=== PATIENT | female | born 1940 | race Two or more races ===

== ENCOUNTER 2021-08-02 11:08 | Observation (INO) ==
--- NOTE | 2021-08-02 12:34 | Emergency Department Note ---
History of Present Illness General Chief complaint: Hypertension Time Seen by Provider: 08/02/21 12:12 Source: patient and family Limitations: language barrier History of Present Illness Provider complaint: Difficulty walking Onset (ago): hour(s) Location: lower extremity, left and right Severity: mild Pain Consistency: + constant Quality: + other (Legs are heavy and very unsteady on her feet) Relieved By: + none Associated symptoms: + shortness of breath (Mild shortness of breath but now resolved); no chest pain, no cough, no fever/chills, no headaches, no nausea/vomiting or no weakness This is a 80-year-old female with a history of hypertension and remote CVA pre senting from home with difficulty walking. The patient and her son is providing history. I did offer a dial lathe operator but the patient son preferred to translate and she does have some grasp of the Beninese language. He got a phone call from her at 9 AM. She stated that she felt very unsteady on her feet and slightly short of breath so she went back to bed. She talk to her doctor over the telephone and her doctor sent her here for evaluation of possible CVA. The patient had a CVA about 15 years ago. She had some left-sided weakness at that time which mostly resolved. She states that she has been taking her high blood pressure medication. She does not have a history of diabetes. She currently denies any difficulty with her speech or swallowing or vision. She has no focal numbness or weakness. She states her legs feel somewhat heavy. She feels very unsure of her self when she is walking. She did fall a week ago and hit her face on the ground. She denies any headache and she was not evaluated at that time. Apparently she was walking behind the house and felt like her legs were weak and this caused her to fall. She had no LOC. She sat for a while and was able to walk back to the house after getting help from her son. She denies any vertigo, nausea or vomiting or dizziness. She has not had any fever or recent illness. She denies cough or cold symptoms, chest pain, abdominal pain, diarrhea or urinary symptoms. She is vaccinated for COVID-19. Home Medications Medication Instructions Recorded Confirmed Type aspirin 81 mg tablet 81 mg PO DAILY 08/02/21 08/02/21 History atenolol 50 mg-chlorthalidone 25 0.5 tab PO DAILY 08/02/21 08/02/21 History mg tablet atorvastatin 10 mg tablet 10 mg PO DAILY 08/02/21 08/02/21 History Allergies Allergy/AdvReac Type Severity Reaction Status Date / Time No Known Allergies Allergy Unverified 08/02/21 18:05 Past Med/Surg History Medical History (Updated 08/02/21 @ 20:18 by Ashutosh Waters MD) CVA (cerebral vascular accident) Hyperlipidemia Hypertension Social History Smoking Status: Never smoker Hx Alcohol Use: No Hx Substance Use: No Preferred Language: Marathi Communication Ability: Effective Communication Ability 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 and A total of 10 systems reviewed and were otherwise negative Physical Exam Vital Signs Vital Signs - 24 hr 08/02/21 11:16 08/02/21 11:30 08/02/21 12:00 Temperature Temperature Source Pulse Rate 83 90 71 Pulse Rate from SpO2 Sensor 83 88 71 Respiratory Rate 22 15 15 Blood Pressure 219/90 H 216/131 H 178/75 H Blood Pressure Mean 133 159 109 Pulse Oximetry 97 98 97 Oxygen Delivery Method Sepsis Recent Fever Within 48 Hours Sepsis New/Unexplained Change in Mental Status Sepsis Action Taken by Nursing 08/02/21 12:12 08/02/21 12:48 08/02/21 13:00 Temperature 37 C Temperature Source Oral Pulse Rate 80 87 90 Pulse Rate from SpO2 Sensor 91 H Respiratory Rate 18 15 Blood Pressure 185/84 H Blood Pressure Mean 117 Pulse Oximetry 98 99 Oxygen Delivery Method Room Air Sepsis Recent Fever Within 48 Hours No Sepsis New/Unexplained Change in Mental Status N/A Sepsis Action Taken by Nursing No Action Required 08/02/21 13:30 Temperature Temperature Source Pulse Rate 93 H Pulse Rate from SpO2 Sensor 90 Respiratory Rate 20 Blood Pressure 213/102 H Blood Pressure Mean 139 Pulse Oximetry 98 Oxygen Delivery Method Sepsis Recent Fever Within 48 Hours Sepsis New/Unexplained Change in Mental Status Sepsis Action Taken by Nursing Constitutional: Vital signs reviewed. Eyes: Pupils are equal round reactive to light. Conjunctiva are noninjected. ENT: Ecchymosis under the left orbit without significant tenderness. Pharynx is clear without erythema or exudate. Mucous membranes are moist. Neck supple without meningeal signs. Respiratory: Clear to auscultation bilaterally. Breath sounds are equal bilaterally. Cardiovascular: Regular rate and rhythm. No rubs or gallops. GI: Soft, nondistended and nontender. Bowel sounds are present. Musculoskeletal: No peripheral edema. No lower extremity tenderness. Integumentary: No cyanosis. or jaundice. Neurologic: The patient is awake and alert. Cranial nerves II-XII are intact. M otor is 5 out of 5 all extremities. Sensation is intact to light touch all extremities. Normal speech. No pronator drift. No limb ataxia. Wide-based gait not requiring any assistance. Psychiatric: Normal affect. Course Administered Medications Discontinued Medications Amlodipine Besylate (Amlodipine Besylate 5 Mg Tab) 5 mg PO NOW ONE Stop: 08/02/21 16:57 Last Admin: 08/02/21 18:29 Dose: 5 mg Documented by: [id number] Ioversol (Optiray 320 125ml) 119 ml IV ONCE ONE Stop: 08/02/21 12:36 Last Admin: 08/02/21 12:35 Dose: 119 ml Documented by: [id number] Medical Decision Making Differential Diagnosis TIA, CVA, intracranial hemorrhage, intracranial mass, metabolic derangement, infection, cardiac Medical Records Attestation: I reviewed the patient's medical records. I did perform a limited focused review of portions of the patient's old chart on the electronic medical record. The patient has had no prior visits to this hospital. Home Medications Current Medication List: was personally reviewed by me Laboratory Data Attestation: I reviewed the patient's lab results. Result diagrams: 08/02/21 12:17 08/02/21 12:26 Lab Results 08/02/21 08/02/21 08/02/21 Range/Units 12:17 12:26 12:26 WBC 7.64 (4.8-10.8) K/uL RBC 4.92 (4.2-5.4) M/uL Hgb 12.9 (12.0-16.0) g/dL Hct 40.2 (37-47) % MCV 81.7 (80-100) fL MCH 26.2 (25-34) pg MCHC 32.1 (32-36) g/dL RDW Std Deviation 44.1 (36.4-46.3) fL RDW Coeff of Jennifer 14.7 H (11.5-14.5) % Plt Count 244 (130-400) K/uL MPV 9.8 (7.4-10.4) fL Immature Gran % (Auto) 0.1 % Neut % (Auto) 70.9 % Lymph % (Auto) 17.5 % Cassia % (Auto) 7.1 % Eos % (Auto) 4.1 % Baso % (Auto) 0.3 % Neut # (Auto) 5.42 (1.4-6.5) K/uL Lymph # (Auto) 1.34 (1.2-3.4) K/uL Cassia # (Auto) 0.54 (0.11-0.59) K/uL Eos # (Auto) 0.31 (0-0.5) K/uL Baso # (Auto) 0.02 (0-0.2) K/uL Immature Gran # (Auto) 0.01 (0.00-0.02) K/uL PT 10.3 (9.0-12.0) Seconds INR 1.0 (0.9-1.1) APTT 25.9 (21.0-31.0) Seconds PTT Ratio 1.0 Sodium 139 (136-145) mmol/L Potassium 3.9 (3.5-5.1) mmol/L Chloride 105 (98-107) mmol/L Carbon Dioxide 28 (21-32) mmol/L Anion Gap 6.0 (3-11) BUN 14 (7-18) mg/dl Creatinine 0.88 (0.6-1.2) mg/dl Est Cr Clr Drug Dosing 48.4 ml/min Est GFR ( Amer) 72.4 ml/min Est GFR (Non-Af Amer) 62.5 ml/min BUN/Creatinine Ratio 15.9 (10-20) Glucose 117 H (70-99) mg/dl POC Glucose (70-99) mg/dl Calcium 9.1 (8.5-10.1) mg/dl Magnesium 2.3 (1.8-2.4) mg/dl Total Bilirubin 1.1 H (0.2-1) mg/dl AST 10 L (15-37) U/L ALT 18 (12-78) U/L Alkaline Phosphatase 105 (45-117) U/L Troponin I < 0.015 (0-0.045) ng/ml Total Protein 7.9 (6.4-8.2) gm/dl Albumin 3.4 (3.4-5.0) gm/dl Globulin 4.5 H (2.5-4.0) gm/dl Albumin/Globulin Ratio 0.8 L (0.9-2) 08/02/21 Range/Units 12:30 WBC (4.8-10.8) K/uL RBC (4.2-5.4) M/uL Hgb (12.0-16.0) g/dL Hct (37-47) % MCV (80-100) fL MCH (25-34) pg MCHC (32-36) g/dL RDW Std Deviation (36.4-46.3) fL RDW Coeff of Jennifer (11.5-14.5) % Plt Count (130-400) K/uL MPV (7.4-10.4) fL Immature Gran % (Auto) % Neut % (Auto) % Lymph % (Auto) % Cassia % (Auto) % Eos % (Auto) % Baso % (Auto) % Neut # (Auto) (1.4-6.5) K/uL Lymph # (Auto) (1.2-3.4) K/uL Cassia # (Auto) (0.11-0.59) K/uL Eos # (Auto) (0-0.5) K/uL Baso # (Auto) (0-0.2) K/uL Immature Gran # (Auto) (0.00-0.02) K/uL PT (9.0-12.0) Seconds INR (0.9-1.1) APTT (21.0-31.0) Seconds PTT Ratio Sodium (136-145) mmol/L Potassium (3.5-5.1) mmol/L Chloride (98-107) mmol/L Carbon Dioxide (21-32) mmol/L Anion Gap (3-11) BUN (7-18) mg/dl Creatinine (0.6-1.2) mg/dl Est Cr Clr Drug Dosing ml/min Est GFR ( Amer) ml/min Est GFR (Non-Af Amer) ml/min BUN/Creatinine Ratio (10-20) Glucose (70-99) mg/dl POC Glucose 101 H (70-99) mg/dl Calcium (8.5-10.1) mg/dl Magnesium (1.8-2.4) mg/dl Total Bilirubin (0.2-1) mg/dl AST (15-37) U/L ALT (12-78) U/L Alkaline Phosphatase (45-117) U/L Troponin I (0-0.045) ng/ml Total Protein (6.4-8.2) gm/dl Albumin (3.4-5.0) gm/dl Globulin (2.5-4.0) gm/dl Albumin/Globulin Ratio (0.9-2) Imaging Data Radiologist's Impression: Head CT 08/02/21 12:26 CT OF THE HEAD WITHOUT CONTRAST CLINICAL HISTORY: ataxia COMPARISON STUDY: No previous studies for comparison. CT DOSE: 523.20 mGycm TECHNIQUE: Helical axial images of the head were obtained without IV contrast. Automated exposure control was utilized for the study. A dose lowering technique was utilized adhering to the principles of ALARA. FINDINGS: No acute intracranial hemorrhage, midline shift or mass effect is present. In white matter hypodensity suggests small vessel disease. A 6 mm hypodensity within the right thalamus is noted. The ventricular system is unremarkable. The basal cisterns are patent. No extra-axial collections are present. There are no findings to suggest acute dural sinus thrombosis or acute territorial infarct. No significant calvarial abnormalities are present. Visual ized portions of the sinuses and mastoid air cells are clear. IMPRESSION: 1. No acute intracranial hemorrhage or mass effect. 2. 6 mm hypodensity within the thalamus. This represents an age indeterminate lacunar infarct. ACT 112: Negative or not required by law. Electronically signed by: Haim Rolon M.D. 08/02/2021 12:42 PM Head CTA 08/02/21 12:26 HEAD CTA HISTORY: Ataxia. Stroke like symptoms. TECHNIQUE: Multiaxial CT images of the head were performed both before and after the intravenous administration of contrast to evaluate the major cerebral vessels. Maximum intensity projection images were also obtained. A dose lowering technique was utilized adhering to the principles of ALARA. COMPARISON: Head CT 08/02/2021. FINDINGS: There is again noted a 6 mm hypodense focus within the right thalamus. This is better appreciated on the same day head CT. Visualized intracranial internal carotid arteries, distal vertebral arteries, and basilar artery are widely patent. There is no significant stenosis, occlusion, or aneurysm seen wit hin the bilateral ACAs, MCAs, or taker out. The major dural venous sinuses are patent. Moderate calcified plaque within the bilateral carotid siphons. IMPRESSION: No significant stenosis, occlusion, or aneurysm within the [place]. ACT 112: Negative or not required by law. Electronically signed by: Daniel Lara M.D. 08/02/2021 1:05 PM Neck CTA 08/02/21 12:26 CT ANGIOGRAM OF THE NECK CLINICAL HISTORY: Strokelike symptoms. COMPARISON STUDY: No priors. TECHNIQUE: Following the IV administration of 119 of Optiray 320, CT angiogram of the neck was performed from the aortic arch to the skull base. Images are rev iewed in the axial, sagittal, and coronal planes. 3-D MIPS images are created and assessed. IV contrast was administered without complication. All measurements were calculated based on NASCET criteria. A dose lowering technique was utilized adhering to the principles of ALARA. FINDINGS: Thoracic aorta: Visualized portions of the thoracic aorta are normal in caliber. The aortic arch demonstrates standard 3-vessel anatomy. Right carotid arterial system: The right common carotid artery is widely patent, as are the right internal and external carotid arteries. Mild calcified plaque is seen in the carotid bulb. Left carotid arterial system: The left common carotid artery is widely patent, as are the left internal and external carotid arteries. Calcified plaque is noted in the carotid bulb. Vertebral arteries: The vertebral arteries are widely patent bilaterally and codominant. Subclavian arteries: Widely patent bilaterally. Intracranial vasculature: The visualized intracranial vessels at the skull base are patent. See report of CT angiogram of the brain performed concurrently for detailed intracranial findings. Jugular veins: Widely patent bilaterally. Brain parenchyma: The visualized brain parenchyma the skull base is within normal limits. Lung apices: Partially visualized upper lobe lung parenchyma appears clear. Soft tissues: The visualized pharyngeal soft tissues are normal in appearance noting angiographic phase technique. The oropharyngeal airway appears widely patent. The thyroid gland is enlarged, heterogeneous, and infiltrated by numerous low-attenuation nodules. These measure up to 3.5 cm. The thyroid gland extends into the mediastinum and causes rightward deviation of the trachea. The salivary glands are normal in appearance. No cervical lymphadenopathy is seen. Skeletal structures: The skeletal structures are osteopenic. The visualized calvarium at the skull base appears intact. The imaged cervical spine is maintained noting mild multilevel spondylosis. No lytic or blastic lesion is seen. Sinuses and mastoids: The visualized paranasal sinuses are clear. The mastoid air cells are well pneumatized. IMPRESSION: 1. Unremarkable CT angiogram of the neck. 2. Multinodular goiter. ACT 112: Negative or not required by law. Electronically signed by: Stefano Ortega M.D. 08/02/2021 1:03 PM ECG Data Attestation: I personally reviewed and interpreted this ECG as follows: Indication: + other (Strokelike symptoms) Rate (beats per minute): 79 Rhythm: + normal sinus ECG Calvin: + Normal ECG ST segments: no ST elevation ECG Findings: no PVCs Head Trauma GCS Score: 15 MDM Narrative I did evaluate the patient as noted above. I did obtain history from the patient as well as her son. Apparently she has had difficulty walking this morning at 9 AM with some shortness of breath. She denies any chest pain. She had an episode similar to this about a week ago when she fell outside of her house hitting her head. She was not evaluated at that time. On exam here she is neurologically intact. She does have a wide-based gait but does not require any assistance walking. I did call a stroke alert and spoke to Dr. Villanueva of [place] stroke neurology. She agreed with me that the patient is not an IV TPA candidate as she has no focal deficits, she is severely hypertensive and the d iagnosis of stroke is not clear at this time. IV access was established. I did place an order for continuous cardiac monitoring. The monitor showed normal sinus rhythm at a rate of 90 bpm. I did order and personally review the patient's 12-lead EKG as described above. She has no acute ischemic changes. I did order and review the patient's blood work as noted in the electronic medical record. CBC and electrolytes are unremarkable. POC glucose is 101. Troponin is negative. I did order a CT of the head and stat angiogram of the head and neck. I did review the images myself as well as the radiology report as described above. She has an age indeterminate lacunar infarct in the right t halamus. This may represent her prior stroke as she did have left-sided symptoms at that time. No acute stroke is noted. There is no hemorrhage. There is no remarkable lesions on angiogram. I did reassess the patient. I did discuss the test results with the patient and her son. I did recommend hospitalization for further evaluation and MRI of the brain. Covid screening was negative. I did discuss case with the hospitalist and correctional case records supervisor. Later her PCP called to see how she was doing. She told me that the patient had told her on the phone today that she had some chest pressure when this occurred and that when she fell a week ago she had near syncopal symptoms. This was not conveyed to me earlier by the son or the patient. I therefore let the hospitalist service know who will order a echocardiogram and repeat cardiac biomarkers. Impression & Plan Ataxia, Poorly-controlled hypertension, Acute head injury, Chest pain, Near syncope Discharge Plan Visit Data Chief Complaint: Hypertension ED Provider: Ashutosh Waters Discharge Problem: Ataxia, Poorly-controlled hypertension, Acute head injury, Chest pain, Near syncope Patient Disposition: Admitted As Inpatient Discharge Instructions Interventions: ED Discharge Assessment Last Done: 08/02/21 16:28
[2021-08-02] MEDS ORDERED: OPTIRAY 320 125ml IV ONE (12:35)
[2021-08-02 12:38] LABS: Basophils # (auto) 0.02 K/uL (0-0.2); Basophils % (auto) 0.3 %; Eosinophils # (auto) 0.31 K/uL (0-0.5); Eosinophils % (auto) 4.1 %; Hematocrit (blood only) 40.2 % (37-47); Hemoglobin 12.9 g/dL (12.0-16.0); Immature Granulocytes # (auto) 0.01 K/uL (0.00-0.02); Immature Granulocytes % (auto) 0.1 %; Lymphocytes # (auto) 1.34 K/uL (1.2-3.4); Lymphocytes % (auto) 17.5 %; Mean Corpuscular Hemoglobin 26.2 pg (25-34); Mean Corpuscular Hgb Conc 32.1 g/dL (32-36); Mean Corpuscular Volume 81.7 fL (80-100); Mean Platelet Volume 9.8 fL (7.4-10.4); Monocytes # (auto) 0.54 K/uL (0.11-0.59); Monocytes % (auto) 7.1 %; Neutrophils # (auto) 5.42 K/uL (1.4-6.5); Neutrophils % (auto) 70.9 %; Platelet Count 244 K/uL (130-400); RDW Coefficient of Variation 14.7 % (11.5-14.5); RDW Standard Deviation 44.1 fL (36.4-46.3); Red Blood Count 4.92 M/uL (4.2-5.4); White Blood Count 7.64 K/uL (4.8-10.8)
--- NOTE | 2021-08-02 12:43 | CT Scan Report ---
CT OF THE HEAD WITHOUT CONTRAST CLINICAL HISTORY: ataxia COMPARISON STUDY: No previous studies for comparison. CT DOSE: 523.20 mGycm TECHNIQUE: Helical axial images of the head were obtained without IV contrast. Automated exposure con trol was utilized for the study. A dose lowering technique was utilized adhering to the principles o f ALARA. FINDINGS: No acute intracranial hemorrhage, midline shift or mass effect is present. In white matter hypodensity suggests small vessel disease. A 6 mm hypodensity within the right thalamus is noted. The ventricular system is unremarkable. The basal cisterns are patent. No extra-axial collections are pr esent. There are no findings to suggest acute dural sinus thrombosis or acute territorial infarct. No significant calvarial abnormalities are present. Visualized portions of the sinuses and mastoid air cells are clear. IMPRESSION: 1. No acute intracranial hemorrhage or mass effect. 2. 6 mm hypodensity within the thalamus. This represents an age indeterminate lacunar infarct. ACT 112: Negative or not required by law. Electronically signed by: Haim Rolon M.D. 08/02/2021 12:42 PM
[2021-08-02 12:50] LABS: Partial Thromboplastin Time 25.9 Seconds (21.0-31.0); Prothrombin Time 10.3 Seconds (9.0-12.0)
[2021-08-02 12:54] LABS: Alanine Aminotransferase 18 U/L (12-78); Albumin Level 3.4 gm/dl (3.4-5.0); Aspartate Aminotransferase 10 U/L (15-37); BUN Creatinine Ratio 15.9 (10-20); Blood Urea Nitrogen 14 mg/dl (7-18); Calcium 9.1 mg/dl (8.5-10.1); Carbon Dioxide 28 mmol/L (21-32); Chloride 105 mmol/L (98-107); Creatinine Clr Calc Pharmacy 48.4 ml/min; Est GFR (African American) 72.4 ml/min; Est GFR (Non-African American) 62.5 ml/min; Glucose 117 mg/dl (70-99); Magnesium 2.3 mg/dl (1.8-2.4); Potassium 3.9 mmol/L (3.5-5.1); Sodium 139 mmol/L (136-145)
[2021-08-02 12:59] LABS: Albumin Globulin Ratio 0.8 (0.9-2); Alkaline Phosphatase 105 U/L (45-117); Bilirubin,Total 1.1 mg/dl (0.2-1); Globulin 4.5 gm/dl (2.5-4.0); Total Protein 7.9 gm/dl (6.4-8.2); Troponin I < 0.015 ng/ml (0-0.045)
--- NOTE | 2021-08-02 13:05 | CT Scan Report ---
CT ANGIOGRAM OF THE NECK CLINICAL HISTORY: Strokelike symptoms. COMPARISON STUDY: No priors. TECHNIQUE: Following the IV administration of 119 of Optiray 320, CT angiogram of the neck was perfor med from the aortic arch to the skull base. Images are reviewed in the axial, sagittal, and coronal p lanes. 3-D MIPS images are created and assessed. IV contrast was administered without complication. A ll measurements were calculated based on NASCET criteria. A dose lowering technique was utilized adh ering to the principles of ALARA. FINDINGS: Thoracic aorta: Visualized portions of the thoracic aorta are normal in caliber. The aortic arch demo nstrates standard 3-vessel anatomy. Right carotid arterial system: The right common carotid artery is widely patent, as are the right int ernal and external carotid arteries. Mild calcified plaque is seen in the carotid bulb. Left carotid arterial system: The left common carotid artery is widely patent, as are the left civil engineering intern al and external carotid arteries. Calcified plaque is noted in the carotid bulb. Vertebral arteries: The vertebral arteries are widely patent bilaterally and codominant. Subclavian arteries: Widely patent bilaterally. Intracranial vasculature: The visualized intracranial vessels at the skull base are patent. See repor t of CT angiogram of the brain performed concurrently for detailed intracranial findings. Jugular veins: Widely patent bilaterally. Brain parenchyma: The visualized brain parenchyma the skull base is within normal limits. Lung apices: Partially visualized upper lobe lung parenchyma appears clear. Soft tissues: The visualized pharyngeal soft tissues are normal in appearance noting angiographic pha se technique. The oropharyngeal airway appears widely patent. The thyroid gland is enlarged, heteroge neous, and infiltrated by numerous low-attenuation nodules. These measure up to 3.5 cm. The thyroid g land extends into the mediastinum and causes rightward deviation of the trachea. The salivary glands are normal in appearance. No cervical lymphadenopathy is seen. Skeletal structures: The skeletal structures are osteopenic. The visualized calvarium at the skull ba se appears intact. The imaged cervical spine is maintained noting mild multilevel spondylosis. No lyt ic or blastic lesion is seen. Sinuses and mastoids: The visualized paranasal sinuses are clear. The mastoid air cells are well pneu matized. IMPRESSION: 1. Unremarkable CT angiogram of the neck. 2. Multinodular goiter. ACT 112: Negative or not required by law. Electronically signed by: Stefano Ortega M.D. 08/02/2021 1:03 PM
--- NOTE | 2021-08-02 13:06 | CT Scan Report ---
HEAD CTA HISTORY: Ataxia. Stroke like symptoms. TECHNIQUE: Multiaxial CT images of the head were performed both before and after the intravenous admi nistration of contrast to evaluate the major cerebral vessels. Maximum intensity projection images we re also obtained. A dose lowering technique was utilized adhering to the principles of ALARA. COMPARISON: Head CT 08/02/2021. FINDINGS: There is again noted a 6 mm hypodense focus within the right thalamus. This is better appre ciated on the same day head CT. Visualized intracranial internal carotid arteries, distal vertebral a rteries, and basilar artery are widely patent. There is no significant stenosis, occlusion, or aneury sm seen within the bilateral ACAs, MCAs, or food cooking machine operator. The major dural venous sinuses are patent. Moderate calcified plaque within the bilateral carotid siphons. IMPRESSION: No significant stenosis, occlusion, or aneurysm within the [place]. ACT 112: Negative or not required by law. Electronically signed by: Daniel Lara M.D. 08/02/2021 1:05 PM
--- NOTE | 2021-08-02 13:33 | History & Physical Report ---
Date of Service August 02, 2021 Assessment & Plan (1) Gait disturbance: (2) CVA (cerebral vascular accident): Plan: -Admit to tele for observation for possible CVA -stroke order set completed -CT of the head showing old 6 mm lacunar stroke, negative CTA head and neck today -Check 2D echo -Neurology consulted- Dr. Fuentes -Ordered MRI of the brain -A1c and lipid panel with a.m. labs -PT/OT consults, patient lives at home with her son (present at bedside) and d [id number], at baseline walks without ambulatory assistive device -Already on baby aspirin, atorvastatin 10 mg will be increased to high intensity statin therapy if pt can tolerate this (3) Hypertensive urgency: Plan: -BP elevated earlier today at 219/90 with dizziness which is now resolved, patient reported taking atenolol-chlorthalidone half tablet versus 1 tablet on her med rec in [place]. -Negative troponin x 1, will trend x 2 more sets to rule out ACS. Pt denies chest pain, shortness of breath currently. -Echo ordered -Consider cardiology consult (4) Hyperlipidemia: Plan: -Statin therapy as above -Check lipid panel with a.m. labs (5) Obesity (BMI 30.0-34.9): Plan: -BMI 31.7, diet exercise to be encouraged throughout hospital stay DVT ppx: - patricia saunderss CODE: DNR/DNI Dispo: From home, likely to remain in the hospital x 1 day Son, Desire, can be reached at [phone] if needed for questions and updates. 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 Approximately 1 week ago patient was outside for a walk in a park near her home. All of a sudden she became unbalanced and fell, striking her face causing bruising around her left eye, however did not seek medical attention at that time. Today at approximately 9 AM she redeveloped gait instability during a walk again but did not fall, no loss of balance. She called her PCP this morning and noted chest pressure/heaviness. Currently she denies chest complaints, dizziness, or shortness of breath. Her son, Daniel, who is present at bedside noting elevated blood pressure, and PCP instructed them to come to the ER for work-up. Her son acts as maintenance construction helper during our visit and all their questions and concerns were addressed. Here is the ER she was stroke alert. No acute findings seen on CT. Home Medications Medication Instructions Recorded Confirmed Type aspirin 81 mg tablet 81 mg PO DAILY 08/02/21 08/02/21 History atenolol 50 mg-chlorthalidone 25 0.5 tab PO DAILY 08/02/21 08/02/21 History mg tablet atorvastatin 10 mg tablet 10 mg PO DAILY 08/02/21 08/02/21 History Past Med/Surg History Medical History (Updated 08/02/21 @ 14:57 by Steff Black PA-C) CVA (cerebral vascular accident) Hyperlipidemia Hypertension Social History Smoking Status: Never smoker Preferred Language: Joseluis Feels Safe at Home: Yes Review of Systems Review of Systems: Constitutional: No fever, sweats or chills Eyes: No diplopia, no worsening or blurred vision ENT: normal hearing, no trouble swallowing Respiratory: No cough, sputum, dyspnea at rest or on exertion Cardiovascular: No chest pain, tightness or palpitations Abdomen: No pain, nausea, vomiting, diarrhea or constipation Musculoskeletal: Left knee pain s/p fall 1 week ago, no other joint pain, calf pain, swelling Neurologic: As per HPI. Otherwise No weakness, numbness/tingling, or balance problems Psychiatric: + anxiety, no depression Skin: + ecchymosis around left eye s/p fall 1 week ago, otherwise no rash or itch Physical Exam Physical Exam: General: awake, alert, no apparent distress Head: Normocephalic, + ecchymosis surrounding the left eye orbit , no icteric involvement ENT: PERRL, EOMI, no pharyngeal exudate, mucous membranes moist Chest: Clear to auscultation, on room air, no adventitious breath sounds Cardiac: Regular rate and rhythm, no murmur, no JVD, normal peripheral pulses, good capillary refill Abdominal: NABS x 4 quadrants, soft, nondistended, nontender to palpation, no rebound or guarding Extremities: Normal inspection, no peripheral edema or erythema, calfs nontender to palpation Psych: Normal mood and affect Neuro: AAO x 3, strength intact bilaterally and rated 5/5, slight weakness compared in LLE to the RLE with hip flexor strength testing. No motor deficits, cerebellar movements are intact, can perform heel to baker testing without difficulty, speech is clear, no peripheral sensory deficits Results & Data Results & Data ([facility]) Vital Signs (Past 12 Hours) Vital Signs Temp Pulse Resp BP Pulse Ox 08/02/21 12:12 37 C 80 18 98 08/02/21 12:00 71 15 178/75 H 97 08/02/21 11:30 90 15 216/131 H 98 08/02/21 11:16 83 22 219/90 H [address] 08/02/21 12:26 CT OF THE HEAD WITHOUT CONTRAST CLINICAL HISTORY: ataxia COMPARISON STUDY: No previous studies for comparison. CT DOSE: 523.20 mGycm TECHNIQUE: Helical axial images of the head were obtained without IV contrast. Automated exposure control was utilized for the study. A dose lowering technique was utilized adhering to the principles of ALARA. FINDINGS: No acute intracranial hemorrhage, midline shift or mass effect is present. In white matter hypodensity suggests small vessel disease. A 6 mm hypodensity within the right thalamus is noted. The ventricular system is unremarkable. The basal cisterns are patent. No extra-axial collections are present. There are no findings to suggest acute dural sinus thrombosis or acute territorial infarct. No significant calvarial abnormalities are present. Visualized portions of the sinuses and mastoid air cells are clear. IMPRESSION: 1. No acute intracranial hemorrhage or mass effect. 2. 6 mm hypodensity within the thalamus. This represents an age indeterminate lacunar infarct. ACT 112: Negative or not required by law. Electronically signed by: Haim Rolon M.D. 08/02/2021 12:42 PM Head CTA 08/02/21 12:26 HEAD CTA HISTORY: Ataxia. Stroke like symptoms. TECHNIQUE: Multiaxial CT images of the head were performed both before and after the intravenous administration of contrast to evaluate the major cerebral vessels. Maximum intensity projection images were also obtained. A dose lowering technique was utilized adhering to the principles of ALARA. COMPARISON: Head CT 08/02/2021. FINDINGS: There is again noted a 6 mm hypodense focus within the right thalamus. This is better appreciated on the same day head CT. Visualized intracranial internal carotid arteries, distal vertebral arteries, and basilar artery are widely patent. There is no significant stenosis, occlusion, or aneurysm seen within the bilateral ACAs, MCAs, or procurement agent. The major dural venous sinuses are patent. Moderate calcified plaque within the bilateral carotid siphons. IMPRESSION: No significant stenosis, occlusion, or aneurysm within the [place]. ACT 112: Negative or not required by law. Electronically signed by: Daniel Lara M.D. 08/02/2021 1:05 PM Neck CTA 08/02/21 12:26 CT ANGIOGRAM OF THE NECK CLINICAL HISTORY: Strokelike symptoms. COMPARISON STUDY: No priors. TECHNIQUE: Following the IV administration of 119 of Optiray 320, CT angiogram of the neck was performed from the aortic arch to the skull base. Images are reviewed in the axial, sagittal, and coronal planes. 3-D MIPS images are created and assessed. IV contrast was administered without complication. All measurements were calculated based on NASCET criteria. A dose lowering technique was utilized adhering to the principles of ALARA. FINDINGS: Thoracic aorta: Visualized portions of the thoracic aorta are normal in caliber. The aortic arch demonstrates standard 3-vessel anatomy. Right carotid arterial system: The right common carotid artery is widely patent, as are the right internal and external carotid arteries. Mild calcified plaque is seen in the carotid bulb. Left carotid arterial system: The left common carotid artery is widely patent, as are the left internal and external carotid arteries. Calcified plaque is noted in the carotid bulb. Vertebral arteries: The vertebral arteries are widely patent bilaterally and codominant. Subclavian arteries: Widely patent bilaterally. Intracranial vasculature: The visualized intracranial vessels at the skull base are patent. See report of CT angiogram of the brain performed concurrently for detailed intracranial findings. Jugular veins: Widely patent bilaterally. Brain parenchyma: The visualized brain parenchyma the skull base is within normal limits. Lung apices: Partially visualized upper lobe lung parenchyma appears clear. Soft tissues: The visualized pharyngeal soft tissues are normal in appearance noting angiographic phase technique. The oropharyngeal airway appears widely patent. The thyroid gland is enlarged, heterogeneous, and infiltrated by numerous low-attenuation nodules. These measure up to 3.5 cm. The thyroid gland extends into the mediastinum and causes rightward deviation of the trachea. The salivary glands are normal in appearance. No cervical lymphadenopathy is seen. Skeletal structures: The skeletal structures are osteopenic. The visualized calvarium at the skull base appears intact. The imaged cervical spine is maintained noting mild multilevel spondylosis. No lytic or blastic lesion is seen. Sinuses and mastoids: The visualized paranasal sinuses are clear. The mastoid air cells are well pneumatized. IMPRESSION: 1. Unremarkable CT angiogram of the neck. 2. Multinodular goiter. ACT 112: Negative or not required by law. Electronically signed by: Stefano Ortega M.D. 08/02/2021 1:03 PM ECG Additional Comments: 02-AUG-2021 11:18:16 [facility]-EDSTAT ROUTINE RETRIEVAL Normal sinus rhythm Normal ECG No previous ECGs available 25mm/s 10mm/mV 150Hz 9.0.9 12SL 241 HD LATA: 12 Unconfirmed Vent. rate 79 BPM [place] interval 176 ms QRS duration 64 ms QT/QTc 370/424 ms Code Status & VTE Plan Code Status DNR/DNI - discussed with the patient and her son at bedside Supervising Physician Co-Signing Physician Notes History and physical exam performed by me History detailed by Steff Black PA-C, notable for 80-year-old female, [place] language of [place], with PMHx of multinodular goiter, CVA 15 years ago who presents with gait abnormality and instability. Son reported the only deficits from old stroke was some minimal occasional weakness on left side. Patient ambulates independently without cane or walker Had an episode of gait abnormality and fall 10 days ago without any loss of consciousness with bruise around left eye. No symptoms since until today when patient felt unsteady on her feet. Patient denied any chest pain but reported mild shortness of breath earlier. No cough. Physical exam notable for ecchymoses on left side of face, no dysdiadochokinesia/power grossly normal in extremities/no slurred speech/no sensory deficits. Blood work grossly unremarkable CT head show 6mm hypodensity in thalamus which represents age indeterminate lacunar infarct -Gait abnormality Ambulatory dysfunction Poorly controlled hypertension Based on history, there's concern for TIA/CVA on presentation Will complete stroke work up with Echo, PT/OT, A1c, lipid panel, Neuro consult Get MRI brain Continue aspirin Other possibility may be due to poorly controlled hypertension Monitor Will let BP run a bit higher for now. Monitor and manage as needed Follow up outstanding work up
[2021-08-02 15:07] LABS: Appearance Urine Clear (Clear); Bacteria Urine Automated 1+ (Negative); Bilirubin Urine Negative (Negative); Blood Urine Negative (Negative); Cast Urine Automated 0 /lpf (0-5); Color Urine Yellow; Glucose Urine UA Negative (Negative); Ketones Urine Negative (Negative); Leukocyte Esterase Urine 2+ (Negative); Nitrite Urine Negative (Negative); Protein Urine Negative (Negative); RBC Urine Automated 0-4 /hpf (0-4); Specific Gravity Urine 1.004 (1.000-1.030); Urobilinogen Urine Negative (Negative)
[2021-08-02] MEDS ORDERED: PHARMACIST DISCHARGE MED REC CONSULT PRN (16:47)
[2021-08-02] MEDS ORDERED: amLODIPine BESYLATE 5 MG TAB PO ONE (16:56)
[2021-08-02] MEDS ORDERED: PATIENT'S ALLERGY INFO NEEDS ENTERED SCH (17:00)
[2021-08-02] MEDS ORDERED: PNEUMOCOCCAL POLYSACCHARIDES 25 MCG/0.5 ML VIAL/SYR IM ONE (18:04)
[2021-08-02] MEDS ORDERED: LABETALOL HCL IV 5 MG/ML 20ML IV PRN (21:51)
--- NOTE | 2021-08-02 22:24 | Magnetic Resonance Report ---
MRI OF THE BRAIN WITHOUT CONTRAST CLINICAL HISTORY: Dizziness. Recent fall. Evaluate for cerebrovascular accident. COMPARISON STUDY: Head CT and CTA of the head performed earlier today. TECHNIQUE: Utilizing a 1.5 Fatmata magnet and dedicated coil, multiplanar, multiecho imaging of the bra in was performed without IV contrast. FINDINGS: There are no foci of restricted diffusion to suggest acute infarct. No acute intracranial h emorrhage, midline shift or mass effect is present. Basal cisterns are patent. There are no extra axi al collections. Moderate atrophy is noted. This accounts for mild ventricular dilatation. No intracra nial masses are identified on this unenhanced exam. There is an old 5 mm lacunar infarct within the r ight thalamus. White matter T2 hyperintense foci favor small vessel disease. Calvarial signal is norm al. IMPRESSION: No acute intracranial findings. ACT 112: Negative or not required by law. Electronically signed by: Haim Rolon M.D. 08/02/2021 10:23 PM
[2021-08-03 04:43] LABS: Basophils # (auto) 0.03 K/uL (0-0.2); Basophils % (auto) 0.3 %; Eosinophils # (auto) 0.25 K/uL (0-0.5); Eosinophils % (auto) 2.3 %; Hematocrit (blood only) 39.3 % (37-47); Hemoglobin 12.9 g/dL (12.0-16.0); Immature Granulocytes # (auto) 0.02 K/uL (0.00-0.02); Immature Granulocytes % (auto) 0.2 %; Lymphocytes # (auto) 1.82 K/uL (1.2-3.4); Lymphocytes % (auto) 16.7 %; Mean Corpuscular Hemoglobin 26.6 pg (25-34); Mean Corpuscular Hgb Conc 32.8 g/dL (32-36); Mean Platelet Volume 9.4 fL (7.4-10.4); Monocytes # (auto) 0.97 K/uL (0.11-0.59); Monocytes % (auto) 8.9 %; Neutrophils # (auto) 7.84 K/uL (1.4-6.5); Neutrophils % (auto) 71.6 %; Platelet Count 232 K/uL (130-400); RDW Coefficient of Variation 14.8 % (11.5-14.5); RDW Standard Deviation 43.9 fL (36.4-46.3); Red Blood Count 4.85 M/uL (4.2-5.4); White Blood Count 10.93 K/uL (4.8-10.8)
[2021-08-03 04:59] LABS: BUN Creatinine Ratio 19.3 (10-20); Blood Urea Nitrogen 17 mg/dl (7-18); Calcium 8.8 mg/dl (8.5-10.1); Carbon Dioxide 25 mmol/L (21-32); Chloride 107 mmol/L (98-107); Creatinine Clr Calc Pharmacy 48.4 ml/min; Est GFR (African American) 72.4 ml/min; Est GFR (Non-African American) 62.5 ml/min; Glucose 134 mg/dl (70-99); Potassium 3.5 mmol/L (3.5-5.1); Sodium 139 mmol/L (136-145)
[2021-08-03 05:04] LABS: Chol HDL Ratio 3; Cholesterol 133 mg/dl (0-200); HDL Cholesterol 54 mg/dl; LDL Cholesterol Calculated 58 mg/dl; Triglycerides 105 mg/dl (0-150); Troponin I < 0.015 ng/ml (0-0.045); VLDL Cholesterol 21 mg/dl
--- NOTE | 2021-08-03 07:01 | Electrocardiogram Report ---
Test Reason : Blood Pressure : / mmHG Vent. Rate : 079 BPM Atrial Rate : 079 BPM P-R Int : 176 ms QRS Dur : 064 ms QT Int : 370 ms P-R-T Axes : 038 017 029 degrees QTc Int : 424 ms Normal sinus rhythm Normal ECG No previous ECGs available Confirmed by Gonzales Doss ([id number]) on 08/03/2021 7:01:22 AM Referred By: Confirmed By:Gonzales Doss
[2021-08-03 07:59] LABS: Estimated Average Glucose 140 mg/dl; Hemoglobin A1C 6.5 % (4.5-5.6)
[2021-08-03] MEDS ORDERED: ASPIRIN 81 MG ECTAB PO SCH (09:00)
[2021-08-03] MEDS ORDERED: CHLORTHALIDONE 25 MG TAB PO SCH ×2 (09:00)
[2021-08-03] MEDS ORDERED: ATENOLOL 50 MG TABLET PO SCH (09:00)
[2021-08-03] MEDS ORDERED: ATORVASTATIN 10 MG TAB PO SCH (09:00)
[2021-08-03] MEDS ORDERED: ATENOLOL 25 MG TABLET PO SCH (09:00)
[2021-08-03] MEDS ORDERED: ATENOLOL CHLORTHALIDONE PO SCH (09:00)
--- NOTE | 2021-08-03 12:36 | Consultation Report ---
DATE OF CONSULTATION: 08/03/2021. CHIEF COMPLAINT: Gait disturbance or ataxia. HISTORY OF PRESENT ILLNESS: A 80-year-old woman with the teller language of [place]athi in a past medical history of type 2 diabetes, prior lacunar infarct 15 years ago involving the right thalamus and posterior left basal ganglia who was admitted to the hospital yesterday for a gait abnormality and gait difficulty. 1 week ago, the patient was outside on a walk in the park near her house and had some unbalance and fell. She did strike her head causing a bruise around the left eye. However, she did not seek medical attention. Unfortunately, yesterday around 9:00 a.m., she redeveloped gait difficulty during the walk, but did not fall or no loss of balance. She called her PCP and noted chest pressure and heaviness. She also was noted to have elevated blood pressures, so she was directed to come to the ER for further workup. Her son does act as a electric spot welder during their visit and the questions and concerns were addressed in the ER, stroke alert was called. No acute findings were seen on CT. The patient did not receive IV tPA or tenecteplase. The patient was admitted with Neurology consult upon admission due to concern for stroke. HOME MEDICATIONS: She is on aspirin 81 mg daily, atenolol 50 mg, chlorthalidone 25 mg, Lipitor 10 mg. PAST MEDICAL HISTORY: Type 2 diabetes, hypertension, hyperlipidemia, lacunar infarct. PAST SURGICAL HISTORY: Reviewed. No recent surgical history. SOCIAL HISTORY: She is a nonsmoker. No heavy alcohol use. FAMILY HISTORY: No pertinent family history. REVIEW OF SYSTEMS: A 14-point review of systems was conducted and negative except as positive for anxiety, gait difficulty, ecchymosis around the left eye. PHYSICAL EXAMINATION: VITAL SIGNS: Blood pressure 170/98, pulse is 96, respiratory rate 16, temperature is 36.9 degrees Celsius, oxygen saturation 98% on room air. GENERAL: On physical examination, patient appears normally developed and appears stated age. She is in no distress. HEENT: Her eyes are midline. Normal conjunctivae. Her head is normocephalic and atraumatic. NECK: Supple. LUNGS: Normal respiratory effort. CARDIAC: Pulses are intact. ABDOMEN: Nontender and nondistended. SKIN: There is bruising around the left eye, no skin rash. PSYCHOLOGICAL: She has a regular rate and normal affect for psychological exam. NEUROLOGIC: She is awake and alert. She is oriented to person and place. She speaks Joseluis. Pupils are symmetric. Extraocular muscles are intact. Facial sensation is intact. No facial asymmetry. Intact hearing. Palate is symmetric. Good shoulder shrug. Tongue is midline. Gait evaluation, deferred. She has no tremor, no ataxia with [id number] testing. Sensation is intact to light touch. Muscle tone is normal. Muscle exam 5/5. Reflexes showed negative Jimenez sign, no ankle clonus. Gait evaluation as noted earlier was deferred. DIAGNOSTIC TESTING AND LABORATORY VALUES: WBC 10.93, hemoglobin 12.9, platelet count is 232. INR is 1.0. Sodium is 139, potassium 3.5, chloride 107, carbon dioxide 25, BUN is 17, creatinine 0.88. Hemoglobin A1c is 6.5, calcium is 9.1, magnesium is 2.3, AST is 10, ALT is 18. Troponin is negative. LDL is 58, HDL is 54. Urinalysis showed 2+ leukocyte esterase, 10-30 WBCs, 1+ bacteria. Urine culture is pending. Head CT and head and neck CTA showed no significant stenosis, occlusion or aneurysm. It was unremarkable CT angiogram of the neck and multinodular goiter was noted. MRI of the brain showed no acute intracranial findings. No foci of restricted diffusion to suggest acute infarct. No intracranial hemorrhage, moderate atrophy is noted. No intracranial masses are identified. There is an old 5 mm lacunar infarct within the right thalamus. White matter changes favor small vessel ischemic disease. ASSESSMENT: A 80-year-old woman with a history of type 2 diabetes, hypertension, hyperlipidemia, and prior small vessel ischemic stroke on aspirin, presenting with transient ataxia or gait difficulty. Hospital workup was thorough without any evidence of acute ischemic stroke including no large vessel occlusion or high-grade stenosis. Transient ataxia or gait difficulty in isolation is unlikely related to cerebrovascular disease. I do not believe this patient had a stroke or TIA. Differential diagnosis certainly includes hypertensive urgency. RECOMMENDATION: Recommend gradual reduction of blood pressures with goal of normotension including systolic blood pressure less than 140, diastolic blood pressure less than 90. Recommend to continue home aspirin and home Lipitor. Would recommend physical therapy and occupational therapy for any rehabilitation needs. The patient may benefit from outpatient physical therapy. If intermittent gait difficulty persists, would consider Neurology followup as an outpatient, otherwise, the patient can follow up with her PCP. Please contact me with any additional questions or concerns. Job ID: [id number] JUDITH
[2021-08-03] MEDS ORDERED: amLODIPine BESYLATE 5 MG TAB PO ONE (13:30)
--- NOTE | 2021-08-03 15:01 | Hospitalist Progress Note ---
Date of Service August 03, 2021 Assessment & Plan (1) Gait disturbance: Plan: Due to risk factors and previous CVA, there was concern for TIA/CVA CT head show 6 mm hypodensity in the thalamus which represent age-indeterminate lacunar infarct. MRI brain did not show any acute abnormalities. Low likelihood for CVA TIA. PT/OT evaluation noted. Will require walker and home PT. park manager notified. A1c 6.5 (2) Hypertensive urgency: Plan: -BP elevated earlier today at 219/90 with dizziness which is now resolved, patient reported taking atenolol-chlorthalidone half tablet versus 1 tablet on her med rec in [place]. Blood pressure still poorly controlled. Continue Atenolol 50 mg and chlorthalidone 25 mg. Amlodipine 5 mg added. Monitor blood pressure (3) Hyperlipidemia: Plan: Continue home atorvastatin (4) Obesity (BMI 30.0-34.9): Plan: BMI 31.7 Lifestyle modification DVT ppx: - teds, scds CODE: DNR/DNI SonDesire, can be reached at [phone] if needed for questions and updates. Admission and Anticipated Discharge Date Admission Date: August 02, 2021 Subjective 80-year-old female, [place] language of [place], with PMHx of multinodular goiter, CVA 15 years ago who presents with gait abnormality /instability and fall 10 days ago. Being managed for hypertensive urgency and admitted for possible CVA work up Patient seen and examined Communicated using special police officer (orthodox) Denied any new complaints Review of Systems Review of Systems: Other ROS negative Physical Exam Constitutional: + well hydrated; no acute distress Eyes: PERRL, conjunctivae normal, anicteric sclerae ENMT: external ear and nose normal, oropharynx normal Respiratory: normal respiratory effort, lungs clear to auscultation Cardiovascular: Rate/Rhythm: regular rate and regular rhythm S1 S2 Gastrointestinal (Abdomen): normal bowel sounds, soft, nontender, no hepatosplenomegaly Musculoskeletal: no cyanosis or clubbing, extremities motor strength 5/5 Neurologic: PERRL, EOMI, accommodation nl, no face palsy, no dysarthria Psychiatric: A+Ox3, euthymic affect Results & Data Results & Data ([facility]) Vital Signs (Past 12 Hours) Vital Signs Temp Pulse Pulse Resp BP BP Pulse Ox 08/03/21 11:44 37.0 C 66 16 181/84 H 96 08/03/21 09:52 96 H 08/03/21 08:00 36.9 C 88 16 170/98 H 98 08/03/21 03:42 36.6 C 99 H 20 174/93 H 97 Laboratory Results Abnormal lab results 08/02/21 08/03/21 08/03/21 Range/Units 14:43 04:31 04:31 WBC 10.93 H (4.8-10.8) K/uL RDW Coeff of Jennifer 14.8 H (11.5-14.5) % Neut # (Auto) 7.84 H (1.4-6.5) K/uL Winkler # (Auto) 0.97 H (0.11-0.59) K/uL Glucose 134 H (70-99) mg/dl Hemoglobin A1c (4.5-5.6) % Urine pH 8.0 H (4.5-7.5) Ur Leukocyte Esterase 2+ H (Negative) Urine WBC (Auto) 10-30 H (0-5) /hpf U Epithel Cells (Auto) 10-20 H (0-5) /lpf Urine Bacteria (Auto) 1+ H (Negative) 08/03/21 Range/Units 04:31 WBC (4.8-10.8) K/uL RDW Coeff of Jennifer (11.5-14.5) % Neut # (Auto) (1.4-6.5) K/uL Winkler # (Auto) (0.11-0.59) K/uL Glucose (70-99) mg/dl Hemoglobin A1c 6.5 H (4.5-5.6) % Urine pH (4.5-7.5) Ur Leukocyte Esterase (Negative) Urine WBC (Auto) (0-5) /hpf U Epithel Cells (Auto) (0-5) /lpf Urine Bacteria (Auto) (Negative)
[2021-08-03] MEDS ORDERED: STROKE PATIENT DISCHARGE STA (15:18)
--- NOTE | 2021-08-03 15:19 | Discharge Summary ---
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 Approximately 1 week ago patient was outside for a walk in a park near her home. All of a sudden she became unbalanced and fell, striking her face causing bruising around her left eye, however did not seek medical attention at that time. Today at approximately 9 AM she redeveloped gait instability during a walk again but did not fall, no loss of balance. She called her PCP this morning and noted chest pressure/heaviness. Currently she denies chest complaints, dizziness, or shortness of breath. Her son, Daniel, who is present at bedside noting elevated blood pressure, and PCP instructed them to come to the ER for work-up. Her son acts as consumer experience consultant during our visit and all their questions and concerns were addressed. Here is the ER she was stroke alert. No acute findings seen on CT. Admission Exam Per Admitting Provider General: awake, alert, no apparent distress Head: Normocephalic, + ecchymosis surrounding the left eye orbit , no icteric involvement ENT: PERRL, EOMI, no pharyngeal exudate, mucous membranes moist Chest: Clear to auscultation, on room air, no adventitious breath sounds Cardiac: Regular rate and rhythm, no murmur, no JVD, normal peripheral pulses, good capillary refill Abdominal: NABS x 4 quadrants, soft, nondistended, nontender to palpation, no rebound or guarding Extremities: Normal inspection, no peripheral edema or erythema, calfs nontender to palpation Psych: Normal mood and affect Neuro: AAO x 3, strength intact bilaterally and rated 5/5, slight weakness compared in LLE to the RLE with hip flexor strength testing. No motor deficits, cerebellar movements are intact, can perform heel to baker testing without difficulty, speech is clear, no peripheral sensory deficits Principal Diagnosis Hypertension urgency Gait abnormality Discharge Exam Constitutional + well hydrated; no acute distress Eyes PERRL, conjunctivae normal, anicteric sclerae ENMT external ear and nose normal, oropharynx normal Respiratory normal respiratory effort, lungs clear to auscultation Cardiovascular Rate/Rhythm: regular rate and regular rhythm S1 S2 Gastrointestinal (Abdomen) normal bowel sounds, soft, nontender, no hepatosplenomegaly Musculoskeletal no cyanosis or clubbing, extremities motor strength 5/5 Neurologic PERRL, EOMI, accommodation nl, no face palsy, no dysarthria Psychiatric A+Ox3, euthymic affect Discharge Data Allergies Allergy/AdvReac Type Severity Reaction Status Date / Time No Known Allergies Allergy Unverified 08/02/21 18:05 Consultations 08/02/21 14:33 ED Decision to Admit Stat 08/02/21 16:47 Consult Neurology Routine Ordered Studies 08/02/21 12:26 CT angio head w con Stat There is again noted a 6 mm hypodense focus within the right thalamus. This is better appreciated on the same day head CT. Visualized intracranial internal carotid arteries, distal vertebral arteries, and basilar artery are widely patent. There is no significant stenosis, occlusion, or aneurysm seen within the bilateral ACAs, MCAs, or cake cutter machine. The major dural venous sinuses are patent. Moderate calcified plaque within the bilateral carotid siphons. IMPRESSION: No significant stenosis, occlusion, or aneurysm within the [place] of [place] CT angio neck with con Stat Thoracic aorta: Visualized portions of the thoracic aorta are normal in caliber. The aortic arch demonstrates standard 3-vessel anatomy. Right carotid arterial system: The right common carotid artery is widely patent, as are the right internal and external carotid arteries. Mild calcified plaque is seen in the carotid bulb. Left carotid arterial system: The left common carotid artery is widely patent, as are the left internal and external carotid arteries. Calcified plaque is noted in the carotid bulb. Vertebral arteries: The vertebral arteries are widely patent bilaterally and codominant. Subclavian arteries: Widely patent bilaterally. Intracranial vasculature: The visualized intracranial vessels at the skull base are patent. See report of CT angiogram of the brain performed concurrently for detailed intracranial findings. Jugular veins: Widely patent bilaterally. Brain parenchyma: The visualized brain parenchyma the skull base is within normal limits. Lung apices: Partially visualized upper lobe lung parenchyma appears clear. Soft tissues: The visualized pharyngeal soft tissues are normal in appearance noting angiographic phase technique. The oropharyngeal airway appears widely patent. The thyroid gland is enlarged, heterogeneous, and infiltrated by numerous low-attenuation nodules. These measure up to 3.5 cm. The thyroid gland extends into the mediastinum and causes rightward deviation of the trachea. The salivary glands are normal in appearance. No cervical lymphadenopathy is seen. Skeletal structures: The skeletal structures are osteopenic. The visualized calvarium at the skull base appears intact. The imaged cervical spine is maintained noting mild multilevel spondylosis. No lytic or blastic lesion is seen. Sinuses and mastoids: The visualized paranasal sinuses are clear. The mastoid air cells are well pneumatized. IMPRESSION: 1. Unremarkable CT angiogram of the neck. 2. Multinodular goiter. CT head/brain wo con Stat No acute intracranial hemorrhage, midline shift or mass effect is present. In white matter hypodensity suggests small vessel disease. A 6 mm hypodensity within the right thalamus is noted. The ventricular system is unremarkable. The basal cisterns are patent. No extra-axial collections are present. There are no findings to suggest acute dural sinus thrombosis or acute territorial infarct. No significant calvarial abnormalities are present. Visualized portions of the sinuses and mastoid air cells are clear. IMPRESSION: 1. No acute intracranial hemorrhage or mass effect. 2. 6 mm hypodensity within the thalamus. This represents an age indeterminate lacunar infarct. 08/02/21 16:47 MR brain wo con Routine There are no foci of restricted diffusion to suggest acute infarct. No acute intracranial hemorrhage, midline shift or mass effect is present. Basal cisterns are patent. There are no extra axial collections. Moderate atrophy is noted. This accounts for mild ventricular dilatation. No intracranial masses are identified on this unenhanced exam. There is an old 5 mm lacunar infarct within the right thalamus. White matter T2 hyperintense foci favor small vessel disease. Calvarial signal is normal. IMPRESSION: No acute intracranial findings. Hospital Course (1) Gait disturbance: Due to risk factors and previous CVA, there was concern for TIA/CVA CT head show 6 mm hypodensity in the thalamus which represent age-indeterminate lacunar infarct. MRI brain did not show any acute abnormalities. Low likelihood for CVA or TIA. PT/OT evaluation noted. Will require walker and home PT. process manager arranged for home PT and walker will be delivered tomorrow. Son agreed to assist patient until walker arrives A1c 6.5 (2) Hypertensive urgency: -BP elevated earlier today at 219/90 with dizziness which is now resolved, patient reported taking half tablet of atenolol-chlorthalidone 50-25mg versus 1 tablet on her med list on [facility]. Son confirmed patient had been told to take only half tablet daily Dose was increased to full tab of atenolol-chlorthalidone 50-25mg inpatient She also got 2 doses of amlodipine while inpatient BP improved this afternoon Discharged on atenol-chlorthalidone 50-25mg one full tablet daily Advised to keep a BP log until follow up with PCP All information communicated to son as well. (3) Hyperlipidemia: Continue home atorvastatin (4) Obesity (BMI 30.0-34.9): BMI 31.7 Lifestyle modification Total Time Total Time Spent Total Time Spent (In Minutes): 60 Total Time Includes: Examination of the Patient, Discharge Planning and Medication Reconciliation Discharge Plan Discharge Items Patient Disposition: Home - Home Health Services Reason For Visit: HYPERTENSION Discharge Diagnosis: Hypertension urgency Gait abnormality Activity: Resume your previous activity Non-emergency contact: Primary Care Provider Call non-emergency contact if: you have any medication questions Follow-up/Referrals: Komal Salazar MD [Primary Care Provider] - Diet: Heart Healthy Addtl Attending Provider Instructions: Mrs Gonzalez. You came to the hospital due to gait abnormality. You also had severely elevated blood pressure. You were evaluated and was not found to have a stroke Please take one full tablet of your blood pressure medicine (atenolol-chlor thalidone 50-25) daily. Please ensure follow up with your Primary Doctor within 1 week. Keep a log of your home blood pressure. Please use the walker when you walk It was a pleasure taking care of you Pending Studies at Discharge: No Stand-Alone Forms: [facility] Guided Interventions, Smoking Cessation Medications and DC Order Prescriptions: New atenolol-chlorthalidone 50-25 mg tablet 1 tab PO DAILY Qty: 30 RF: 0 Continued atorvastatin 10 mg tablet 10 mg PO DAILY RF: 0 aspirin 81 mg Tablet 81 mg PO DAILY RF: 0 Discontinued atenolol-chlorthalidone 50-25 mg tablet 0.5 tab PO DAILY RF: 0 Discharge Orders: Discharge Order (Routine); Ordered 08/03/21 Ordered By: Amy Hackett/Other Patient Handouts: A1C, High Blood Sugar (Hyperglycemia), Hypoglycemia (Low Blood Sugar), Managing Type 2 Diabetes, Exercise to Manage Your Blood Sugar, Diabetes: Meal Planning Admission Data Admit Date/Time: 08/02/21 13:44 Attending Provider: Amy [place] I. Admit Provider: Steff Black Primary Care Provider: Komal Salazar Other Providers: Amy [place] I. ; Ash Fuentes Other Interventions: Discharge Summary Assessment (RN) Last Done: 08/03/21 15:26
[2021-08-04] MEDS ORDERED: amLODIPine BESYLATE 5 MG TAB PO SCH (09:00)
== END 2021-08-03 17:26 | disposition home health service (06) ==
LOC: 2S 11:08 → ED 11:08 → 2S 16:28

== ENCOUNTER 2023-02-28 12:17 | Inpatient (IN) ==
[2023-02-28] MEDS ORDERED: ALBUT/IPRATROP 3MG/0.5MG NEB 3 ML VIAL INH STA (12:39)
[2023-02-28] MEDS ORDERED: methylPREDNISolone 125 MG/2 ML VIAL IV STA (12:39)
[2023-02-28] MEDS ORDERED: CEFEPIME 2,000 MG/20 ML VIAL IV STA (12:39)
[2023-02-28] MEDS ORDERED: SODIUM CHLORIDE 0.9% 500 ML IV STA (12:39)
--- NOTE | 2023-02-28 12:45 | Emergency Department Note ---
Impression & Plan Weakness, SOB (shortness of breath), Parainfluenza infection, Failure of outpatient treatment, Acute hyponatremia ED Provider Note NAME: ARMANDO HUFFMAN AGE: 82 SEX: F : 1940 ARRIVES VIA: Ambulance INFORMANT: [Patient][ems, son] ED PROVIDER(S): [Stefano Murdock MD] CHIEF COMPLAINT: Short of breath HISTORY OF PRESENT ILLNESS: The patient is an 82-year-old female who has had respiratory symptoms for about 5 or 6 days. She has had a cough and congestion. She has been on prednisone and Augmentin as well as Flonase for the last 5 days. Despite this, last night, she had a fever, this morning, she was more short of breath and weak. As per EMS, the patient's blood sugar was 233. In addition to the above, the patient also complains of right upper back pain. The son believes it is from all of her coughing. She has no known coronary disease. The patient's son was sick a week ago with a respiratory illness, he thinks he may have passed it to his mother. His mother does live with him. Of note, the patient speaks Marathi. We did attempt translation via the [employer] ignacio but this was not very successful. The son was able to translate for us without difficulty. PMHx/PSHx: See Below SOCIAL HISTORY: See Below. PHYSICAL EXAM: GENERAL: Patient is in no acute distress. HEENT: No acute trauma, normocephalic atraumatic, mucous membranes moist, no nasal congestion. NECK: No stridor, no adenopathy, no meningismus, trachea is midline. LUNGS: No respiratory distress, breath sounds are diminished bilaterally with some wheezing and a few crackles, mostly on the right. HEART: Without murmurs gallops or rubs, regular rate and rhythm. Heart tones are distant. ABDOMEN: Soft, nontender, bowel sounds positive, no peritonitis. EXTREMITIES: No cyanosis or edema, full range of motion of all the joints without pain or difficulty, no signs for acute trauma. NEUROLOGIC: Oriented x 3, no acute motor or sensory deficits, no focal weakness. SKIN: No rash, no jaundice, no diaphoresis. DIFFERENTIAL DIAGNOSIS: Pneumonia, bronchitis, failed outpatient management, COVID-19, influenza, viral illness, anemia, electrolyte imbalance, bacteremia/sepsis, among others. EMERGENCY DEPARTMENT COURSE/PROCEDURES: Prior/Outside records reviewed: Previous discharge summary. ECG per my interpretation: Indication was shortness of breath. The ECG shows a sinus bradycardia with some baseline artifact. The rate is 58. There is no ST elevation, no PVCs. The QTc is 459. Continuous Cardiac Monitoring per my interpretation: An order was placed for continuous cardiac monitoring. The monitor shows a rate of 62 with normal sinus rhythm. Critical Care Note: I have personally spent 49 minutes of critical care time in the direct management of this patient. This includes bedside care, interpretation of diagnostic studies, and testing, discussion with consultants, patient, and family members, and other required patient management activities. This 49 minutes is in excess of all separately billable procedures. MEDICAL DECISION MAKING: There is a slight leukocytosis, this could be from infection or her recent steroid use. Hemoglobin was normal at 12.7. There was a normal platelet count. No coagulopathy. Lactic acid level was not not elevated making severe sepsis less likely. There were some subtle liver enzyme elevations. ECG shows a sinus bradycardia, no obvious ischemia. Cardiac enzyme testing x1 is not consistent with acute cardiac injury. Urinalysis shows contamination, no obvious infection. Respiratory bio fire does show findings of parainfluenza 3. Chest film per my review did not show pneumonia, CHF or pneumothorax. On exam, the patient was wheezing, no significant respiratory distress. Patient received 1 L of IV saline, she was given IV Solu-Medrol, IV cefepime, a DuoNeb. The patient presents with wheezing, shortness of breath and weakness. She has worsened despite Augmentin and prednisone as an outpatient. She is in need of a hospital stay given her findings. I did speak with the patient and her son. Case management has been involved. The on-call hospitalist was consulted. DISPOSITION: Patient's presentation and findings warrant a hospital stay. Past Med/Surg History Medical History CVA (cerebral vascular accident) Hyperlipidemia Hypertension Social History Smoking Status: Never smoker Hx Alcohol Use: No Hx Substance Use: No Preferred Language: Marathi Communication Ability: Effective Communication Ability Comment: milady Overton served as certified court interpreter Communication Tools: IPad Sheet [employer] Printer Required: Yes Beliefs That Will Affect Care: Zoroastrianism Zoroastrianism Beliefs: Buddhist and Cultural Cultural Beliefs: Buddhist Current Living Situation: Family How many Children do You have: 2 Feels Safe at Home: Yes Assistive Devices: None Allergies Allergies Allergy/AdvReac Type Severity Reaction Status Date / Time No Known Allergies Allergy Unverified 02/28/23 15:56 Home Meds Home Medications Medication Instructions Recorded Confirmed atorvastatin 10 mg tablet 10 mg PO DAILY 08/02/21 02/28/23 amoxicillin 875 mg-potassium 1 tab PO BID 02/28/23 02/28/23 clavulanate 125 mg tablet ascorbic acid (vitamin C) 100 mg 0 mg PO DAILY 02/28/23 02/28/23 tablet aspirin 81 mg capsule 81 mg PO DAILY 02/28/23 02/28/23 prednisone 20 mg tablet 20 mg PO UD 02/28/23 02/28/23 vitamin B complex 1 tab PO DAILY 02/28/23 02/28/23 Previous Rx's Medication Instructions Recorded atenolol 50 mg-chlorthalidone 25 1 tab PO DAILY #30 tabs 08/03/21 mg tablet Results & Data (ED) Vital Signs Vital Signs - 24 hr 02/28/23 12:31 02/28/23 12:43 02/28/23 12:39 Temperature 36.6 C Temperature Source Axillary Pulse Rate 57 L 58 L 58 L Pulse Rate [Apical] Pulse Rhythm Regular Pulse Rhythm [Apical] Pulse Strength [Apical] Respiratory Rate 20 20 Respiratory Effort / Characteristics Non-Labored Respiratory Depth Normal Respiratory Pattern Regular Blood Pressure 193/89 H Blood Pressure [Left Arm] Blood Pressure Mean 123 Blood Pressure Mean [Left Arm] Blood Pressure Position [Left Arm] Pulse Oximetry 95 95 Oxygen Delivery Method Room Air Room Air Sepsis Recent Fever Within 48 Hours No Sepsis New/Unexplained Change in Mental Status N/A Sepsis Action Taken by Nursing No Action Required 02/28/23 14:05 02/28/23 16:00 02/28/23 17:33 Temperature Temperature Source Pulse Rate 71 Pulse Rate [Apical] 67 64 Pulse Rhythm Pulse Rhythm [Apical] Regular Pulse Strength [Apical] Normal Respiratory Rate 21 18 Respiratory Effort / Characteristics Non-Labored Spontaneous Non-Labored Respiratory Depth Normal Normal Respiratory Pattern Regular Blood Pressure Blood Pressure [Left Arm] 171/63 H 143/54 H Blood Pressure Mean Blood Pressure Mean [Left Arm] 99 83 Blood Pressure Position [Left Arm] Lying Pulse Oximetry 94 94 Oxygen Delivery Method Room Air Room Air Sepsis Recent Fever Within 48 Hours Sepsis New/Unexplained Change in Mental Status Sepsis Action Taken by Prison Medications Current Medication List: was personally reviewed by me Laboratory Data Attestation: I reviewed the patient's lab results. 02/28/23 14:14 02/28/23 14:14 Lab Results 02/28/23 02/28/23 02/28/23 Range/Units 13:00 14:14 14:14 WBC 11.72 H (4.8-10.8) K/ul RBC 4.99 (4.20-5.40) M/uL Hgb 12.7 (12.0-16.0) g/dl Hct 35.8 L (37.0-47.0) % MCV 71.7 L (80.0-100.0) fL MCH 25.5 (25.0-34.0) pg MCHC 35.5 (32.0-36.0) g/dL RDW Std Deviation 33.4 L (36.4-46.3) fL RDW Coeff of Jennifer 13.1 (11.5-14.5) % Plt Count 284 (130-400) K/uL MPV 8.9 L (9.4-12.4) fL Immature Gran % (Auto) 0.9 % Neut % (Auto) 85.1 % Lymph % (Auto) 11.3 % [place] % (Auto) 2.6 % Eos % (Auto) 0.0 % Baso % (Auto) 0.1 % Neut # (Auto) 9.98 H (1.40-6.50) K/uL Lymph # (Auto) 1.32 (1.2-3.4) K/uL [place] # (Auto) 0.31 (0.11-0.59) K/uL Eos # (Auto) 0.00 (0-0.50) K/uL Baso # (Auto) 0.01 (0-0.2) K/uL Immature Gran # (Auto) 0.10 (0.01-0.20) K/uL PT 10.6 (9.0-12.0) Seconds INR 1.0 (0.9-1.1) APTT 29.4 (21.0-31.0) Seconds PTT Ratio 1.1 Sodium (136-145) mmol/L Potassium (3.5-5.1) mmol/L Chloride (98-107) mmol/L Carbon Dioxide (21-32) mmol/L Anion Gap (3-11) BUN (6-23) mg/dl Creatinine (0.6-1.2) mg/dl Est Cr Clr Drug Dosing ml/min Est GFR ( Amer) ml/min Est GFR (Non-Af Amer) ml/min BUN/Creatinine Ratio (10-20) Glucose (70-99(Fasting)) mg/dl Lactate (0.4-2.0) mmol/L Calcium (8.6-10.3) mg/dl Magnesium (1.7-2.4) mg/dl Total Bilirubin (0.2-1.0) mg/dl AST (13-39) U/L ALT (7-52) U/L Alkaline Phosphatase (34-104) U/L Troponin I High Sens (0-14) pg/ml Total Protein (6.0-8.3) gm/dl Albumin (3.4-5.0) gm/dl Globulin (2.5-4.0) gm/dl Albumin/Globulin Ratio (0.9-2) Urine Color Urine Appearance (Clear) Urine pH (4.5-7.5) Ur Specific [place] (1.000-1.030) Urine Protein (Negative) Urine Glucose (UA) (Negative) Urine Ketones (Negative) Urine Blood (Negative) Urine Nitrite (Negative) Urine Bilirubin (Negative) Urine Urobilinogen (Negative) Ur Leukocyte Esterase (Negative) Urine WBC (Auto) (0-5) /hpf Urine RBC (Auto) (0-4) /hpf U Hyaline Cast (Auto) (0-5) /lpf U Epithel Cells (Auto) (0-5) /lpf Urine Bacteria (Auto) (Negative) Adenovirus (PCR) Not Detected (NotDetected) B. pertussis DNA (PCR) Not Detected (NotDetected) B.parapertussis DNA PCR Not Detected (NotDetected) C. pneumoniae DNA (PCR) Not Detected (NotDetected) Coronavirus OC43 (PCR) Not Detected (NotDetected) Coronavirus HKU1 (PCR) Not Detected (NotDetected) Coronavirus 229E (PCR) Not Detected (NotDetected) SARS-CoV-2 (PCR) Not Detected (NotDetected) Coronavirus NL63 (PCR) Not Detected (NotDetected) Human Metapneumovir PCR Not Detected (NotDetected) Influenza Type A (PCR) Not Detected (NotDetected) Influenza Type B (PCR) Not Detected (NotDetected) M. pneumoniae (PCR) Not Detected (NotDetected) Parainfluenza 1 (PCR) Not Detected (NotDetected) Parainfluenza 2 (PCR) Not Detected (NotDetected) Parainfluenza 3 (PCR) DETECTED A* (NotDetected) Parainfluenza 4 (PCR) Not Detected (NotDetected) RSV (PCR) Not Detected (NotDetected) Entero/Rhino (PCR) Not Detected (NotDetected) 02/28/23 02/28/23 02/28/23 Range/Units 14:14 14:14 15:05 WBC (4.8-10.8) K/ul RBC (4.20-5.40) M/uL Hgb (12.0-16.0) g/dl Hct (37.0-47.0) % MCV (80.0-100.0) fL MCH (25.0-34.0) pg MCHC (32.0-36.0) g/dL RDW Std Deviation (36.4-46.3) fL RDW Coeff of Jennifer (11.5-14.5) % Plt Count (130-400) K/uL MPV (9.4-12.4) fL Immature Gran % (Auto) % Neut % (Auto) % Lymph % (Auto) % [place] % (Auto) % Eos % (Auto) % Baso % (Auto) % Neut # (Auto) (1.40-6.50) K/uL Lymph # (Auto) (1.2-3.4) K/uL [place] # (Auto) (0.11-0.59) K/uL Eos # (Auto) (0-0.50) K/uL Baso # (Auto) (0-0.2) K/uL Immature Gran # (Auto) (0.01-0.20) K/uL PT (9.0-12.0) Seconds INR (0.9-1.1) APTT (21.0-31.0) Seconds PTT Ratio Sodium 108 L* (136-145) mmol/L Potassium 3.2 L (3.5-5.1) mmol/L Chloride 70 L (98-107) mmol/L Carbon Dioxide 30 (21-32) mmol/L Anion Gap 8 (3-11) BUN 24 H (6-23) mg/dl Creatinine 0.65 (0.6-1.2) mg/dl Est Cr Clr Drug Dosing 69.1 ml/min Est GFR ( Amer) 96.5 ml/min Est GFR (Non-Af Amer) 83.3 ml/min BUN/Creatinine Ratio 36.9 H (10-20) Glucose 214 H (70-99(Fasting)) mg/dl Lactate 1.4 (0.4-2.0) mmol/L Calcium 8.1 L (8.6-10.3) mg/dl Magnesium 1.7 (1.7-2.4) mg/dl Total Bilirubin 1.5 H (0.2-1.0) mg/dl AST 45 H (13-39) U/L ALT 35 (7-52) U/L Alkaline Phosphatase 87 (34-104) U/L Troponin I High Sens 14.0 (0-14) pg/ml Total Protein 7.5 (6.0-8.3) gm/dl Albumin 3.8 (3.4-5.0) gm/dl Globulin 3.7 (2.5-4.0) gm/dl Albumin/Globulin Ratio 1.0 (0.9-2) Urine Color Yellow Urine Appearance Clear (Clear) Urine pH 7.5 (4.5-7.5) Ur Specific [place] 1.016 (1.000-1.030) Urine Protein Trace H (Negative) Urine Glucose (UA) Trace H (Negative) Urine Ketones Negative (Negative) Urine Blood Negative (Negative) Urine Nitrite Negative (Negative) Urine Bilirubin Negative (Negative) Urine Urobilinogen Negative (Negative) Ur Leukocyte Esterase 2+ H (Negative) Urine WBC (Auto) 1-5 (0-5) /hpf Urine RBC (Auto) 0-4 (0-4) /hpf U Hyaline Cast (Auto) 1-5 (0-5) /lpf U Epithel Cells (Auto) >30 H (0-5) /lpf Urine Bacteria (Auto) Negative (Negative) Adenovirus (PCR) (NotDetected) B. pertussis DNA (PCR) (NotDetected) B.parapertussis DNA PCR (NotDetected) C. pneumoniae DNA (PCR) (NotDetected) Coronavirus OC43 (PCR) (NotDetected) Coronavirus HKU1 (PCR) (NotDetected) Coronavirus 229E (PCR) (NotDetected) SARS-CoV-2 (PCR) (NotDetected) Coronavirus NL63 (PCR) (NotDetected) Human Metapneumovir PCR (NotDetected) Influenza Type A (PCR) (NotDetected) Influenza Type B (PCR) (NotDetected) M. pneumoniae (PCR) (NotDetected) Parainfluenza 1 (PCR) (NotDetected) Parainfluenza 2 (PCR) (NotDetected) Parainfluenza 3 (PCR) (NotDetected) Parainfluenza 4 (PCR) (NotDetected) RSV (PCR) (NotDetected) Entero/Rhino (PCR) (NotDetected) Administered Medications Discontinued Medications Albuterol (Albut/Ipratrop 3mg/0.5mg Neb 3 Ml Vial) 3 ml INH NOW STA Stop: 02/28/23 12:40 Last Admin: 02/28/23 13:23 Dose: 3 ml Documented By: KENDY Sodium Chloride (Nss) 500 mls @ 999 mls/hr IV .Q31M STA Stop: 02/28/23 13:09 Last Infusion: 02/28/23 14:23 Dose: 0 mls/hr Documented By: Admin: 02/28/23 13:23 Dose: 999 mls/hr Documented By: KENDY Cefepime HCl (Maxipime) 2,000 mg in 20 mls @ 5 mls/min IV NOW STA; Protocol Stop: 02/28/23 12:42 Last Admin: 02/28/23 14:51 Dose: 5 mls/min Documented By: MILES Sodium Chloride (Nss 1000ml) 500 mls @ 999 mls/hr IV .Q31M ONE Stop: 02/28/23 15:23 Last Infusion: 02/28/23 16:00 Dose: 0 mls/hr Documented By: Admin: 02/28/23 15:09 Dose: 999 mls/hr Documented By: JV Methylprednisolone (Methylprednisolone 125 Mg/2 Ml Vial) 60 mg IV NOW STA Stop: 02/28/23 12:40 Last Admin: 02/28/23 13:23 Dose: 60 mg Documented By: Imaging Data Radiologist's Impression: Chest X-Ray 02/28/23 12:39 XR chest 1V portable CLINICAL HISTORY: Dyspnea TECHNIQUE: Single frontal radiograph of the chest was obtained. Comparison: None available at the time of this dictation. FINDINGS: No lines and tubes are seen. Cardiomegaly is noted. The aortic arch is calcified. The lungs are clear. No evidence of pleural effusion or pneumothorax. IMPRESSION: No acute chest disease. Cardiomegaly is noted. No evidence of pneumonia. ACT 112: Negative or not required by law. Electronically signed by: Antonio Carlos M.D. 02/28/2023 12:55 PM Discharge Plan Visit Data Chief Complaint: Illness Stated Complaint: ILLNESS, WEAKNESS, COUGH ED Provider: Stefano Murdock Discharge Problem: Weakness, SOB (shortness of breath), Parainfluenza infection, Failure of outpatient treatment, Acute hyponatremia Patient Disposition: Admitted As Inpatient Condition: Fair Forms Stand Alone Forms: My [facility] Prescriptions Prescriptions: No Action atorvastatin 10 mg tablet 10 mg PO DAILY atenolol-chlorthalidone 50-25 mg tablet 1 tab PO DAILY Qty: 30 0RF prednisone 20 mg tablet 20 mg PO UD Rx Instructions: BEGIN 02/24/23 X 5 DAYS. LAST DOSE 02/28/23 IN AM. amoxicillin-pot clavulanate 875-125 mg tablet 1 tab PO BID Rx Instructions: BEGIN 02/25/23 X 10 DAYS. vitamin B complex Tablet 1 tab PO DAILY ascorbic acid (vitamin C) 100 mg Tablet 0 mg PO DAILY aspirin 81 mg Capsule 81 mg PO DAILY Referrals Referrals: Komal Salazar MD [Primary Care Provider] -
--- NOTE | 2023-02-28 12:57 | XRay Report ---
XR chest 1V portable CLINICAL HISTORY: Dyspnea TECHNIQUE: Single frontal radiograph of the chest was obtained. Comparison: None available at the time of this dictation. FINDINGS: No lines and tubes are seen. Cardiomegaly is noted. The aortic arch is calcified. The lungs are clear . No evidence of pleural effusion or pneumothorax. IMPRESSION: No acute chest disease. Cardiomegaly is noted. No evidence of pneumonia. ACT 112: Negative or not required by law. Electronically signed by: Antonio Carlos M.D. 02/28/2023 12:55 PM
[2023-02-28 14:23] LABS: Adenovirus PCR Not Detected (NotDetected); Bordetella parapertussis PCR Not Detected (NotDetected); Bordetella pertussis PCR Not Detected (NotDetected); Chlamydia pneumoniae PCR Not Detected (NotDetected); Coronavirus 229E PCR Not Detected (NotDetected); Coronavirus CoV-2 (COVID19)PCR Not Detected (NotDetected); Coronavirus HKU1 PCR Not Detected (NotDetected); Coronavirus NL63 PCR Not Detected (NotDetected); Coronavirus OC43PCR Not Detected (NotDetected); Human Metapneumovirus PCR Not Detected (NotDetected); Influenza A PCR Not Detected (NotDetected); Influenza B PCR Not Detected (NotDetected); Mycoplasma pneumoniae PCR Not Detected (NotDetected); Parainfluenza Virus 1 PCR Not Detected (NotDetected); Parainfluenza Virus 2 PCR Not Detected (NotDetected); Parainfluenza Virus 4 PCR Not Detected (NotDetected); Respiratory Syncytial VirusPCR Not Detected (NotDetected); Rhinovirus/Enterovirus PCR Not Detected (NotDetected)
[2023-02-28 14:37] LABS: Parainfluenza Virus 3 PCR DETECTED (NotDetected)
[2023-02-28] MEDS ORDERED: SODIUM CHLORIDE 0.9% 1000ML 500 ML IV ONE ×2 (14:53→21:33)
[2023-02-28 14:56] LABS: Albumin Level 3.8 gm/dl (3.4-5.0); BUN Creatinine Ratio 36.9 (10-20); Bilirubin,Total 1.5 mg/dl (0.2-1.0); Calcium 8.1 mg/dl (8.6-10.3); Creatinine Clr Calc Pharmacy 69.1 ml/min; Est GFR (African American) 96.5 ml/min; Est GFR (Non-African American) 83.3 ml/min; Globulin 3.7 gm/dl (2.5-4.0); Magnesium 1.7 mg/dl (1.7-2.4); Potassium 3.2 mmol/L (3.5-5.1); Total Protein 7.5 gm/dl (6.0-8.3)
[2023-02-28 14:58] LABS: Partial Thromboplastin Ratio 1.1; Partial Thromboplastin Time 29.4 Seconds (21.0-31.0); Prothrombin Time 10.6 Seconds (9.0-12.0)
[2023-02-28 15:41] LABS: Appearance Urine Clear (Clear); Bacteria Urine Automated Negative (Negative); Bilirubin Urine Negative (Negative); Blood Urine Negative (Negative); Color Urine Yellow; Epithelial Cell Urine Auto >30 /lpf (0-5); Glucose Urine UA Trace (Negative); Ketones Urine Negative (Negative); Leukocyte Esterase Urine 2+ (Negative); Nitrite Urine Negative (Negative); RBC Urine Automated 0-4 /hpf (0-4); Specific Gravity Urine 1.016 (1.000-1.030); Urobilinogen Urine Negative (Negative); pH Urine 7.5 (4.5-7.5)
[2023-02-28 15:44] LABS: Protein Urine Trace (Negative)
[2023-02-28 16:03] LABS: Basophils # (auto) 0.01 K/uL (0-0.2); Basophils % (auto) 0.1 %; Hematocrit (blood only) 35.8 % (37.0-47.0); Hemoglobin 12.7 g/dl (12.0-16.0); Immature Granulocytes % (auto) 0.9 %; Lymphocytes # (auto) 1.32 K/uL (1.2-3.4); Lymphocytes % (auto) 11.3 %; Mean Corpuscular Hemoglobin 25.5 pg (25.0-34.0); Mean Corpuscular Hgb Conc 35.5 g/dL (32.0-36.0); Mean Corpuscular Volume 71.7 fL (80.0-100.0); Mean Platelet Volume 8.9 fL (9.4-12.4); Monocytes # (auto) 0.31 K/uL (0.11-0.59); Monocytes % (auto) 2.6 %; Neutrophils # (auto) 9.98 K/uL (1.40-6.50); Neutrophils % (auto) 85.1 %; Platelet Count 284 K/uL (130-400); RDW Coefficient of Variation 13.1 % (11.5-14.5); RDW Standard Deviation 33.4 fL (36.4-46.3); Red Blood Count 4.99 M/uL (4.20-5.40); White Blood Count 11.72 K/ul (4.8-10.8)
--- NOTE | 2023-02-28 17:32 | History & Physical Report ---
Date of Service February 28, 2023 Assessment & Plan (1) Hyponatremia: Plan: This is an 82-year-old female with PMH of history of CVA with some residual left-sided weakness, hyperlipidemia, obesity SOB and cough x 5 days and was found to have severe hyponatremia on admission. Initial sodium 108 (corrects to 111 when accounting for hyperglycemia) Given 1L NSS in ED with repeat sodium of 110 No mentation changes. Osm labwork pending Diuretic-induced - holding chlorthalidone (dose was increased in Oct 2021 due to uncontrolled HTN and Na was 138 at that time, so hyponatremia likely a chronic process) Discussed in depth with Dr. Esparza of nephrology, who recommends * checking BMP Q2H * Goal correction of Na to 114 (no more than 6meq) by 1400 tomorrow afternoon * Start D5W at 100ml/hr now * If Na increases more than 3 mEq in 2 hr interval, to start desmopressin 4 mcg Q6H * Replace potassium with 40 meq orally Case discussed with scallop cutter machine Dr. Armenta as well as Ananth CORDOVA, who will continue management (2) Viral respiratory infection: Plan: Parainfluenza 3 detected on viral PCR. No indication to continue Augmentin prescribed in outpatient setting (completed 5 days), completed 5 day prednisone taper Supportive care (3) Hypertension: Plan: Holding atenolol-chlorthalidone given hyponatremia (4) Hyperlipidemia: Plan: Continue statin (5) History of CVA (cerebrovascular accident): Plan: Remote history of CVA with mild left sided weakness. Continue aspirin, statin DVT Ppx: SQ lovenox Code status: FULL PCP: My Dispo: Admitted to ICU Patient seen in collaboration with Dr. Gómez. Please see addendum. I spent a total of 80 minutes coordinating, documenting, and providing care for this patient excluding time spent in the performance of separately billed services. History of Present Illness Chief Complaint: Respiratory symptoms Primary Care Provider: Komal Salazar MD This is an 82-year-old female with PMH of history of CVA with some residual left-sided weakness, hyperlipidemia, obesity SOB and cough x 5 days. History obtained by son at bedside, who she lives with. Son served as edge cutter of [employer] as preference due to limitations with interpretive service. Seen by PCP earlier this week due to respiratory symptoms and was started on Augmentin and 5 day prednisone taper she finished earlier today. Yesterday afternoon, patient felt comfortable and looked more energetic per son but then appeared more weak and swollen this morning and was directed to ED for further evaluation. Had some confusion this morning and was asking to be reminded of something they had discussed previously. But otherwise seems to be mentating close to baseline. Reported a subjective fever last night but has since resolved. No nausea, vomiting, abdominal pain, dysuria, diarrhea or constipation. Decreased urination and constipated for past few days but was able to urinate in ED without issue. Last took medications atenolol-chlorthalidone yesterday morning. Of note, patient increased diuretic dose in October 2021 due to elevated pressure and sodium was 138 at that time. Have not been able to find any more recent lab work. Allergies Allergy/AdvReac Type Severity Reaction Status Date / Time No Known Allergies Allergy Unverified 02/28/23 15:56 Home Medications Medication Instructions Recorded Confirmed Type atorvastatin 10 mg tablet 10 mg PO DAILY 08/02/21 02/28/23 History atenolol 50 mg-chlorthalidone 25 1 tab PO DAILY #30 tabs 08/03/21 02/28/23 Rx mg tablet amoxicillin 875 mg-potassium 1 tab PO BID 02/28/23 02/28/23 History clavulanate 125 mg tablet ascorbic acid (vitamin C) 100 mg 0 mg PO DAILY 02/28/23 02/28/23 History tablet aspirin 81 mg capsule 81 mg PO DAILY 02/28/23 02/28/23 History prednisone 20 mg tablet 20 mg PO UD 02/28/23 02/28/23 History vitamin B complex 1 tab PO DAILY 02/28/23 02/28/23 History Past Med/Surg History Medical History CVA (cerebral vascular accident) History of CVA (cerebrovascular accident) Hyperlipidemia Hypertension Surgical History H/O hernia repair Family History Other Hypertension Social History Smoking Status: Never smoker Hx Alcohol Use: No Hx Substance Use: No Preferred Language: Marathi Communication Ability: Effective Communication Ability Comment: milady Overton served as edge cutter Communication Tools: IPad [place]ogs[place] Stripper Required: Yes Beliefs That Will Affect Care: Mu-Ism Mu-Ism Beliefs: Oriental Orthodox and Cultural Cultural Beliefs: Oriental Orthodox Current Living Situation: Family How many Children do You have: 2 Feels Safe at Home: Yes Assistive Devices: None Review of Systems Review of Systems: At least ten systems reviewed and negative except as noted in the HPI. Physical Exam Physical Exam: Please see Dr. Gómez's addendum for physical exam. Results & Data Results & Data Vital Signs (Past 12 Hours) Vital Signs Temp Pulse Pulse Resp BP BP Pulse Ox 02/28/23 16:00 64 18 143/54 H 94 02/28/23 14:05 67 21 171/63 H 94 02/28/23 12:39 58 L 20 95 02/28/23 12:43 36.6 C 58 L 20 193/89 H 95 02/28/23 12:31 57 L O2 Del Method 02/28/23 16:00 Room Air 02/28/23 14:05 Room Air 02/28/23 12:39 Room Air 02/28/23 12:43 Room Air 02/28/23 12:31 Laboratory Results Short CBC 02/28/23 Range/Units 14:14 WBC 11.72 H (4.8-10.8) K/ul Hgb 12.7 (12.0-16.0) g/dl Hct 35.8 L (37.0-47.0) % Plt Count 284 (130-400) K/uL BMP 02/28/23 02/28/23 14:14 17:12 Sodium 108 L* 110 L* Potassium 3.2 L 3.0 L Chloride 70 L 74 L Carbon Dioxide 30 28 BUN 24 H 22 Creatinine 0.65 0.63 Glucose 214 H 236 H Calcium 8.1 L 7.4 L Liver Function 02/28/23 Range/Units 14:14 Total Bilirubin 1.5 H (0.2-1.0) mg/dl AST 45 H (13-39) U/L ALT 35 (7-52) U/L Alkaline Phosphatase 87 (34-104) U/L Albumin 3.8 (3.4-5.0) gm/dl Urine 02/28/23 Range/Units 15:05 Urine Color Yellow Urine Appearance Clear (Clear) Urine pH 7.5 (4.5-7.5) Ur Specific [place] 1.016 (1.000-1.030) Urine Protein Trace H (Negative) Urine Glucose (UA) Trace H (Negative) Diagnostic Findings Chest X-Ray 02/28/23 12:39 XR chest 1V portable CLINICAL HISTORY: Dyspnea TECHNIQUE: Single frontal radiograph of the chest was obtained. Comparison: None available at the time of this dictation. FINDINGS: No lines and tubes are seen. Cardiomegaly is noted. The aortic arch is calcified. The lungs are clear. No evidence of pleural effusion or pneumothorax. IMPRESSION: No acute chest disease. Cardiomegaly is noted. No evidence of pneumonia. ACT 112: Negative or not required by law. Electronically signed by: Antonio Carlos M.D. 02/28/2023 12:55 PM Supervising Physician Co-Signing Physician Notes Pt is a 82 y/o F with hx of HLD, HTN, CVA (no residual weakness) admitted for severe hyponatremia. -pt speaks Marathi therefore pts son helped with history taking PE: NAD, well developed HEENT: EOMI, PERRLA Lungs: CTA, no wheezing or crackles Cardiac: normal S1/S2, no murmur Abd: obese abd, ND, NT MSK: trace b/l LE pitting edema Psych: AAOx3 (but stated that the year is 2021), normal affect A/P: Severe HypoNa+: -normal mental status - VSS overall normal except for slight elevated BP -Discussed the case with Nephrology (detailed recommendation in above a/p) -due to severe hypoNa+ pt is admitted to the ICU Viral URI: -CXR: no acute pneumonia -pt has been taking amoxicillin and prednisone as outpt ----likely the reason for the leukocytosis -lungs CTA and per pt her respiratory symptoms are improving HTN: -pt is on atenolol-chlorthalidone as outpt ---- currently on hold ---- likely need to be changed on discharge Agree with A/P by Ciara Renae PA-C
[2023-02-28 18:00] LABS: BUN Creatinine Ratio 34.9 (10-20); Calcium 7.4 mg/dl (8.6-10.3); Creatinine Clr Calc Pharmacy 71.3 ml/min; Est GFR (African American) 97.5 ml/min; Est GFR (Non-African American) 84.1 ml/min
[2023-02-28] MEDS ORDERED: DEXTROSE 5% 1,000 ML IV SCH (18:15)
[2023-02-28] MEDS ORDERED: PHARMACY GLYCEMIC MGMT CONSULT PRN (18:38)
--- NOTE | 2023-02-28 19:04 | Critical Care Consultation ---
Date of Consultation February 28, 2023 Assessment & Plan (1) Viral respiratory infection: (2) Hyponatremia: (3) History of CVA (cerebrovascular accident): (4) Poorly-controlled hypertension: (5) Obesity (BMI 30.0-34.9): (6) Hyperlipidemia: Plan Reason Critically Ill: 82 YOF with severe asymptomatic hyponatremia. Likely hypovolemic from diuretic hypoosmolar hyponatremia. Neuro - Hx CVA CAM ICU: Negative - Nuerologically intact, alert, oriented - Reports generalized weakness- no focal deficits Cardiac - HTN, HLD - Will hold her diuretics - Continue her Atenolol- add PRN IV dosing if needed - Consider GUY/ARB Respiratory - Parainfluenza 3 - Supportive care - hold on further steroids unless bronchospastic - Albuterol PRN if needed - Continue supportive care GI - No acute needs - regular diet RENAL/LYTES - Severe hypoosmolar hyopnatremia, other electrolyte disturbances - Nephro consulted- discussed recommendations with Gun Fitter- appreciate assistance - As she is asymptomatic this is likely a chronic issue- DDX is diruetic induced/hypovolemia or SIADH component from viral illness - BMP q2 - Serum osmo-242, Spec grav- 1.016, Urine Osmo pending - DDAVP clamp if NA 113-114- goal would be 6mmol in 24 hours- 1400 on 03/01/23 - D5W currently running as NA increased 2mmol in first hour- adjust per NA levels - If NA not increasing or decreases will decrease D5W rate and bolus with 0.9% saline - Free water restrict to 1200ml and overall fluid intake of 1800ml- patient may drink Gatorade/powerade, juice, gingerale - Replete Potassium- this will also bring up her NA levels - No acute needs ENDO - Hyperglycemia without diagnosis of DM - ICU hyperglycemia protocol goal < 180mg/dl - HGB A1C in morning - TSH in am HEME - No acute needs ID - See respiratory above LINES/IV ACCESS - PIV Continue use of these lines DVT PROPHYLAXIS - Lovenox 40mg subq daily, SCDS DISPO- ICU for 24-48 hours until NA stable/improving as she is asymptomatic this is likely chronic I have personally spent 50 minutes of critical care time in the direct management of this patient. This is a life/limb threatening event. This includes time spent evaluating patient, direct bedside care, chart review, placing orders, interpretation of diagnostic studies, discussion with consultants, patient, and family members, as well as other required patient management activities. This time is exclusive of all separately billable procedures, and separate from and in addition to any other critical care service time. Thank you for allowing us to participate in the care of this patient. Please refer to my attending physician's documentation for any further recommendations. 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 Patient speaks Marthi Dialect of rayf. Son at bedside provides majority of information. Overall the patient has been being treated for URI illness for the past week and originally was feeling better, up until yesterday. The patient was restless could not get comfortable as well as complaining of increase in cough and muscle cramps/pain in upper back. Son endorses more fatigue appearing today. She came to the EMD at the request of her PCP for possible electrolyte disturbances as well as URI sx. In the EMD she had routine labs drawn, ECG, CXR, and respiratory bio-fire. She was noted on her BMP to have a NA level of 108, K 3.0, CL of 74 and OSMO of 242 with Glucose 236. Following 500ml Saline in the EMD she is at 110. She was admitted to the Medical Service who contacted nephrology for her hyponatremia. ICU was consulted for monitoring and continuation of plans. In the EMD her bio-fire was positive for parainfluenza 3. She was given steroids for wheeze as well as duoneb. Patient will be admitted to ICU replace Potassium, Sodium correction to goal 114, clamp with DDAVP if correcting to fast. Aliquots of 0.9% saline if dropping or not increasing. Full regular diet, free water restriction. She has been on combination Atenolol/Chlorthalidone combination which has been increased for BP control. Her normal breakfast is a cracker and tea, and she reportedly only drinks tea twice per day and 2-3 liters of free water daily. She continues with her BP medications. Son endorses that she eats well with normal lebanese food and spices otherwise. Denies any diarrhea or any other medications. COVID: NEGATIVE PARAINFLUENZA 3: POSITIVE CONSULTS: NEPHROLOGY CODE: DNR/DNI Allergies Allergy/AdvReac Type Severity Reaction Status Date / Time No Known Allergies Allergy Unverified 02/28/23 15:56 Home Medications Medication Instructions Recorded Confirmed Type atorvastatin 10 mg tablet 10 mg PO DAILY 08/02/21 02/28/23 History atenolol 50 mg-chlorthalidone 25 1 tab PO DAILY #30 tabs 08/03/21 02/28/23 Rx mg tablet amoxicillin 875 mg-potassium 1 tab PO BID 02/28/23 02/28/23 History clavulanate 125 mg tablet ascorbic acid (vitamin C) 100 mg 0 mg PO DAILY 02/28/23 02/28/23 History tablet aspirin 81 mg capsule 81 mg PO DAILY 02/28/23 02/28/23 History prednisone 20 mg tablet 20 mg PO UD 02/28/23 02/28/23 History vitamin B complex 1 tab PO DAILY 02/28/23 02/28/23 History Patient History Medical History CVA (cerebral vascular accident) History of CVA (cerebrovascular accident) Hyperlipidemia Hypertension Surgical History H/O hernia repair Family History Other Hypertension Social History Smoking Status: Unknown if ever smoked Hx Alcohol Use: No Hx Substance Use: No Preferred Language: Maltese Communication Ability: Effective Communication Ability Comment: milady 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 Communication Tools: IPad 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 Cardiovascular: No chest pain, tightness or palpitations Abdomen: No pain, nausea, vomiting, diarrhea or constipation Musculoskeletal: (+) back pain, No joint pain, calf pain, swelling Neurologic: (+) generalized weakness, numbness/tingling, or balance problems Psychiatric: No anxiety or depression Skin: No rash or itch Physical Exam Physical Exam: PHYSICAL EXAM: General: awake, alert, appropriate Head: Normocephalic, atraumatic ENT: PERRLA, EOMI, no pharyngeal exudate, mucous membranes dry Neuro: AAO x 3, speech clear and appropriate- in her [place] language- indian answers appropriate for words she understands, strength intact bilaterally 5/5, sensation intact and equal all extremities and dermatomes, no pronator drift Chest: equal rise and fall of the chest, no accessory muscle use, no heaves or thrills, inspiratory wheeze, clear sputum, no sinus congestion endorsed Cardiac: Regular rate and rhythm, telemetry reviewed, skin warm dry, cap refill <3 seconds, peripheral pulses +2 no JVD, no murmur, no JVD, no edema GI: NABS x 4 quadrants, soft, nontender to palpation, no rebound, guarding or tenderness : Spontaneously voiding, no pain, no CVA tenderness, Psych: Normal mood and affect Skin: no rash or erythema Results & Data Results & Data Vital Signs (Past 12 Hours) Vital Signs Temp Pulse Pulse Resp BP BP Pulse Ox 02/28/23 18:00 63 18 156/63 H 94 02/28/23 17:33 71 02/28/23 16:00 64 18 143/54 H 94 02/28/23 14:05 67 21 171/63 H 94 02/28/23 12:39 58 L 20 95 02/28/23 12:43 36.6 C 58 L 20 193/89 H 95 02/28/23 12:31 57 L O2 Del Method 02/28/23 18:00 Room Air 02/28/23 17:33 02/28/23 16:00 Room Air 02/28/23 14:05 Room Air 02/28/23 12:39 Room Air 02/28/23 12:43 Room Air 02/28/23 12:31 Laboratory Results Abnormal lab results 02/28/23 02/28/23 02/28/23 Range/Units 13:00 14:14 14:14 WBC 11.72 H (4.8-10.8) K/ul Hct 35.8 L (37.0-47.0) % MCV 71.7 L (80.0-100.0) fL RDW Std Deviation 33.4 L (36.4-46.3) fL MPV 8.9 L (9.4-12.4) fL Neut # (Auto) 9.98 H (1.40-6.50) K/uL Sodium 108 L* (136-145) mmol/L Potassium 3.2 L (3.5-5.1) mmol/L Chloride 70 L (98-107) mmol/L BUN 24 H (6-23) mg/dl BUN/Creatinine Ratio 36.9 H (10-20) Glucose 214 H (70-99(Fasting)) mg/dl Osmolality (280-300) mOsm/kg Calcium 8.1 L (8.6-10.3) mg/dl Total Bilirubin 1.5 H (0.2-1.0) mg/dl AST 45 H (13-39) U/L Urine Protein (Negative) Urine Glucose (UA) (Negative) Ur Leukocyte Esterase (Negative) U Epithel Cells (Auto) (0-5) /lpf Parainfluenza 3 (PCR) DETECTED A* (NotDetected) 02/28/23 02/28/23 02/28/23 Range/Units 15:05 17:12 17:12 WBC (4.8-10.8) K/ul Hct (37.0-47.0) % MCV (80.0-100.0) fL RDW Std Deviation (36.4-46.3) fL MPV (9.4-12.4) fL Neut # (Auto) (1.40-6.50) K/uL Sodium 110 L* (136-145) mmol/L Potassium 3.0 L (3.5-5.1) mmol/L Chloride 74 L (98-107) mmol/L BUN (6-23) mg/dl BUN/Creatinine Ratio 34.9 H (10-20) Glucose 236 H (70-99(Fasting)) mg/dl Osmolality 242 L (280-300) mOsm/kg Calcium 7.4 L (8.6-10.3) mg/dl Total Bilirubin (0.2-1.0) mg/dl AST (13-39) U/L Urine Protein Trace H (Negative) Urine Glucose (UA) Trace H (Negative) Ur Leukocyte Esterase 2+ H (Negative) U Epithel Cells (Auto) >30 H (0-5) /lpf Parainfluenza 3 (PCR) (NotDetected) Diagnostic Findings Chest X-Ray 02/28/23 12:39 XR chest 1V portable CLINICAL HISTORY: Dyspnea TECHNIQUE: Single frontal radiograph of the chest was obtained. Comparison: None available at the time of this dictation. FINDINGS: No lines and tubes are seen. Cardiomegaly is noted. The aortic arch is calcified. The lungs are clear. No evidence of pleural effusion or pneumothorax. IMPRESSION: No acute chest disease. Cardiomegaly is noted. No evidence of pneumonia. ACT 112: Negative or not required by law. Electronically signed by: Antonio Carlos M.D. 02/28/2023 12:55 PM Medications Administered Home Medications atorvastatin 10 mg tablet 10 mg PO DAILY 08/02/21 [History Confirmed 02/28/23] atenolol 50 mg-chlorthalidone 25 mg tablet 1 tab PO DAILY #30 tabs 08/03/21 [Rx Confirmed 02/28/23] amoxicillin 875 mg-potassium clavulanate 125 mg tablet 1 tab PO BID 02/28/23 [History Confirmed 02/28/23] ascorbic acid (vitamin C) 100 mg tablet 0 mg PO DAILY 02/28/23 [History Confirmed 02/28/23] aspirin 81 mg capsule 81 mg PO DAILY 02/28/23 [History Confirmed 02/28/23] prednisone 20 mg tablet 20 mg PO UD 02/28/23 [History Confirmed 02/28/23] vitamin B complex 1 tab PO DAILY 02/28/23 [History Confirmed 02/28/23] Active Medications Aspirin (Aspirin 81 Mg Ectab) 81 mg PO DAILY BERNA Stop: 03/31/23 08:59 Atorvastatin Calcium (Atorvastatin 10 Mg Tab) 10 mg PO DAILY BERNA Stop: 03/31/23 08:59 Dextrose (D5w) 1,000 mls @ 100 mls/hr IV .Q10H BERNA Stop: 03/30/23 18:14 Miscellaneous Information (Pharmacy Glycemic Mgmt Consult) 1 each N/A UD PRN; Protocol PRN Reason: Consult Stop: 03/30/23 18:37 Vitamin B Complex (Vitamin B Complex Tab) 1 tab PO DAILY BERNA Stop: 03/31/23 08:59 Discontinued Medications Albuterol (Albut/Ipratrop 3mg/0.5mg Neb 3 Ml Vial) 3 ml INH NOW STA Stop: 02/28/23 12:40 Last Admin: 02/28/23 13:23 Dose: 3 ml Documented By: KENDY Sodium Chloride (Nss) 500 mls @ 999 mls/hr IV .Q31M STA Stop: 02/28/23 13:09 Last Infusion: 02/28/23 14:23 Dose: 0 mls/hr Documented By: Admin: 02/28/23 13:23 Dose: 999 mls/hr Documented By: KENDY Cefepime HCl (Maxipime) 2,000 mg in 20 mls @ 5 mls/min IV NOW STA; Protocol Stop: 02/28/23 12:42 Last Admin: 02/28/23 14:51 Dose: 5 mls/min Documented By: MILES Sodium Chloride (Nss 1000ml) 500 mls @ 999 mls/hr IV .Q31M ONE Stop: 02/28/23 15:23 Last Infusion: 02/28/23 16:00 Dose: 0 mls/hr Documented By: Admin: 02/28/23 15:09 Dose: 999 mls/hr Documented By: JV Methylprednisolone (Methylprednisolone 125 Mg/2 Ml Vial) 60 mg IV NOW STA Stop: 02/28/23 12:40 Last Admin: 02/28/23 13:23 Dose: 60 mg Documented By: KENDY ECG Additional Comments: Sinus bradycardia Otherwise normal ECG When compared with ECG of 02-AUG-2021 11:18, No significant change was found Coding Level of Care Code 44035 CRITICAL CARE 1ST 30-74M Diagnoses Viral respiratory infection J98.8; B97.89 Hyponatremia E87.1 History of CVA (cerebrovascular accident) Z86.73 Poorly-controlled hypertension I10 Obesity (BMI 30.0-34.9) E66.9 Hyperlipidemia E78.5
[2023-02-28 19:32] LABS: BUN Creatinine Ratio 31.3 (10-20); Creatinine Clr Calc Pharmacy 67.1 ml/min; Est GFR (African American) 95.5 ml/min; Est GFR (Non-African American) 82.4 ml/min; Potassium 3.5 mmol/L (3.5-5.1)
[2023-02-28] MEDS ORDERED: CARBOHYDRATES FOR HYPOGLYCEMIA PO PRN (20:15)
[2023-02-28] MEDS ORDERED: COUGH DROP (SUGAR FREE) LOZ 24 LOZ/1 BOX BUCCAL PRN (20:15)
[2023-02-28] MEDS ORDERED: GLUCOSE 10 TAB/TUBE PO PRN (20:15)
[2023-02-28] MEDS ORDERED: GLUCAGON FOR INJ 1 MG VIAL SQ PRN (20:15)
[2023-02-28] MEDS ORDERED: POTASSIUM CHLORIDE CRTAB 20 MEQ TABCR PO STA (20:15)
[2023-02-28] MEDS ORDERED: GLUCOSE 40% GEL 15 GM TUBE PO PRN (20:15)
[2023-02-28] MEDS ORDERED: INSULIN ASPART PER UNIT CHARGE SC SCH (21:00)
[2023-02-28] MEDS ORDERED: ICU Protocol for HYPERglycemia SCH (21:00)
[2023-02-28] MEDS ORDERED: LANTUS PER UNIT CHARGE SQ ONE (21:00)
[2023-02-28] MEDS: ENOXAPARIN INJ 40 MG/0.4 ML SYR SQ SCH (21:02)
[2023-02-28] MEDS ORDERED: hydrALAZINE HCL 20 MG/ML VIAL IV ONE (21:14)
[2023-02-28 21:31] LABS: Calcium 7.8 mg/dl (8.6-10.3); Potassium 3.9 mmol/L (3.5-5.1)
[2023-02-28 21:39] LABS: BUN Creatinine Ratio 35.5 (10-20); Creatinine Clr Calc Pharmacy 72.5 ml/min; Est GFR (Non-African American) 84.6 ml/min
[2023-02-28 23:37] LABS: BUN Creatinine Ratio 32.3 (10-20); Calcium 7.5 mg/dl (8.6-10.3); Creatinine Clr Calc Pharmacy 69.1 ml/min; Est GFR (African American) 96.5 ml/min; Est GFR (Non-African American) 83.3 ml/min; Potassium 3.1 mmol/L (3.5-5.1)
[2023-03-01] MEDS: ALBUTEROL 0.5% NEB SOLN 2.5 MG/0.5 ML VIAL NEB PRN ×2 (01:26→09:38)
[2023-03-01 02:10] LABS: BUN Creatinine Ratio 31.9 (10-20); Calcium 7.9 mg/dl (8.6-10.3); Creatinine Clr Calc Pharmacy 65.1 ml/min; Est GFR (African American) 94.6 ml/min; Est GFR (Non-African American) 81.6 ml/min; Potassium 3.4 mmol/L (3.5-5.1)
[2023-03-01 04:07] LABS: BUN Creatinine Ratio 31.9 (10-20); Calcium 7.4 mg/dl (8.6-10.3); Creatinine Clr Calc Pharmacy 65.1 ml/min; Est GFR (African American) 94.6 ml/min; Est GFR (Non-African American) 81.6 ml/min; Potassium 3.4 mmol/L (3.5-5.1)
[2023-03-01] MEDS ORDERED: SODIUM CHLORIDE 0.9% 1000ML 500 ML IV ONE (04:38)
[2023-03-01] MEDS: INSULIN ASPART PER UNIT CHARGE SC SCH ×6 (04:38→20:39)
[2023-03-01 06:52] LABS: Basophils # (auto) 0.01 K/uL (0-0.2); Basophils % (auto) 0.1 %; Hematocrit (blood only) 32.9 % (37.0-47.0); Hemoglobin 11.5 g/dl (12.0-16.0); Immature Granulocytes # (auto) 0.11 K/uL (0.01-0.20); Immature Granulocytes % (auto) 0.8 %; Lymphocytes % (auto) 9.6 %; Mean Corpuscular Hemoglobin 25.5 pg (25.0-34.0); Mean Corpuscular Volume 72.9 fL (80.0-100.0); Mean Platelet Volume 9.6 fL (9.4-12.4); Monocytes # (auto) 0.81 K/uL (0.11-0.59); Neutrophils # (auto) 11.31 K/uL (1.40-6.50); Neutrophils % (auto) 83.5 %; Platelet Count 255 K/uL (130-400); RDW Coefficient of Variation 13.1 % (11.5-14.5); RDW Standard Deviation 34.1 fL (36.4-46.3); Red Blood Count 4.51 M/uL (4.20-5.40); White Blood Count 13.54 K/ul (4.8-10.8)
[2023-03-01 07:02] LABS: Albumin Globulin Ratio 1.1 (0.9-2); Albumin Level 3.4 gm/dl (3.4-5.0); BUN Creatinine Ratio 33.8 (10-20); Calcium 7.3 mg/dl (8.6-10.3); Creatinine Clr Calc Pharmacy 69.8 ml/min; Est GFR (African American) 96.5 ml/min; Est GFR (Non-African American) 83.3 ml/min; Magnesium 1.6 mg/dl (1.7-2.4); Phosphorus 2.4 mg/dl (2.5-4.9); Potassium 3.3 mmol/L (3.5-5.1); Total Protein 6.4 gm/dl (6.0-8.3)
[2023-03-01] MEDS ORDERED: POTASSIUM CHLORIDE CRTAB 20 MEQ TABCR PO SCH (07:15)
[2023-03-01 07:16] LABS: Thyroid Stimulating Hormone < 0.010 uIu/ml (0.300-4.500)
[2023-03-01] MEDS: MAGNESIUM SULFATE / D5W 1 GM/100 ML BAG IV SCH ×4 (07:41→14:31)
[2023-03-01] MEDS: ICU ELECTROLYTE REPLACEMENT PROTOCOL SCH ×2 (07:41→11:28)
[2023-03-01] MEDS: ATENOLOL 50 MG TABLET PO SCH (07:49)
[2023-03-01 07:52] LABS: T4 Free Thyroxine 2.22 ng/dl (0.61-1.60)
--- NOTE | 2023-03-01 07:53 | Pharmacy Report ---
Pharmacy Glycemic Short Note 2 - Date of Service March 01, 2023 - Glycemic Short BSG Results (Last 24 hours): 02/28/23 02/28/23 02/28/23 14:14 17:12 19:03 Glucose 214 H 236 H 250 H POC Glucose 02/28/23 02/28/23 02/28/23 20:48 20:58 22:46 Glucose 275 H 262 H POC Glucose 290 H 03/01/23 03/01/23 03/01/23 01:29 03:30 06:08 Glucose 209 H 219 H 207 H POC Glucose 03/01/23 07:32 Glucose POC Glucose 211 H Laboratory Tests 03/01/23 11:38 POC Glucose 242 H OUTPATIENT ANTIDIABETIC REGIMEN: * N/A ASSESSMENT: * 82 YOF with severe asymptomatic hyponatremia, likely diuretic induced. Hyperglycemic, no DM dx, recently on Augmentin and Prednisone, viral respiratory illness. Antibiotic stopped, received Solu-medrol 60mg IV x1 in ER yesterday. * Patient received 10 units Lantus last night, and 14 units Novolog over last 12 hours, blood sugars remaining in 200s - tighten CF/CR and give additional basal. * May need to back off doses as steroid effects diminish. * A1c pending PLAN FOR INPATIENT GLYCEMIC CONTROL: * Basal insulin * Lantus 10 units SQ x 1 this AM, 15 units x 1 at 1200 * 10 units HS for BSG > 180mg/dl * Bolus insulin * NovoLog per scale ACHS or Q6hrs while NPO * Goal Range: Low 110 mg/dL - High 140 mg/dL * Correction Factor: 15 mg/dL/unit * Nutritional / Prandial insulin per carb ratio of 1 unit per 5 grams CHO consumed
[2023-03-01] MEDS ORDERED: POTASSIUM CHLORIDE 20 MEQ/15 ML UDC PO STA (08:07)
[2023-03-01] MEDS: ASPIRIN 81 MG ECTAB PO SCH (08:10)
[2023-03-01] MEDS: ATORVASTATIN 10 MG TAB PO SCH (08:10)
[2023-03-01] MEDS: VITAMIN B COMPLEX TAB PO SCH (08:10)
--- NOTE | 2023-03-01 08:28 | Critical Care Progress Note ---
Date of Service March 01, 2023 Assessment & Plan (1) Viral respiratory infection: (2) Hyponatremia: (3) History of CVA (cerebrovascular accident): (4) Poorly-controlled hypertension: (5) Obesity (BMI 30.0-34.9): (6) Hyperlipidemia: Plan Reason Critically Ill: 82 YOF with severe asymptomatic hyponatremia. Likely hypovolemic from diuretic hypoosmolar hyponatremia. Neuro - Hx CVA CAM ICU: Negative - Nuerologically intact, alert, oriented - Reports generalized weakness- no focal deficits Cardiac - HTN, HLD - Will hold her diuretics - Continue her Atenolol- add PRN IV dosing if needed - Consider GUY/ARB Respiratory - Parainfluenza 3 - Supportive care - hold on further steroids unless bronchospastic - Albuterol PRN if needed - Continue supportive care GI - No acute needs - regular diet RENAL/LYTES - Severe hypoosmolar hyopnatremia, other electrolyte disturbances - Nephro consulted-appreciate assistance - As she is asymptomatic this is likely a chronic issue- DDX is diruetic induced/hypovolemia or SIADH component from viral illness - BMP q3h - Serum osmo-242, Spec grav- 1.016 - D5, DDAVP as needed if sodium levels rise too quickly. - Free water restrict to 1200ml and overall fluid intake of 1800ml- patient may drink Gatorade/powerade, juice, gingerale - Replete Potassium- this will also bring up her NA levels - No acute needs ENDO - Hyperglycemia without diagnosis of DM - ICU hyperglycemia protocol goal < 180mg/dl - HGB A1C in morning - TSH in am HEME - No acute needs ID - See respiratory above LINES/IV ACCESS - PIV Continue use of these lines DVT PROPHYLAXIS - Lovenox 40mg subq daily, SCDS DISPO- ICU for 24-48 hours until NA stable/improving as she is asymptomatic this is likely chronic Admission and Anticipated Discharge Date Admission Date: February 28, 2023 Subjective No issues overnight. Patient denies any acute complaints. Review of Systems Review of Systems: All systems reviewed & are unremarkable except as noted in HPI & below Physical Exam Physical Exam: PHYSICAL EXAM: General: awake, alert, appropriate Head: Normocephalic, atraumatic ENT: PERRLA, EOMI, no pharyngeal exudate, mucous membranes dry Neuro: AAO x 3, speech clear and appropriate- in her [place] language- indonesian answers appropriate for words she understands, strength intact bilaterally 5/5, sensation intact and equal all extremities and dermatomes, no pronator drift Chest: equal rise and fall of the chest, no accessory muscle use, no heaves or thrills, inspiratory wheeze, clear sputum, no sinus congestion endorsed Cardiac: Regular rate and rhythm, telemetry reviewed, skin warm dry, cap refill <3 seconds, peripheral pulses +2 no JVD, no murmur, no JVD, no edema GI: NABS x 4 quadrants, soft, nontender to palpation, no rebound, guarding or tenderness : Spontaneously voiding, no pain, no CVA tenderness, Psych: Normal mood and affect Skin: no rash or erythema Results & Data Results & Data Vital Signs (Past 12 Hours) Vital Signs Temp Pulse Pulse Resp BP BP Pulse Ox 03/01/23 06:30 74 23 100 03/01/23 06:00 63 10 L 97 03/01/23 06:00 155/56 H 03/01/23 05:30 77 17 99 03/01/23 05:01 79 19 99 03/01/23 05:01 171/63 H 03/01/23 05:00 70 20 97 03/01/23 04:30 58 L 16 98 03/01/23 04:01 173/66 H 03/01/23 04:01 65 18 97 03/01/23 04:00 65 20 99 03/01/23 03:01 73 20 100 03/01/23 03:01 141/72 H 03/01/23 03:00 72 18 97 03/01/23 02:01 67 16 99 03/01/23 02:01 170/85 H 03/01/23 02:00 65 17 99 03/01/23 01:10 72 16 03/01/23 00:00 59 L 10 L 100 03/01/23 00:00 129/55 L 02/28/23 23:00 67 18 95 02/28/23 23:00 160/61 H 03/01/23 01:26 65 19 98 02/28/23 22:30 62 17 98 02/28/23 22:00 70 18 86 L 02/28/23 22:00 163/94 H 02/28/23 21:30 62 18 98 04/01/23 21:01 192/78 H 02/28/23 21:01 67 24 99 02/28/23 21:00 65 21 96 02/28/23 20:42 36.8 C 66 19 182/87 H 100 O2 Del Method O2 Flow Rate 03/01/23 06:30 03/01/23 06:00 03/01/23 06:00 03/01/23 05:30 03/01/23 05:01 03/01/23 05:01 03/01/23 05:00 03/01/23 04:30 03/01/23 04:01 03/01/23 04:01 03/01/23 04:00 03/01/23 03:01 03/01/23 03:01 03/01/23 03:00 03/01/23 02:01 03/01/23 02:01 03/01/23 02:00 03/01/23 01:10 03/01/23 00:00 03/01/23 00:00 02/28/23 23:00 02/28/23 23:00 03/01/23 01:26 Nasal Cannula 4 02/28/23 22:30 02/28/23 22:00 02/28/23 22:00 02/28/23 21:30 02/28/23 21:01 02/28/23 21:01 02/28/23 21:00 02/28/23 20:42 Nasal Cannula 2 Coding Level of Care Code 68940 SUB INP/OBS CARE 2/35MIN Diagnoses Viral respiratory infection J98.8; B97.89 Hyponatremia E87.1 History of CVA (cerebrovascular accident) Z86.73 Poorly-controlled hypertension I10 Obesity (BMI 30.0-34.9) E66.9 Hyperlipidemia E78.5
--- NOTE | 2023-03-01 08:32 | Electrocardiogram Report ---
Test Reason : Blood Pressure : / mmHG Vent. Rate : 058 BPM Atrial Rate : 058 BPM P-R Int : 168 ms QRS Dur : 080 ms QT Int : 468 ms P-R-T Axes : 043 035 046 degrees QTc Int : 459 ms Sinus bradycardia Otherwise normal ECG When compared with ECG of 02-AUG-2021 11:18, No significant change was found Confirmed by Gaudencio Machado ([id number]) on 03/01/2023 8:32:41 AM Referred By: REFERRED SELF Confirmed By:Gaudencio Machado
--- NOTE | 2023-03-01 08:37 | Nephrology Consultation ---
Date of Consultation March 01, 2023 Assessment & Plan (1) Hyponatremia: - likely diuretic induced on the background on poor solute in take. - Target Sodium of 114 until 2.00 pm today and 122-124 until 2.00 pm on 03/02. - Rate of correction has been on target,no need for desmopressin - Ok with hold D5W for now. - Q4 sodium - Continue with 1.8 lit total fluid restriction for 1 more day, she will self correct. - Replace K to keep levels > 4 and Magnesium > 2.0 (2) Viral respiratory infection: -- as per primary. History of Present Illness Reason for Consultation: Hyponatremia Attending Physician: Antonio Vang MD History of Present Illness 82 yr old Marathi speaking lady a/w SOB and cough with poor appetite over the last 5 days.PMH of CVA with some residual left-sided weakness, hyperlipidemia, obesity and HTN ( On atenolol- chlorthalidone).ER labs were significant for Na of 108, k 3.2 with reduced tonicity. h/o recent increase in chlorthalidone does in October 2022.Inflammatory markers were increased.She had recently been for Tx for likley CAP by her PCP with Augmentin and steroids.Normal mentation on presentation She was a/ to ICU for close monitoring for safe increase in sodium. She has received multiple doses of saline boluses and has been on D5W ( Stopped in am today).Latest NA --112,k 3.3. She is also has low calcium , low magnesium and low Phosphorus. Passing urine, Alert and oriented on exam. Allergies Allergy/AdvReac Type Severity Reaction Status Date / Time No Known Allergies Allergy Unverified 02/28/23 15:56 Home Medications Medication Instructions Recorded Confirmed Type atorvastatin 10 mg tablet 10 mg PO DAILY 08/02/21 02/28/23 History atenolol 50 mg-chlorthalidone 25 1 tab PO DAILY #30 tabs 08/03/21 02/28/23 Rx mg tablet amoxicillin 875 mg-potassium 1 tab PO BID 02/28/23 02/28/23 History clavulanate 125 mg tablet ascorbic acid (vitamin C) 100 mg 0 mg PO DAILY 02/28/23 02/28/23 History tablet aspirin 81 mg capsule 81 mg PO DAILY 02/28/23 02/28/23 History prednisone 20 mg tablet 20 mg PO UD 02/28/23 02/28/23 History vitamin B complex 1 tab PO DAILY 02/28/23 02/28/23 History Patient History Medical History CVA (cerebral vascular accident) History of CVA (cerebrovascular accident) Hyperlipidemia Hypertension Surgical History H/O hernia repair Family History Other Hypertension Social History Smoking Status: Unknown if ever smoked Hx Alcohol Use: No Hx Substance Use: No Preferred Language: Slovak Communication Ability: Effective Communication Ability Comment: 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 Communication Tools: IPad Supervisor Forming And Tempering Required: Yes Beliefs That Will Affect Care: None Current Living Situation: Family Current Living Situation Comment: lives with son How many Children do You have: 2 Other Information That Helps Us Care for You: No Feels Safe at Home: Yes Safety Concerns: Feels Safe At This Time Assistive Devices: None Review of Systems Review of Systems: All systems reviewed & are unremarkable except as noted in HPI & below Physical Exam Physical Exam: NAD, well developed HEENT: EOMI, PERRLA Lungs: CTA, no wheezing or crackles Cardiac: normal S1/S2, no murmur Abd: obese abd, ND, NT MSK: trace b/l LE pitting edema Psych: AAOx3 (but stated that the year is 2021), normal affect Results & Data Vital Signs (Past 12 Hours) Vital Signs Temp Pulse Pulse Resp BP BP Pulse Ox 03/01/23 06:30 74 23 100 03/01/23 06:00 63 10 L 97 03/01/23 06:00 155/56 H 03/01/23 05:30 77 17 99 03/01/23 05:01 79 19 99 03/01/23 05:01 171/63 H 03/01/23 05:00 70 20 97 03/01/23 04:30 58 L 16 98 03/01/23 04:01 173/66 H 03/01/23 04:01 65 18 97 03/01/23 04:00 65 20 99 04/02/23 03:01 73 20 100 03/01/23 03:01 141/72 H 03/01/23 03:00 72 18 97 03/01/23 02:01 67 16 99 03/01/23 02:01 170/85 H 03/01/23 02:00 65 17 99 03/01/23 01:10 72 16 03/01/23 00:00 59 L 10 L 100 03/01/23 00:00 129/55 L 02/28/23 23:00 67 18 95 02/28/23 23:00 160/61 H 03/01/23 01:26 65 19 98 02/28/23 22:30 62 17 98 02/28/23 22:00 70 18 86 L 02/28/23 22:00 163/94 H 02/28/23 21:30 62 18 98 02/28/23 21:01 192/78 H 02/28/23 21:01 67 24 99 02/28/23 21:00 65 21 96 02/28/23 20:42 36.8 C 66 19 182/87 H 100 O2 Del Method O2 Flow Rate 03/01/23 06:30 03/01/23 06:00 03/01/23 06:00 03/01/23 05:30 03/01/23 05:01 03/01/23 05:01 03/01/23 05:00 03/01/23 04:30 03/01/23 04:01 03/01/23 04:01 03/01/23 04:00 03/01/23 03:01 03/01/23 03:01 03/01/23 03:00 03/01/23 02:01 03/01/23 02:01 03/01/23 02:00 03/01/23 01:10 03/01/23 00:00 03/01/23 00:00 02/28/23 23:00 02/28/23 23:00 03/01/23 01:26 Nasal Cannula 4 02/28/23 22:30 02/28/23 22:00 02/28/23 22:00 02/28/23 21:30 02/28/23 21:01 02/28/23 21:01 02/28/23 21:00 02/28/23 20:42 Nasal Cannula 2 Laboratory Results 03/01/23 06:08 03/01/23 06:08
[2023-03-01] MEDS ORDERED: LANTUS PER UNIT CHARGE SQ SCH ×2 (09:00→21:00)
[2023-03-01 09:32] LABS: Calcium 7.9 mg/dl (8.6-10.3); Potassium 3.4 mmol/L (3.5-5.1)
[2023-03-01 09:41] LABS: BUN Creatinine Ratio 33.3 (10-20); Creatinine Clr Calc Pharmacy 65.8 ml/min; Est GFR (African American) 94.6 ml/min; Est GFR (Non-African American) 81.6 ml/min
--- NOTE | 2023-03-01 11:25 | Hospitalist Progress Note ---
Date of Service March 01, 2023 Assessment & Plan (1) Hyponatremia: Plan: This is an 82-year-old female with PMH of history of CVA with some residual left-sided weakness, hyperlipidemia, obesity SOB and cough x 5 days and was found to have severe hyponatremia on admission. Presented with acute confusion and also unstable eating gait since yesterday morning Diuretic-induced - holding chlorthalidone (dose was increased in Oct 2021 due to uncontrolled HTN and Na was 138 at that time, so hyponatremia likely a chronic process) Initial sodium 108 (corrects to 111 when accounting for hyperglycemia) Given 1L NSS in ED with repeat sodium of 110 Consulted nephrology-goal correction of sodium would be 114 x 2 p.m. today, received D5W later on received normal saline 500 mill bolus last night, will replace electrolytes as needed Appreciate physical therapy assistant input and recommendation Low urine and serum osmolality and high random urine sodium likely secondary to use of chlorthalidone Clinically much better today Sodium is expected to correct spontaneously Patient is transferred to telemetry unit Will continue PRP every 3 hours Discussed with the son in detail (2) Viral respiratory infection: Plan: Parainfluenza 3 detected on viral PCR. No indication to continue Augmentin prescribed in outpatient setting (completed 5 days), completed 5 day prednisone taper Supportive care (3) Hypertension: Plan: Holding atenolol-chlorthalidone given hyponatremia Blood pressure needs to be around 150 systolic (4) Hyperlipidemia: Plan: Continue statin (5) History of CVA (cerebrovascular accident): Plan: Remote history of CVA with mild left sided weakness. Continue aspirin, statin DVT Ppx: SQ lovenox Code status: FULL PCP: My Dispo: Admitted to ICU Total of 60 minutes spent with the patient, reviewing the medications and adjusting the medications, discussions with the specialist and with the son Admission and Anticipated Discharge Date Admission Date: February 28, 2023 Subjective 03/01/2023 The patient was seen and examined with the health service worker in ICU in presence of the son She was admitted with acute confusion and unstable it with ambulation that happened yesterday morning She did not have any seizures or any acute neurological symptoms except c onfusion She has been feeling little better as of this morning Review of Systems Review of Systems: All systems reviewed and are unremarkable except as noted below Physical Exam Physical Exam: Sitting on a chair with minimal discomfort due to weakness and shortness of breath Constitutional: well developed, well nourished, + ill appearing and + obese Eyes: PERRL, conjunctivae normal, anicteric sclerae ENMT: external ear and nose normal, oropharynx normal Neck: trachea midline, no thyromegaly Respiratory: + respiratory distress (Minimal distress at rest) Auscultation: + diminished lung sounds and + crackles (Minimal bibasilar crackles); no wheezes Cardiovascular: Rate/Rhythm: regular rate and regular rhythm; not tachycardic Heart Sounds: normal S1 and normal S2; no murmur Extremities: + edema (Trace edema bilaterally) Gastrointestinal (Abdomen): Inspection/Auscultation: + abdomen distended and normal bowel sounds Percussion/Palpation: abdomen soft; abdomen nontender Musculoskeletal: No acute arthritis involving any joint Neurologic: normal touch/pain/proprioception and moves all extremities; no focal motor deficits Alert, awake and oriented x3 Psychiatric: A+Ox3, euthymic affect Lymphatic: no cervical or axillary lymphadenopathy Results & Data Results & Data Vital Signs (Past 12 Hours) Vital Signs Temp Pulse Pulse Resp BP Pulse Ox O2 Del Method 03/01/23 09:41 60 16 99 Nasal Cannula 03/01/23 09:00 63 19 149/63 H 100 Nasal Cannula 03/01/23 08:00 85 21 151/88 H 99 Nasal Cannula 03/01/23 07:00 68 22 141/61 H 100 Nasal Cannula 03/01/23 09:13 Nasal Cannula 03/01/23 08:00 37.1 C 03/01/23 06:30 74 23 100 03/01/23 06:00 63 10 L 97 03/01/23 06:00 155/56 H 03/01/23 05:30 77 17 99 03/01/23 05:01 79 19 99 03/01/23 05:01 171/63 H 03/01/23 05:00 70 20 97 03/01/23 04:30 58 L 16 98 03/01/23 04:01 173/66 H 03/01/23 04:01 65 18 97 03/01/23 04:00 65 20 99 03/01/23 03:01 73 20 100 03/01/23 03:01 141/72 H 03/01/23 03:00 72 18 97 03/01/23 02:01 67 16 99 03/01/23 02:01 170/85 H 03/01/23 02:00 65 17 99 03/01/23 01:10 72 16 03/01/23 00:00 59 L 10 L 100 03/01/23 00:00 129/55 L 03/01/23 01:26 65 19 98 Nasal Cannula O2 Flow Rate 03/01/23 09:41 3 03/01/23 09:00 3 03/01/23 08:00 3 03/01/23 07:00 4 03/01/23 09:13 3 03/01/23 08:00 03/01/23 06:30 03/01/23 06:00 03/01/23 06:00 03/01/23 05:30 03/01/23 05:01 03/01/23 05:01 03/01/23 05:00 03/01/23 04:30 03/01/23 04:01 03/01/23 04:01 03/01/23 04:00 03/01/23 03:01 03/01/23 03:01 03/01/23 03:00 03/01/23 02:01 03/01/23 02:01 03/01/23 02:00 03/01/23 01:10 03/01/23 00:00 03/01/23 00:00 03/01/23 01:26 4 Laboratory Results Short CBC 02/28/23 03/01/23 Range/Units 14:14 06:08 WBC 11.72 H 13.54 H (4.8-10.8) K/ul Hgb 12.7 11.5 L (12.0-16.0) g/dl Hct 35.8 L 32.9 L (37.0-47.0) % Plt Count 284 255 (130-400) K/uL BMP 02/28/23 02/28/23 02/28/23 14:14 17:12 19:03 Sodium 108 L* 110 L* 109 L* Potassium 3.2 L 3.0 L 3.5 Chloride 70 L 74 L 72 L Carbon Dioxide 30 28 29 BUN 24 H 22 21 Creatinine 0.65 0.63 0.67 Glucose 214 H 236 H 250 H Calcium 8.1 L 7.4 L 8.0 L 02/28/23 02/28/23 03/01/23 20:58 22:46 01:29 Sodium 109 L* 111 L* 111 L* Potassium 3.9 3.1 L D 3.4 L Chloride 74 L 75 L 75 L Carbon Dioxide 24 29 28 BUN 22 21 22 Creatinine 0.62 0.65 0.69 Glucose 275 H 262 H 209 H Calcium 7.8 L 7.5 L 7.9 L 03/01/23 03/01/23 03/01/23 03:30 06:08 08:59 Sodium 111 L* 112 L* 112 L* Potassium 3.4 L 3.3 L 3.4 L Chloride 75 L 76 L 77 L Carbon Dioxide 28 29 26 BUN 22 22 23 Creatinine 0.69 0.65 0.69 Glucose 219 H 207 H 230 H Calcium 7.4 L 7.3 L 7.9 L Liver Function 02/28/23 03/01/23 Range/Units 14:14 06:08 Total Bilirubin 1.5 H 1.0 D (0.2-1.0) mg/dl AST 45 H 34 (13-39) U/L ALT 35 33 (7-52) U/L Alkaline Phosphatase 87 70 (34-104) U/L Albumin 3.8 3.4 (3.4-5.0) gm/dl Urine 02/28/23 Range/Units 15:05 Urine Color Yellow Urine Appearance Clear (Clear) Urine pH 7.5 (4.5-7.5) Ur Specific [place] 1.016 (1.000-1.030) Urine Protein Trace H (Negative) Urine Glucose (UA) Trace H (Negative) Medications Administered Current Inpatient Medications Albuterol (Albuterol 0.5% Neb Soln 2.5 Mg/0.5 Ml Vial) 2.5 mg NEB Q6R PRN; Protocol PRN Reason: wheeze, cough Stop: 03/30/23 20:14 Last Admin: 03/01/23 09:38 Dose: 2.5 mg Aspirin (Aspirin 81 Mg Ectab) 81 mg PO DAILY [facility] Stop: 03/31/23 08:59 Last Admin: 03/01/23 08:10 Dose: 81 mg Atenolol (Atenolol 50 Mg Tablet) 50 mg PO QAM [facility] Stop: 03/31/23 08:59 Last Admin: 03/01/23 07:49 Dose: 50 mg Atorvastatin Calcium (Atorvastatin 10 Mg Tab) 10 mg PO DAILY [facility] Stop: 03/31/23 08:59 Last Admin: 03/01/23 08:10 Dose: 10 mg Dextrose (Dextrose 50% 50 Ml Syringe) 25 - 50 ml IV UD PRN; Protocol PRN Reason: Hypoglycemia Protocol Stop: 03/30/23 20:14 Enoxaparin Sodium (Enoxaparin Inj 40 Mg/0.4 Ml Syr) 40 mg SQ Q24H [facility] Stop: 03/30/23 20:59 Last Admin: 02/28/23 21:02 Dose: 40 mg Glucagon (Glucagon For Inj 1 Mg Vial) 1 mg SQ UD PRN; Protocol PRN Reason: Hypoglycemia Protocol Stop: 03/30/23 20:14 Glucose (Glucose 10 Tab/Tube) 4 - 8 tab PO UD PRN; Protocol PRN Reason: Hypoglycemia Treatment Stop: 03/30/23 20:14 Glucose (Glucose 40% Gel 15 Gm Tube) 15 - 30 gm PO UD PRN; Protocol PRN Reason: Hypoglycemia Protocol Stop: 03/30/23 20:14 Dextrose (D5w) 1,000 mls @ 100 mls/hr IV .Q10H [facility] Stop: 03/30/23 18:14 Last Admin: 02/28/23 22:37 Dose: Not Given Magnesium Sulfate/Dextrose (Magnesium Sulfate / D5w) 1 gm in 100 mls @ 50 mls/hr IV Q2H [facility] Stop: 03/01/23 15:14 Last Admin: 03/01/23 09:57 Dose: 50 mls/hr Insulin Aspart (Insulin Aspart Per Unit Charge) 0 units SC ACHS [facility] Stop: 03/31/23 07:29 Last Admin: 03/01/23 07:49 Dose: 7 units Insulin Glargine (Lantus Per Unit Charge) 10 units SQ DAILY [facility]; Protocol Stop: 03/31/23 08:59 Last Admin: 03/01/23 08:16 Dose: 10 units Insulin Glargine (Lantus Per Unit Charge) 0 units SQ HS [facility]; Protocol Stop: 03/31/23 20:59 Menthol (Cough Drop (Sugar Free) Jerson 24 Jerson/1 Box) 1 jerson BUCCAL QID PRN PRN Reason: Sore Throat Stop: 03/30/23 20:14 Miscellaneous (Icu Electrolyte Replacement Protocol) 1 each N/A BID@,18 [facility]; Protocol Stop: 03/08/23 05:59 Last Admin: 03/01/23 07:41 Dose: 1 each Miscellaneous (Carbohydrates For Hypoglycemia ) 15 - 30 gm PO UD PRN PRN Reason: Hypoglycemia Protocol Stop: 03/30/23 20:14 Miscellaneous Information (Pharmacy Glycemic Mgmt Consult) 1 each N/A UD PRN; Protocol PRN Reason: Consult Stop: 03/30/23 18:37 Polyethylene Glycol (Polyethylene (Miralax) 17 Gm Pack) 17 gm PO DAILY [facility] Stop: 03/31/23 11:29 Vitamin B Complex (Vitamin B Complex Tab) 1 tab PO DAILY [facility] Stop: 03/31/23 08:59 Last Admin: 03/01/23 08:10 Dose: 1 tab
[2023-03-01] MEDS ORDERED: LANTUS PER UNIT CHARGE SQ ONE (12:00)
[2023-03-01] MEDS: POLYETHYLENE (MIRALAX) 17 GM PACK PO SCH (12:18)
[2023-03-01 13:42] LABS: BUN Creatinine Ratio 34.3 (10-20); Calcium 7.8 mg/dl (8.6-10.3); Creatinine Clr Calc Pharmacy 67.7 ml/min; Est GFR (African American) 95.5 ml/min; Est GFR (Non-African American) 82.4 ml/min; Potassium 4.2 mmol/L (3.5-5.1)
[2023-03-01] MEDS ORDERED: SODIUM CHLORIDE 0.9% 1000ML 1,000 ML IV SCH (15:45)
[2023-03-01 17:41] LABS: BUN Creatinine Ratio 36.4 (10-20); Calcium 8.4 mg/dl (8.6-10.3); Creatinine Clr Calc Pharmacy 68.7 ml/min; Est GFR (Non-African American) 82.8 ml/min; Potassium 4.6 mmol/L (3.5-5.1)
[2023-03-01] MEDS: ENOXAPARIN INJ 40 MG/0.4 ML SYR SQ SCH (20:38)
[2023-03-01 21:23] LABS: BUN Creatinine Ratio 35.1 (10-20); Creatinine Clr Calc Pharmacy 61.3 ml/min; Est GFR (African American) 88.1 ml/min; Potassium 4.3 mmol/L (3.5-5.1)
[2023-03-02 01:46] LABS: BUN Creatinine Ratio 38.8 (10-20); Calcium 7.8 mg/dl (8.6-10.3); Creatinine Clr Calc Pharmacy 67.7 ml/min; Est GFR (African American) 95.5 ml/min; Est GFR (Non-African American) 82.4 ml/min; Potassium 3.8 mmol/L (3.5-5.1)
[2023-03-02 04:53] LABS: Basophils # (auto) 0.04 K/uL (0-0.2); Basophils % (auto) 0.2 %; Eosinophils # (auto) 0.05 K/uL (0-0.50); Eosinophils % (auto) 0.2 %; Hematocrit (blood only) 39.3 % (37.0-47.0); Hemoglobin 13.9 g/dl (12.0-16.0); Immature Granulocytes # (auto) 0.23 K/uL (0.01-0.20); Immature Granulocytes % (auto) 1.1 %; Lymphocytes # (auto) 2.46 K/uL (1.2-3.4); Lymphocytes % (auto) 12.3 %; Mean Corpuscular Hemoglobin 25.6 pg (25.0-34.0); Mean Corpuscular Hgb Conc 35.4 g/dL (32.0-36.0); Mean Corpuscular Volume 72.5 fL (80.0-100.0); Mean Platelet Volume 9.3 fL (9.4-12.4); Monocytes % (auto) 11.5 %; Neutrophils # (auto) 14.93 K/uL (1.40-6.50); Neutrophils % (auto) 74.7 %; Platelet Count 299 K/uL (130-400); RDW Coefficient of Variation 13.4 % (11.5-14.5); RDW Standard Deviation 34.6 fL (36.4-46.3); Red Blood Count 5.42 M/uL (4.20-5.40); White Blood Count 20.01 K/ul (4.8-10.8)
[2023-03-02 05:18] LABS: Calcium 8.1 mg/dl (8.6-10.3); Creatinine Clr Calc Pharmacy 74.4 ml/min; Est GFR (African American) 98.5 ml/min; Magnesium 2.4 mg/dl (1.7-2.4); Potassium 3.7 mmol/L (3.5-5.1)
[2023-03-02] MEDS: ICU ELECTROLYTE REPLACEMENT PROTOCOL SCH (06:02)
[2023-03-02] MEDS: INSULIN ASPART PER UNIT CHARGE SC SCH ×4 (07:43→21:50)
[2023-03-02 07:52] LABS: Estimated Average Glucose 183 mg/dl
[2023-03-02] MEDS: ATORVASTATIN 10 MG TAB PO SCH (08:13)
[2023-03-02] MEDS: ACETAMINOPHEN 500 MG TAB PO PRN ×2 (08:13→16:08)
[2023-03-02] MEDS: ATENOLOL 50 MG TABLET PO SCH (08:14)
[2023-03-02] MEDS: ASPIRIN 81 MG ECTAB PO SCH (08:14)
[2023-03-02] MEDS: VITAMIN B COMPLEX TAB PO SCH (08:14)
[2023-03-02] MEDS: POLYETHYLENE (MIRALAX) 17 GM PACK PO SCH (08:14)
--- NOTE | 2023-03-02 09:00 | Nephrology Progress Note ---
Date of Service March 02, 2023 Assessment & Plan (1) Hyponatremia: Plan: - likely diuretic induced on the background on poor solute intake. - Target Sodium of 121 for AM tomorrow - Rate of correction has been on target, even slow - Q4h bmp stat - Continue with 1.2 lit total fluid restriction > protein shakes do not count toward fluid limit - Replace K to keep levels > 4 and Magnesium > 2.0 >>will start lasix 40 mg IV bid 17, first dose today and standing K (2) Viral respiratory infection: Plan: -- as per primary. Admission and Anticipated Discharge Date Admission Date: February 28, 2023 Subjective yesterday had 1LNS + 60 mEq K >> sNa this am pending, last one 114, plateau'd. 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) Physical Exam Constitutional: well developed, well nourished and + acute distress Eyes: EOM intact bilaterally ENMT: Ears: no external ear abnormality Nose: no external nose abnormality Mouth: + dry oral mucous membranes Neck: no nuchal rigidity Respiratory: normal respiratory effort Auscultation: + diminished lung sounds Cardiovascular: RRR, no murmur, no edema Gastrointestinal (Abdomen): Inspection/Auscultation: normal bowel sounds Percussion/Palpation: abdomen soft; abdomen nontender Musculoskeletal: Extremities: strength 5/5 throughout Skin: no rashes, warm and dry Neurologic: flores, fluent speech, no tremor Results & Data Vital Signs (Past 12 Hours) Vital Signs Temp Pulse Resp BP Pulse Ox O2 Del Method 03/02/23 07:00 36.4 C L 65 18 156/59 H 96 03/02/23 08:00 Room Air 03/02/23 08:00 65 03/02/23 04:00 37 C 78 15 145/64 H 03/02/23 03:00 64 14 03/02/23 02:00 70 20 03/02/23 01:10 69 20 03/02/23 00:00 36.9 C 63 13 160/70 H 03/01/23 23:00 61 9 L 03/01/23 22:00 70 14 03/01/23 21:00 81 14 89 L Laboratory Results 03/02/23 04:38
[2023-03-02 10:10] LABS: Calcium 7.8 mg/dl (8.6-10.3); Creatinine Clr Calc Pharmacy 89.1 ml/min; Est GFR (African American) 104.5 ml/min; Est GFR (Non-African American) 90.2 ml/min; Potassium 3.7 mmol/L (3.5-5.1)
[2023-03-02] MEDS ORDERED: amLODIPine BESYLATE 5 MG TAB PO SCH (12:00)
[2023-03-02] MEDS ORDERED: KETOROLAC TROMETHAMINE 15 MG/ML VIAL IV PRN (13:02)
[2023-03-02] MEDS ORDERED: hydrALAZINE HCL 20 MG/ML VIAL IV PRN (13:02)
--- NOTE | 2023-03-02 13:05 | Pharmacy Report ---
Pharmacy Glycemic Short Note 2 - Date of Service March 02, 2023 - Glycemic Short BSG Results (Last 24 hours): 03/01/23 03/01/23 03/01/23 13:01 16:27 17:12 Glucose 242 H 129 H POC Glucose 148 H 03/01/23 03/01/23 03/02/23 20:33 20:37 00:52 Glucose 123 H 84 POC Glucose 123 H 03/02/23 03/02/23 03/02/23 04:38 07:15 08:20 Glucose 76 81 POC Glucose 78 03/02/23 10:24 Glucose POC Glucose 155 H OUTPATIENT ANTIDIABETIC REGIMEN: * A1c 8.0% ASSESSMENT: 03/02: * A1c of 8.0% indicates diabetes, no previous diagnosis * Fasting below goal this AM- held AM dose, will do reduced scale with dinner * Novolog parameters loosened back to weight based stress of 2 as BSGs have trended downward, no further steroid use 03/01 * 82 YOF with severe asymptomatic hyponatremia, likely diuretic induced. Hyperglycemic, no DM dx, recently on Augmentin and Prednisone, viral respiratory illness. Antibiotic stopped, received Solu-medrol 60mg IV x1 in ER yesterday. * Patient received 10 units Lantus last night, and 14 units Novolog over last 12 hours, blood sugars remaining in 200s - tighten CF/CR and give additional basal. * May need to back off doses as steroid effects diminish. * A1c pending PLAN FOR INPATIENT GLYCEMIC CONTROL: * Basal insulin * Lantus 10/15 units with dinner * Bolus insulin * NovoLog per scale ACHS or Q6hrs while NPO * Goal Range: Low 110 mg/dL - High 140 mg/dL * Correction Factor: 25 mg/dL/unit * Nutritional / Prandial insulin per carb ratio of 1 unit per 9 grams CHO consumed
[2023-03-02 13:44] LABS: BUN Creatinine Ratio 44.1 (10-20); Calcium 8.3 mg/dl (8.6-10.3); Est GFR (African American) 99.6 ml/min; Potassium 3.8 mmol/L (3.5-5.1)
--- NOTE | 2023-03-02 15:33 | Hospitalist Progress Note ---
Date of Service March 02, 2023 Assessment & Plan (1) Hyponatremia: Plan: This is an 82-year-old female with PMH of history of CVA with some residual left-sided weakness, hyperlipidemia, obesity SOB and cough x 5 days and was found to have severe hyponatremia on admission. Presented with acute confusion and also unstable eating gait since yesterday morning Diuretic-induced - holding chlorthalidone (dose was increased in Oct 2021 due to uncontrolled HTN and Na was 138 at that time, so hyponatremia likely a chronic process) Initial sodium 108 (corrects to 111 when accounting for hyperglycemia) Given 1L NSS in ED with repeat sodium of 110 Consulted nephrology-goal correction of sodium would be 114 x 2 p.m. today, received D5W later on received normal saline 500 mill bolus last night, will replace electrolytes as needed Appreciate tax intern input and recommendation Low urine and serum osmolality and high random urine sodium likely secondary to use of chlorthalidone Clinically much better today Sodium is expected to correct spontaneously Patient is transferred to telemetry unit Received 1 L of normal saline yesterday-sodium level remains at 115 as of 3 PM We will continue current management (2) Viral respiratory infection: Plan: Parainfluenza 3 detected on viral PCR. No indication to continue Augmentin prescribed in outpatient setting (completed 5 days), completed 5 day prednisone taper Supportive care Complains to have aches and pains involving the chest wall, back and also right hip Tylenol is not helping so started with intravenous Toradol 30 mg every 6 hourly as needed (3) Hypertension: Plan: Holding atenolol-chlorthalidone given hyponatremia Blood pressure needs to be around 150 systolic Added a small dose of amlodipine to control the blood pressure (4) Hyperlipidemia: Plan: Continue statin (5) History of CVA (cerebrovascular accident): Plan: Remote history of CVA with mild left sided weakness. Continue aspirin, statin DVT Ppx: SQ lovenox Code status: FULL PCP: My Dispo: Admitted to ICU Total of 45 minutes spent with the patient, reviewing the medications and adjusting the medications, discussions with the specialist and with the son Admission and Anticipated Discharge Date Admission Date: February 28, 2023 Subjective 03/01/2023 The patient was seen and examined with the tuckpointer cleaner caulker in ICU in presence of the son She was admitted with acute confusion and unstable it with ambulation that happened yesterday morning She did not have any seizures or any acute neurological symptoms except confusion She has been feeling little better as of this morning 03/02/2023 The patient was seen and examined in ICU She has been complaining of aches and pains involving the chest wall, back and also right hip pain Denies any shortness of breath at rest Complains to have some swelling of the legs which has been like that for a long time Review of Systems Review of Systems: All systems reviewed and are unremarkable except as noted below Physical Exam Physical Exam: Lying in bed comfortably Constitutional: well developed, well nourished, + ill appearing and + obese Eyes: PERRL, conjunctivae normal, anicteric sclerae ENMT: external ear and nose normal, oropharynx normal Neck: trachea midline, no thyromegaly Respiratory: + respiratory distress (Minimal distress at rest) Auscultation: + diminished lung sounds and + crackles (Minimal bibasilar crackles); no wheezes Cardiovascular: Rate/Rhythm: regular rate and regular rhythm; not tachycardic Heart Sounds: normal S1 and normal S2; no murmur Extremities: + edema (Trace edema bilaterally) Gastrointestinal (Abdomen): Inspection/Auscultation: + abdomen distended and normal bowel sounds Percussion/Palpation: abdomen soft; abdomen nontender Musculoskeletal: No acute arthritis involving any joint Neurologic: normal touch/pain/proprioception and moves all extremities; no focal motor deficits Psychiatric: A+Ox3, euthymic affect Lymphatic: no cervical or axillary lymphadenopathy Results & Data Results & Data Vital Signs (Past 12 Hours) Vital Signs Temp Pulse Resp BP Pulse Ox O2 Del Method 03/02/23 13:29 159/76 H 03/02/23 11:34 189/84 H 03/02/23 11:31 58 L 20 96 Room Air 03/02/23 11:38 36.8 C 03/02/23 07:00 36.4 C L 65 18 156/59 H 96 03/02/23 08:00 Room Air 03/02/23 08:00 65 03/02/23 04:00 37 C 78 15 145/64 H Laboratory Results Short CBC 03/02/23 Range/Units 04:38 WBC 20.01 H (4.8-10.8) K/ul Hgb 13.9 (12.0-16.0) g/dl Hct 39.3 (37.0-47.0) % Plt Count 299 (130-400) K/uL BMP 03/01/23 03/01/23 03/02/23 17:12 20:37 00:52 Sodium 115 L* 116 L* 115 L* Potassium 4.6 4.3 3.8 Chloride 81 L 82 L 79 L Carbon Dioxide 26 28 30 BUN 24 H 26 H 26 H Creatinine 0.66 0.74 0.67 Glucose 129 H 123 H 84 Calcium 8.4 L 8.0 L 7.8 L 03/02/23 03/02/23 03/02/23 04:38 08:20 13:11 Sodium 114 L* 115 L* 115 L* Potassium 3.7 3.7 3.8 Chloride 78 L 78 L 77 L Carbon Dioxide 29 31 31 BUN 25 H 25 H 26 H Creatinine 0.61 0.51 L 0.59 L Glucose 76 81 130 H Calcium 8.1 L 7.8 L 8.3 L Medications Administered Current Inpatient Medications Acetaminophen (Acetaminophen 500 Mg Tab) 1,000 mg PO Q8H PRN PRN Reason: Pain Stop: 04/01/23 07:25 Last Admin: 03/02/23 08:13 Dose: 1,000 mg Albuterol (Albuterol 0.5% Neb Soln 2.5 Mg/0.5 Ml Vial) 2.5 mg NEB Q6R PRN; Protocol PRN Reason: wheeze, cough Stop: 03/30/23 20:14 Last Admin: 03/01/23 09:38 Dose: 2.5 mg Amlodipine Besylate (Amlodipine Besylate 5 Mg Tab) 5 mg PO QAM [facility] Stop: 04/01/23 11:59 Last Admin: 03/02/23 13:18 Dose: 5 mg Aspirin (Aspirin 81 Mg Ectab) 81 mg PO DAILY [facility] Stop: 03/31/23 08:59 Last Admin: 03/02/23 08:14 Dose: 81 mg Atenolol (Atenolol 50 Mg Tablet) 50 mg PO QAM [facility] Stop: 03/31/23 08:59 Last Admin: 03/02/23 08:14 Dose: 50 mg Atorvastatin Calcium (Atorvastatin 10 Mg Tab) 10 mg PO DAILY [facility] Stop: 03/31/23 08:59 Last Admin: 03/02/23 08:13 Dose: 10 mg Dextrose (Dextrose 50% 50 Ml Syringe) 25 - 50 ml IV UD PRN; Protocol PRN Reason: Hypoglycemia Protocol Stop: 03/30/23 20:14 Enoxaparin Sodium (Enoxaparin Inj 40 Mg/0.4 Ml Syr) 40 mg SQ Q24H [facility] Stop: 03/30/23 20:59 Last Admin: 03/01/23 20:38 Dose: 40 mg Glucagon (Glucagon For Inj 1 Mg Vial) 1 mg SQ UD PRN; Protocol PRN Reason: Hypoglycemia Protocol Stop: 03/30/23 20:14 Glucose (Glucose 10 Tab/Tube) 4 - 8 tab PO UD PRN; Protocol PRN Reason: Hypoglycemia Treatment Stop: 03/30/23 20:14 Glucose (Glucose 40% Gel 15 Gm Tube) 15 - 30 gm PO UD PRN; Protocol PRN Reason: Hypoglycemia Protocol Stop: 03/30/23 20:14 Hydralazine HCl (Hydralazine Hcl 20 Mg/Ml Vial) 10 mg IV Q6H PRN PRN Reason: Blood Pressure - High Stop: 04/01/23 13:14 Insulin Aspart (Insulin Aspart Per Unit Charge) 0 units SC ACHS [facility] Stop: 03/31/23 07:29 Last Admin: 03/02/23 12:22 Dose: 1 units Insulin Glargine (Lantus Per Unit Charge) 0 units SQ DAILY@1630 [facility]CLUDES [facility]; Protocol Stop: 04/01/23 16:29 Ketorolac Tromethamine (Ketorolac Tromethamine 15 Mg/Ml Vial) 15 mg IV Q6H PRN PRN Reason: Pain Stop: 03/07/23 13:01 Last Admin: 03/02/23 13:18 Dose: 15 mg Menthol (Cough Drop (Sugar Free) Jerson 24 Jerson/1 Box) 1 jerson BUCCAL QID PRN PRN Reason: Sore Throat Stop: 03/30/23 20:14 Miscellaneous (Carbohydrates For Hypoglycemia ) 15 - 30 gm PO UD PRN PRN Reason: Hypoglycemia Protocol Stop: 03/30/23 20:14 Miscellaneous Information (Pharmacy Glycemic Mgmt Consult) 1 each N/A UD PRN; Protocol PRN Reason: Consult Stop: 03/30/23 18:37 Polyethylene Glycol (Polyethylene (Miralax) 17 Gm Pack) 17 gm PO DAILY [facility] Stop: 03/31/23 11:29 Last Admin: 03/02/23 08:14 Dose: 17 gm Vitamin B Complex (Vitamin B Complex Tab) 1 tab PO DAILY [facility] Stop: 03/31/23 08:59 Last Admin: 03/02/23 08:14 Dose: 1 tab
[2023-03-02] MEDS ORDERED: LANTUS PER UNIT CHARGE SQ SCH (16:30)
[2023-03-02] MEDS ORDERED: FUROSEMIDE 40 MG/4 ML VIAL IV SCH (17:15)
[2023-03-02 18:55] LABS: Anion Gap 6 (3-11); BUN Creatinine Ratio 42.6 (10-20); Blood Urea Nitrogen 29 mg/dl (6-23); Calcium 8.2 mg/dl (8.6-10.3); Carbon Dioxide 29 mmol/L (21-32); Chloride 75 mmol/L (98-107); Creatinine Clr Calc Pharmacy 66.8 ml/min; Est GFR (African American) 95.1 ml/min; Glucose 167 mg/dl (70-99(Fasting)); Sodium 110 mmol/L (136-145)
[2023-03-02 19:19] LABS: Troponin I High Sensitivity 21.6 pg/ml (0-14)
--- NOTE | 2023-03-02 19:51 | Critical Care Consultation ---
Date of Consultation March 02, 2023 Assessment & Plan (1) Hyponatremia: (2) History of CVA (cerebrovascular accident): (3) Poorly-controlled hypertension: (4) Viral respiratory infection: (5) Parainfluenza infection: (6) Obesity (BMI 30.0-34.9): (7) Hyperlipidemia: (8) Hypertension: Plan Reason Critically Ill: Chronic Hyponatremia with concern for acute drop in level resulting in symptoms. Poor vascuar/phlebotomy difficulties also complicating reliability of samples. I will obtain peripheral samples if needed with use of ultrasound and consider arterial line access if needed. Other options explore in morning. Neuro - Hx of CVA CAM ICU: Negative - Patient up eating and ambulating- reports of generalized fatigue are likely multifactorial at this time including decrease sleep wake cycle as patient has been in ICU for past 48 hours with frequent awakenings as well as not sleeping last night. Cardiac - HTN, HLD, Chest pain/back pain - She did receive dose of diuretics today - Lasix - BP has been elevated and noted poor control- no acute need to lower - Continue with Atenolol - for her back pain and chest pain- lidocaine patch, heating pad, will send CRP/ESR and obtain ECHO eval for viral kvng/myocarditis Respiratory - Parainfluenza 3 - No acute needs - Symptoms improving - Remains with cough- non productive GI - GERD - PPI RENAL/LYTES - Hyponatremia, Hypokalemia - Hypoosmolar hyponatremia - Replete - Follow NA levels q4 hours- if decreasing add bolus of 0.9% saline- if <110 will add 3% saline - maintain K around 4.0 as this will also effect her NA levels - No acute needs ENDO - Hyperglycemia without diagnosis of DM - sliding scale for BG- Goal <180mg/DL HEME - No acute needs ID - As above supportive care for viral infection LINES/IV ACCESS - PIV, arterial access if needed Continue use of these lines DVT PROPHYLAXIS - SCDS, Lovenox DISPO- ICU until sodium stabilizes and if needed access- consider PICC line in morning I have personally spent 45 minutes of critical care time in the direct management of this patient. This is a life/limb threatening event. This includes time spent evaluating patient, direct bedside care, chart review, placing orders, interpretation of diagnostic studies, discussion with consultants, patient, and family members, as well as other required patient management activities. This time is exclusive of all separately billable procedures, and teaching time and separate from and in addition to any other critical care service time. Thank you for allowing us to participate in the care of this patient. Please refer to my attending physician's documentation for any further recommendations. History of Present Illness Reason for Consultation: Hyponatremia with weakness Requesting Physician: Alicia Alan MD Attending Physician: Antonio Vang MD History of Present Illness 82 YOF previously admitted to hospital and 24 hour stay in ICU for hyponatremia down to 108 found on admission. She was originally being evaluated for back pain and cough. She has parainfluenza 3. Her hyponatremia was originally att ributed to diuretic use, hypovolemic/low solute intake and was treated conservatively with saline boluses and optimization of her potassium levels. Patient was improving with numbers and symptoms until this afternoon. Most recent BMP is with sodium drop 110 from 115- however noted to be hemolyzed sample. Re-draw appears possibly hemolyzed as well. Patient does appear more fatigued in general today requiring more involvement to keep conversation ongoing. She has no focal deficits on neurological exam. Currently she is with poor body habitus as well as poor targets for phlebotomy. Will need to be able to obtain accurate data for treatment of her hyponatremia. If unable to obtain accurate peripheral sample will obtain arterial sample and place arterial line for frequent blood draws. Overall over the past 48 hours she has had appropriate increase in her sodium levels. She has been up for the majority of the past 24 hours with blood draws as well as most of the last evening sitting at bedside and to and from the bathroom. Her major complaint today is increasing of her back and chest pain. This was better controlled on admission. It is located in the center of upper back around her shoulder-blade and is reproducible. Uncontrolled pain may also effect her sodium levels as well. She has also had low potassium levels, again that may adversely effect her potassium levels- last two blood draws have been hemolyzed. Priority is having accurate sampling and treatment Patient will be accepted to ICU to assist with obtainining labs, placement of arterial line if unable to obtain peripheral access, as well as assessment and managing hyponatremia. Case was discussed with Dr. Alan as well as [facility] Hospitalist Dr. Jimenez. CODE: DNR/DNI Consults: Nephrology Allergies Allergy/AdvReac Type Severity Reaction Status Date / Time No Known Allergies Allergy Unverified 02/28/23 15:56 Home Medications Medication Instructions Recorded Confirmed Type atorvastatin 10 mg tablet 10 mg PO DAILY 08/02/21 02/28/23 History atenolol 50 mg-chlorthalidone 25 1 tab PO DAILY #30 tabs 08/03/21 02/28/23 Rx mg tablet amoxicillin 875 mg-potassium 1 tab PO BID 02/28/23 02/28/23 History clavulanate 125 mg tablet ascorbic acid (vitamin C) 100 mg 0 mg PO DAILY 02/28/23 02/28/23 History tablet aspirin 81 mg capsule 81 mg PO DAILY 02/28/23 02/28/23 History prednisone 20 mg tablet 20 mg PO UD 02/28/23 02/28/23 History vitamin B complex 1 tab PO DAILY 02/28/23 02/28/23 History Patient History Medical History CVA (cerebral vascular accident) History of CVA (cerebrovascular accident) Hyperlipidemia Hypertension Surgical History H/O hernia repair Family History Other Hypertension Social History Smoking Status: Unknown if ever smoked Hx Alcohol Use: No Hx Substance Use: No Preferred Language: [place] Communication Ability: Effective Communication Ability 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 Communication Tools: IPad Garnishment Specialist Required: Yes Beliefs That Will Affect Care: None Current Living Situation: Family Current Living Situation Comment: lives with son How many Children do You have: 2 Other Information That Helps Us Care for You: No Feels Safe at Home: Yes Safety Concerns: Feels Safe At This Time Assistive Devices: None Review of Systems Review of Systems: REVIEW OF SYSTEMS: Constitutional: No fever, sweats or chills Eyes: No diplopia, no worsening or blurred vision ENT: normal hearing, no trouble swallowing Respiratory: (+) cough, sputum, No dyspnea at rest or on exertion Cardiovascular: (+) reproducible chest pain, tightness or palpitations Abdomen: No pain, nausea, vomiting, diarrhea or constipation Musculoskeletal: (+) pain upper back, joint pain, calf pain, swelling Neurologic: (+) fatigue weakness, numbness/tingling, or balance problems Psychiatric: No anxiety or depression Skin: No rash or itch Physical Exam Physical Exam: PHYSICAL EXAM: General: awake, alert, conversant but tired appearing Head: Normocephalic, atraumatic ENT: PERRLA, EOMI, no pharyngeal exudate, mucous membranes dry Neuro: AAO x 3, speech clear and appropriate, strength intact bilaterally 5/5, sensation intact and equal all extremities and dermatomes, no pronator drift, ambulation without gait abnormality Chest: equal rise and fall of the chest, no accessory muscle use, no heaves or thrills, decreased in bases with end expiratory wheeze, cough non-productive Cardiac: Regular rate and rhythm, telemetry reviewed- NSR, skin warm dry, cap refill <3 seconds, peripheral pulses +2 no JVD, no murmur, no edema GI: NABS x 4 quadrants, soft, nontender to palpation, no rebound, guarding or tenderness : Spontaneously voiding, no pain, no CVA tenderness, Extremities: Normal inspection, no peripheral edema or erythema, calfs nontender to palpation Psych: Normal mood and affect Skin: no rash or erythema Results & Data Results & Data Vital Signs (Past 12 Hours) Vital Signs Temp Pulse Pulse Resp BP BP Pulse Ox 03/02/23 18:17 36.6 C 65 19 150/65 H 95 03/02/23 15:39 37 C 59 L 22 173/76 H 94 03/02/23 13:29 159/76 H 03/02/23 11:34 189/84 H 03/02/23 11:31 58 L 20 96 03/02/23 11:38 36.8 C 03/02/23 08:00 03/02/23 08:00 65 O2 Del Method 03/02/23 18:17 Room Air 03/02/23 15:39 Room Air 03/02/23 13:29 03/02/23 11:34 03/02/23 11:31 Room Air 03/02/23 11:38 03/02/23 08:00 Room Air 03/02/23 08:00 Laboratory Results Abnormal lab results 03/01/23 03/02/23 03/02/23 Range/Units 06:08 00:52 04:38 WBC 20.01 H (4.8-10.8) K/ul RBC 5.42 H (4.20-5.40) M/uL MCV 72.5 L (80.0-100.0) fL RDW Std Deviation 34.6 L (36.4-46.3) fL MPV 9.3 L (9.4-12.4) fL Neut # (Auto) 14.93 H (1.40-6.50) K/uL [place] # (Auto) 2.30 H (0.11-0.59) K/uL Immature Gran # (Auto) 0.23 H (0.01-0.20) K/uL Sodium 115 L* (136-145) mmol/L Chloride 79 L (98-107) mmol/L BUN 26 H (6-23) mg/dl Creatinine (0.6-1.2) mg/dl BUN/Creatinine Ratio 38.8 H (10-20) Glucose (70-99(Fasting)) mg/dl POC Glucose (70-99) mg/dl Hemoglobin A1c 8.0 H (4.5-5.6) % Osmolality (280-300) mOsm/kg Calcium 7.8 L (8.6-10.3) mg/dl Total Creatine Kinase (26-192) U/L Troponin I High Sens (0-14) pg/ml 03/02/23 03/02/23 03/02/23 Range/Units 04:38 08:20 10:24 WBC (4.8-10.8) K/ul RBC (4.20-5.40) M/uL MCV (80.0-100.0) fL RDW Std Deviation (36.4-46.3) fL MPV (9.4-12.4) fL Neut # (Auto) (1.40-6.50) K/uL [place] # (Auto) (0.11-0.59) K/uL Immature Gran # (Auto) (0.01-0.20) K/uL Sodium 114 L* 115 L* (136-145) mmol/L Chloride 78 L 78 L (98-107) mmol/L BUN 25 H 25 H (6-23) mg/dl Creatinine 0.51 L (0.6-1.2) mg/dl BUN/Creatinine Ratio 41.0 H 49.0 H (10-20) Glucose (70-99(Fasting)) mg/dl POC Glucose 155 H (70-99) mg/dl Hemoglobin A1c (4.5-5.6) % Osmolality (280-300) mOsm/kg Calcium 8.1 L 7.8 L (8.6-10.3) mg/dl Total Creatine Kinase (26-192) U/L Troponin I High Sens (0-14) pg/ml 03/02/23 03/02/23 03/02/23 Range/Units 13:11 15:53 18:01 WBC (4.8-10.8) K/ul RBC (4.20-5.40) M/uL MCV (80.0-100.0) fL RDW Std Deviation (36.4-46.3) fL MPV (9.4-12.4) fL Neut # (Auto) (1.40-6.50) K/uL [place] # (Auto) (0.11-0.59) K/uL Immature Gran # (Auto) (0.01-0.20) K/uL Sodium 115 L* 110 L* (136-145) mmol/L Chloride 77 L 75 L (98-107) mmol/L BUN 26 H 29 H (6-23) mg/dl Creatinine 0.59 L (0.6-1.2) mg/dl BUN/Creatinine Ratio 44.1 H 42.6 H (10-20) Glucose 130 H 167 H (70-99(Fasting)) mg/dl POC Glucose 136 H (70-99) mg/dl Hemoglobin A1c (4.5-5.6) % Osmolality (280-300) mOsm/kg Calcium 8.3 L 8.2 L (8.6-10.3) mg/dl Total Creatine Kinase (26-192) U/L Troponin I High Sens (0-14) pg/ml 03/02/23 03/02/23 03/02/23 Range/Units 18:57 19:24 19:24 WBC (4.8-10.8) K/ul RBC (4.20-5.40) M/uL MCV (80.0-100.0) fL RDW Std Deviation (36.4-46.3) fL MPV (9.4-12.4) fL Neut # (Auto) (1.40-6.50) K/uL [place] # (Auto) (0.11-0.59) K/uL Immature Gran # (Auto) (0.01-0.20) K/uL Sodium 113 L* (136-145) mmol/L Chloride (98-107) mmol/L BUN (6-23) mg/dl Creatinine (0.6-1.2) mg/dl BUN/Creatinine Ratio (10-20) Glucose (70-99(Fasting)) mg/dl POC Glucose (70-99) mg/dl Hemoglobin A1c (4.5-5.6) % Osmolality 247 L (280-300) mOsm/kg Calcium (8.6-10.3) mg/dl Total Creatine Kinase 289 H (26-192) U/L Troponin I High Sens 21.6 H (0-14) pg/ml 03/02/23 Range/Units 19:24 WBC (4.8-10.8) K/ul RBC (4.20-5.40) M/uL MCV (80.0-100.0) fL RDW Std Deviation (36.4-46.3) fL MPV (9.4-12.4) fL Neut # (Auto) (1.40-6.50) K/uL [place] # (Auto) (0.11-0.59) K/uL Immature Gran # (Auto) (0.01-0.20) K/uL Sodium (136-145) mmol/L Chloride (98-107) mmol/L BUN (6-23) mg/dl Creatinine (0.6-1.2) mg/dl BUN/Creatinine Ratio (10-20) Glucose (70-99(Fasting)) mg/dl POC Glucose 131 H (70-99) mg/dl Hemoglobin A1c (4.5-5.6) % Osmolality (280-300) mOsm/kg Calcium (8.6-10.3) mg/dl Total Creatine Kinase (26-192) U/L Troponin I High Sens (0-14) pg/ml Diagnostic Findings Chest X-Ray 02/28/23 12:39 XR chest 1V portable CLINICAL HISTORY: Dyspnea TECHNIQUE: Single frontal radiograph of the chest was obtained. Comparison: None available at the time of this dictation. FINDINGS: No lines and tubes are seen. Cardiomegaly is noted. The aortic arch is calcified. The lungs are clear. No evidence of pleural effusion or pneumothorax. IMPRESSION: No acute chest disease. Cardiomegaly is noted. No evidence of pneumonia. ACT 112: Negative or not required by law. Electronically signed by: Antonio Carlos M.D. 02/28/2023 12:55 PM Medications Administered Acetaminophen (Acetaminophen 500 Mg Tab) 1,000 mg PO Q8H PRN PRN Reason: Pain Stop: 04/01/23 07:25 Last Admin: 03/02/23 16:08 Dose: 1,000 mg Documented By: Admin: 03/02/23 08:13 Dose: 1,000 mg Documented By: GPF Albuterol (Albuterol 0.5% Neb Soln 2.5 Mg/0.5 Ml Vial) 2.5 mg NEB Q6R PRN; Protocol PRN Reason: wheeze, cough Stop: 03/30/23 20:14 Last Admin: 03/01/23 09:38 Dose: 2.5 mg Documented By: Admin: 03/01/23 01:26 Dose: 2.5 mg Documented By: SAMANTHAF Amlodipine Besylate (Amlodipine Besylate 5 Mg Tab) 5 mg PO QAM [facility] Stop: 04/01/23 11:59 Last Admin: 03/02/23 13:18 Dose: 5 mg Documented By: GPF Aspirin (Aspirin 81 Mg Ectab) 81 mg PO DAILY [facility] Stop: 03/31/23 08:59 Last Admin: 03/02/23 08:14 Dose: 81 mg Documented By: Admin: 03/01/23 08:10 Dose: 81 mg Documented By: TRINIDAD Atenolol (Atenolol 50 Mg Tablet) 50 mg PO QAM [facility] Stop: 03/31/23 08:59 Last Admin: 03/02/23 08:14 Dose: 50 mg Documented By: Admin: 03/01/23 07:49 Dose: 50 mg Documented By: TRINIDAD Atorvastatin Calcium (Atorvastatin 10 Mg Tab) 10 mg PO DAILY [facility] Stop: 03/31/23 08:59 Last Admin: 03/02/23 08:13 Dose: 10 mg Documented By: Admin: 03/01/23 08:10 Dose: 10 mg Documented By: TRINIDAD Enoxaparin Sodium (Enoxaparin Inj 40 Mg/0.4 Ml Syr) 40 mg SQ Q24H [facility] Stop: 03/30/23 20:59 Last Admin: 03/02/23 21:50 Dose: 40 mg Documented By: Admin: 03/01/23 20:38 Dose: 40 mg Documented By: Admin: 02/28/23 21:02 Dose: 40 mg Documented By: GREG Insulin Aspart (Insulin Aspart Per Unit Charge) 0 units SC ACHS [facility] Stop: 03/31/23 07:29 Last Admin: 03/02/23 21:50 Dose: Not Given Documented By: JERI Co-signed By: NABIL Admin: 03/02/23 16:35 Dose: 3 units Documented By: JENNIFER Co-signed By: REBA Admin: 03/02/23 12:22 Dose: 1 units Documented By: JENNIFER Co-signed By: ROSARIO Admin: 03/02/23 07:43 Dose: Not Given Documented By: Admin: 03/01/23 20:39 Dose: Not Given Documented By: GREG Co-signed By: NABIL Admin: 03/01/23 17:27 Dose: 1 units Documented By: TRINIDAD Co-signed By: MELVINA Admin: 03/01/23 12:27 Dose: 15 units Documented By: TRINIDAD Co-signed By: [id number] Admin: 03/01/23 07:49 Dose: 7 units Documented By: TRINIDAD Co-signed By: SOBEIDA Insulin Glargine (Lantus Per Unit Charge) 0 units SQ DAILY@1630 [facility]ER[facility]; Protocol Stop: 04/01/23 16:29 Last Admin: 03/02/23 16:35 Dose: Not Given Documented By: JOSHF Lidocaine (Lidocaine 5% 1 Patch) 1 patch TD QAM [facility] Stop: 04/01/23 20:59 Last Admin: 03/02/23 21:09 Dose: 1 patch Documented By: NABIL Menthol (Cough Drop (Sugar Free) Cecy 24 Cecy/1 Box) 1 cecy BUCCAL QID PRN PRN Reason: Sore Throat Stop: 03/30/23 20:14 Last Admin: 03/02/23 16:08 Dose: 24 cecy Documented By: JENNIFER Miscellaneous (Remove Lidoderm Patch) 1 each N/A DAILY@2100 [facility] Stop: 04/01/23 20:59 Last Admin: 03/02/23 21:16 Dose: Not Given Documented By: NABIL Polyethylene Glycol (Polyethylene (Miralax) 17 Gm Pack) 17 gm PO DAILY [facility] Stop: 03/31/23 11:29 Last Admin: 03/02/23 08:14 Dose: 17 gm Documented By: Admin: 03/01/23 12:18 Dose: 17 gm Documented By: TRINDIAD Potassium Chloride (Potassium Chloride Crtab 20 Meq Tabcr) 40 meq PO BID [facility] Stop: 04/01/23 20:59 Last Admin: 03/02/23 21:50 Dose: 40 meq Documented By: JERI Vitamin B Complex (Vitamin B Complex Tab) 1 tab PO DAILY [facility] Stop: 03/31/23 08:59 Last Admin: 03/02/23 08:14 Dose: 1 tab Documented By: Admin: 03/01/23 08:10 Dose: 1 tab Documented By: TRINIDAD Discontinued Medications Albuterol (Albut/Ipratrop 3mg/0.5mg Neb 3 Ml Vial) 3 ml INH NOW STA Stop: 02/28/23 12:40 Last Admin: 02/28/23 13:23 Dose: 3 ml Documented By: KENDY Furosemide (Furosemide 40 Mg/4 Ml Vial) 40 mg IV BID17 [facility]ER[facility] Stop: 04/01/23 17:14 Last Admin: 03/02/23 17:51 Dose: 40 mg Documented By: JENNIFER Hydralazine HCl (Hydralazine Hcl 20 Mg/Ml Vial) 5 mg IV NOW ONE Stop: 02/28/23 21:15 Last Admin: 02/28/23 22:37 Dose: Not Given Documented By: GREG Sodium Chloride (Nss) 500 mls @ 999 mls/hr IV .Q31M STA Stop: 02/28/23 13:09 Last Infusion: 02/28/23 14:23 Dose: 0 mls/hr Documented By: Admin: 02/28/23 13:23 Dose: 999 mls/hr Documented By: KENDY Cefepime HCl (Maxipime) 2,000 mg in 20 mls @ 5 mls/min IV NOW STA; Protocol Stop: 02/28/23 12:42 Last Admin: 02/28/23 14:51 Dose: 5 mls/min Documented By: MILES Sodium Chloride (Nss 1000ml) 500 mls @ 999 mls/hr IV .Q31M ONE Stop: 02/28/23 15:23 Last Infusion: 02/28/23 16:00 Dose: 0 mls/hr Documented By: Admin: 02/28/23 15:09 Dose: 999 mls/hr Documented By: AP Dextrose (D5w) 1,000 mls @ 100 mls/hr IV .Q10H [facility] Stop: 03/30/23 18:14 Last Admin: 02/28/23 22:37 Dose: Not Given Documented By: TP Sodium Chloride (Nss 1000ml) 500 mls @ 999 mls/hr IV .Q31M ONE Stop: 02/28/23 22:03 Last Infusion: 02/28/23 22:19 Dose: 0 mls/hr Documented By: Admin: 02/28/23 21:48 Dose: 999 mls/hr Documented By: VK Sodium Chloride (Nss 1000ml) 500 mls @ 999 mls/hr IV .Q31M ONE Stop: 03/01/23 05:08 Last Infusion: 03/01/23 05:09 Dose: 0 mls/hr Documented By: Admin: 03/01/23 04:38 Dose: 999 mls/hr Documented By: TP Magnesium Sulfate/Dextrose (Magnesium Sulfate / D5w) 1 gm in 100 mls @ 50 mls/hr IV Q2H [facility] Stop: 03/01/23 15:14 Last Infusion: 03/01/23 16:35 Dose: 0 mls/hr Documented By: Admin: 03/01/23 14:31 Dose: 50 mls/hr Documented By: Infusion: 03/01/23 14:16 Dose: 50 mls/hr Documented By: Admin: 03/01/23 12:16 Dose: 50 mls/hr Documented By: Infusion: 03/01/23 11:57 Dose: 50 mls/hr Documented By: Admin: 03/01/23 09:57 Dose: 50 mls/hr Documented By: Infusion: 03/01/23 09:41 Dose: 50 mls/hr Documented By: Admin: 03/01/23 07:41 Dose: 50 mls/hr Documented By: LDS Sodium Chloride (Nss 1000ml) 1,000 mls @ 80 mls/hr IV .[id number] [facility] Stop: 03/02/23 04:14 Last Infusion: 03/02/23 04:50 Dose: 0 mls/hr Documented By: Admin: 03/01/23 16:20 Dose: 80 mls/hr Documented By: TRINIDAD Insulin Aspart (Insulin Aspart Per Unit Charge) 0 units SC ACHS [facility] Stop: 03/30/23 20:59 Last Admin: 02/28/23 21:01 Dose: 6 units Documented By: GREG Co-signed By: BROCK Insulin Aspart (Insulin Aspart Per Unit Charge) 0 units SC 0000,0400 [facility] Stop: 03/01/23 04:01 Last Admin: 03/01/23 04:38 Dose: 4 units Documented By: GREG Co-signed By: BROCK Admin: 03/01/23 00:00 Dose: 4 units Documented By: GREG Co-signed By: BROCK Insulin Glargine (Lantus Per Unit Charge) 10 units SQ 2100 ONE Stop: 02/28/23 21:01 Last Admin: 02/28/23 21:05 Dose: 10 units Documented By: GREG Co-signed By: BROCK Insulin Glargine (Lantus Per Unit Charge) 10 units SQ DAILY [facility]; Protocol Stop: 03/31/23 08:59 Last Admin: 03/01/23 08:16 Dose: 10 units Documented By: TRINIDAD Co-signed By: MELVINA Insulin Glargine (Lantus Per Unit Charge) 0 units SQ HS [facility]; Protocol Stop: 03/31/23 20:59 Last Admin: 03/01/23 20:39 Dose: Not Given Documented By: GREG Insulin Glargine (Lantus Per Unit Charge) 15 units SQ ONE ONE Stop: 03/01/23 12:01 Last Admin: 03/01/23 12:28 Dose: 15 units Documented By: TRINIDAD Co-signed By: [id number] Ketorolac Tromethamine (Ketorolac Tromethamine 15 Mg/Ml Vial) 15 mg IV Q6H PRN PRN Reason: Pain Stop: 03/07/23 13:01 Last Admin: 03/02/23 13:18 Dose: 15 mg Documented By: GPF Methylprednisolone (Methylprednisolone 125 Mg/2 Ml Vial) 60 mg IV NOW STA Stop: 02/28/23 12:40 Last Admin: 02/28/23 13:23 Dose: 60 mg Documented By: KENDY Miscellaneous (Icu Electrolyte Replacement Protocol) 1 each N/A BID@06,18 BERNA; Protocol Stop: 03/08/23 05:59 Last Admin: 03/02/23 06:02 Dose: Not Given Documented By: Admin: 03/01/23 11:28 Dose: Not Given Documented By: Admin: 03/01/23 07:41 Dose: 1 each Documented By: TRINIDAD Miscellaneous (Icu Protocol For Hyperglycemia) 1 each N/A ACHS [facility] Stop: 03/02/23 20:59 Last Admin: 02/28/23 21:02 Dose: 1 each Documented By: TP Morphine Sulfate (Morphine Sulfate 2 Mg/Ml Carp) 2 mg IV NOW STA Stop: 03/02/23 21:13 Last Admin: 03/02/23 21:17 Dose: 2 mg Documented By: LLP Potassium Chloride (Potassium Chloride Crtab 20 Meq Tabcr) 40 meq PO NOW STA Stop: 02/28/23 20:16 Last Admin: 02/28/23 20:44 Dose: 40 meq Documented By: TP Potassium Chloride (Potassium Chloride 20 Meq/15 Ml Udc) 60 meq PO NOW STA Stop: 03/01/23 08:08 Last Admin: 03/01/23 08:13 Dose: 60 meq Documented By: TRINIDAD ECG Additional Comments: Normal sinus rhythm Normal ECG When compared with ECG of 28-FEB-2023 12:21, No significant change was found Coding Level of Care Code 38681 CRITICAL CARE 1ST 30-74M Diagnoses Hyponatremia E87.1 History of CVA (cerebrovascular accident) Z86.73 Poorly-controlled hypertension I10 Viral respiratory infection J98.8; B97.89 Parainfluenza infection B34.8 Obesity (BMI 30.0-34.9) E66.9 Hyperlipidemia E78.5 Hypertension I10
[2023-03-02 19:59] LABS: Sodium 113 mmol/L (136-145)
[2023-03-02] MEDS: LIDOCAINE 5% 1 PATCH TD SCH (21:09)
[2023-03-02] MEDS ORDERED: MoRPHine SULFATE 2 MG/ML CARP IV STA (21:12)
[2023-03-02] MEDS: ENOXAPARIN INJ 40 MG/0.4 ML SYR SQ SCH (21:50)
[2023-03-02] MEDS: POTASSIUM CHLORIDE CRTAB 20 MEQ TABCR PO SCH (21:50)
--- NOTE | 2023-03-02 22:07 | Procedure Note ---
Procedure Note Date of Service March 02, 2023 Note ARTERIAL LINE PROCEDURE NOTE: Procedure: Arterial Line Placement- Modifier- aborted secondary to unable to maintain catheter and patient discomfort Proceduralist: Peña CORDOVA ([facility]) Attending: Dr. OSULLIVAN Indication: Frequent blood draws Anesthesia:[x]Lidocaine 1% Consent was obtained as delegated to me by Dr. 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 Indication, risks, and benefits were explained at length. A time-out was completed verifying correct patient, procedure, site, positioning, Allens test was performed to ensure adequate perfusion. Patients RIGHT RADIAL wrist was prepped and draped in the usual sterile fashion. Ultrasound guidance was used to aid needle placement. A 20g Arrow arterial line was introduced into the RIGHT RADIAL artery. Flash of blood was noted in catheter- wire was advanced and Catheter was threaded, and the needle was removed. There was no return of blood noted- catheter was withdrawn with slugghis flow noted, the wire apparatus was rethreaded without resistance. The catheter was then advacned and remained without blood dolores. This was attempted x2 attempts and unable to maintain blood flow. Patient was complaining of back pain with positioning and moving around during procedure. Right side was aborted. Will focus on pain control and will obtain arterial sample for blood. Blood Loss: Minimal Complications: failed right radial Procedural Ultrasound Guidance: Procedure Date: 03/02/23 Indication: Frequent Blood Draws Proceduralist: Peña Everett Attending: Dr. OSULLIVAN Artery Identified: YES Line confirmed in Artery with ultrasound: YES Complications: NONE Patient tolerated procedure: WELL Coding
[2023-03-02] MEDS ORDERED: POTASSIUM CHLORIDE 20 MEQ/15 ML UDC PO STA (23:15)
[2023-03-03 00:30] LABS: Anion Gap 7 (3-11); BUN Creatinine Ratio 41.8 (10-20); Blood Urea Nitrogen 28 mg/dl (6-23); C Reactive Protein < 0.50 mg/dl (0-0.5); Carbon Dioxide 34 mmol/L (21-32); Chloride 73 mmol/L (98-107); Creatinine Clr Calc Pharmacy 67.8 ml/min; Est GFR (African American) 95.5 ml/min; Est GFR (Non-African American) 82.4 ml/min; Glucose 102 mg/dl (70-99(Fasting)); Potassium 3.5 mmol/L (3.5-5.1)
[2023-03-03 00:31] LABS: Sodium 114 mmol/L (136-145)
[2023-03-03 04:49] LABS: Basophils # (auto) 0.02 K/uL (0-0.2); Basophils % (auto) 0.1 %; Eosinophils # (auto) 0.05 K/uL (0-0.50); Eosinophils % (auto) 0.3 %; Hemoglobin 12.3 g/dl (12.0-16.0); Immature Granulocytes # (auto) 0.14 K/uL (0.01-0.20); Immature Granulocytes % (auto) 0.9 %; Lymphocytes # (auto) 2.33 K/uL (1.2-3.4); Lymphocytes % (auto) 14.3 %; Mean Corpuscular Hemoglobin 25.9 pg (25.0-34.0); Mean Corpuscular Hgb Conc 36.2 g/dL (32.0-36.0); Mean Corpuscular Volume 71.6 fL (80.0-100.0); Mean Platelet Volume 9.2 fL (9.4-12.4); Monocytes # (auto) 1.35 K/uL (0.11-0.59); Monocytes % (auto) 8.3 %; Neutrophils # (auto) 12.39 K/uL (1.40-6.50); Neutrophils % (auto) 76.1 %; Platelet Count 306 K/uL (130-400); RDW Coefficient of Variation 13.6 % (11.5-14.5); RDW Standard Deviation 34.7 fL (36.4-46.3); Red Blood Count 4.75 M/uL (4.20-5.40); White Blood Count 16.28 K/ul (4.8-10.8)
[2023-03-03 05:10] LABS: BUN Creatinine Ratio 45.5 (10-20); Calcium 7.9 mg/dl (8.6-10.3); Creatinine Clr Calc Pharmacy 68.8 ml/min; Est GFR (Non-African American) 82.8 ml/min; Potassium 4.2 mmol/L (3.5-5.1)
[2023-03-03] MEDS ORDERED: SODIUM CHLORIDE 0.9% 1000ML 500 ML IV ONE (05:18)
[2023-03-03] MEDS: ACETAMINOPHEN 500 MG TAB PO PRN (05:18)
--- NOTE | 2023-03-03 07:39 | Critical Care Progress Note ---
Date of Service March 03, 2023 Assessment & Plan (1) Viral respiratory infection: (2) Hyponatremia: (3) History of CVA (cerebrovascular accident): (4) Poorly-controlled hypertension: (5) Obesity (BMI 30.0-34.9): (6) Hyperlipidemia: Plan Impression: 82 YOF with severe asymptomatic hyponatremia. Appears consistent with SIADH ,likely hypovolemic from diuretic hypoosmolar hyponatremia. She has recurrent CP and back pain. Has been on steroids for bronchitis/parainfluenza. 24 hour events: Patient had a drop in her sodium. She was transferred to the ICU for closer monitoring. She remains asymptomatic with the exception of complaints of back and chest pain. An echocardiogram is pending. Recommendation Neuro -prior history of CVA. Unclear if this could be driving her SIADH in conjunction with her diuretic. She is relatively asymptomatic currently with the exception of some chest and back discomfort. Cardiac -hypertension: Continue amlodipine and atenolol. Increase amlodipine to 10 mg daily. Given her diastolic dysfunction noted previously, target blood pressure should be less than 135/75. Respiratory -parainfluenza. No need for antimicrobial agents or steroids. Given her complaints of chest and back discomfort in the setting of SIADH, will await echocardiogram and order CT of the chest with contrast. GI - No acute needs - regular diet RENAL/LYTES -persistent hyponatremia. She appears to be stabilized currently. Continue free water restriction and will defer additional agents including salt tabs or urea to nephrology. Continue serial BMPs. We will check cortisol although this may be adversely affected by the use of prednisone previously. - No acute needs ENDO - TSH undetectable with free T4 elevated consistent with probable hyperthyroidism. Difficult to assess in the setting of an acute illness. Follow-up with endocrinology in the outpatient setting. Await random cortisol. If continues to have issues, may consider transition from atenolol to propranolol. HEME - No acute needs ID -no indication for additional antimicrobial agents. LINES/IV ACCESS - PIV Continue use of these lines DVT PROPHYLAXIS - Lovenox 40mg subq daily, SCDS DISPO-patient sodium levels appear to be back to normal. She appears to be appropriate to transfer back to the floor. Will discuss with hospitalist this morning. CC will sign off. Admission and Anticipated Discharge Date Admission Date: February 28, 2023 Subjective Patient seen and examined. EMR reviewed. Discussed on multidisciplinary rounds and with bedside critical care nurse. Patient continues to complain of some back and chest discomfort this morning. No nausea or vomiting. No new neurological complaints. She otherwise feels about the same. She is not had any significant lower extremity edema Review of Systems Review of Systems: All systems reviewed & are unremarkable except as noted in Subjective Physical Exam Constitutional: WD/WN, vitals as above Neck: trachea midline, no thyromegaly Respiratory: normal respiratory effort, lungs clear to auscultation Cardiovascular: RRR, no murmur, no edema Gastrointestinal (Abdomen): normal bowel sounds, soft, nontender, no hepatosplenomegaly Musculoskeletal: Extremities: extremities normal to inspection Skin: no rashes, warm and dry Neurologic: Nonfocal exam Lymphatic: no cervical lymphadenopathy Results & Data Results & Data Vital Signs (Past 12 Hours) Vital Signs Temp Pulse Pulse Resp BP BP Pulse Ox 03/03/23 06:01 150/63 H 03/03/23 06:01 59 L 22 03/03/23 06:00 63 24 03/03/23 04:01 152/67 H 03/03/23 04:01 58 L 20 95 03/03/23 04:00 56 L 15 97 03/03/23 02:00 57 L 15 03/03/23 02:00 104/63 03/03/23 00:00 56 L 17 03/02/23 23:23 157/75 H 03/02/23 23:23 59 L 17 89 L 03/02/23 22:01 120/80 03/02/23 22:01 59 L 19 03/02/23 22:00 60 13 03/02/23 21:46 57 L 17 98 03/02/23 21:46 134/83 03/02/23 20:00 61 19 03/02/23 21:58 36.6 C 63 19 134/83 96 O2 Del Method 03/03/23 06:01 03/03/23 06:01 03/03/23 06:00 03/03/23 04:01 03/03/23 04:01 03/03/23 04:00 03/03/23 02:00 03/03/23 02:00 03/03/23 00:00 03/02/23 23:23 03/02/23 23:23 03/02/23 22:01 03/02/23 22:01 03/02/23 22:00 03/02/23 21:46 03/02/23 21:46 03/02/23 20:00 03/02/23 21:58 Room Air Critical Care Results & Data Vital Signs (Past 12 Hours) Vital Signs Temp Pulse Pulse Resp BP BP Pulse Ox 03/03/23 06:01 150/63 H 03/03/23 06:01 59 L 22 03/03/23 06:00 63 24 03/03/23 04:01 152/67 H 03/03/23 04:01 58 L 20 95 03/03/23 04:00 56 L 15 97 03/03/23 02:00 57 L 15 03/03/23 02:00 104/63 03/03/23 00:00 56 L 17 03/02/23 23:23 157/75 H 03/02/23 23:23 59 L 17 89 L 03/02/23 22:01 120/80 03/02/23 22:01 59 L 19 03/02/23 22:00 60 13 03/02/23 21:46 57 L 17 98 03/02/23 21:46 134/83 03/02/23 20:00 61 19 03/02/23 21:58 36.6 C 63 19 134/83 96 O2 Del Method 03/03/23 06:01 03/03/23 06:01 03/03/23 06:00 03/03/23 04:01 03/03/23 04:01 03/03/23 04:00 03/03/23 02:00 03/03/23 02:00 03/03/23 00:00 03/02/23 23:23 03/02/23 23:23 03/02/23 22:01 03/02/23 22:01 03/02/23 22:00 03/02/23 21:46 03/02/23 21:46 03/02/23 20:00 03/02/23 21:58 Room Air Lab & Micro Results (Past 24 Hours) RBC 4.75 M/uL (4.20-5.40) 03/03/23 WBC 16.28 K/ul (4.8-10.8) H 03/03/23 Hgb 12.3 g/dl (12.0-16.0) 03/03/23 Hct 34.0 % (37.0-47.0) L 03/03/23 MCV 71.6 fL (80.0-100.0) L 03/03/23 MCH 25.9 pg (25.0-34.0) 03/03/23 MCHC 36.2 g/dL (32.0-36.0) H 03/03/23 RDW Standard Deviation 34.7 fL (36.4-46.3) L 03/03/23 RDW Coefficient of Variation 13.6 % (11.5-14.5) 03/03/23 Plt Count 306 K/uL (130-400) 03/03/23 MPV 9.2 fL (9.4-12.4) L 03/03/23 Neutrophils (%) (Auto) 76.1 % 03/03/23 Lymphocytes (%) (Auto) 14.3 % 03/03/23 Monocytes # (Auto) 1.35 K/uL (0.11-0.59) H 03/03/23 Eosinophils # (Auto) 0.05 K/uL (0-0.50) 03/03/23 Immature Granulocyte % (Auto) 0.9 % 03/03/23 Neutrophils # (Auto) 12.39 K/uL (1.40-6.50) H 03/03/23 Lymphocytes # (Auto) 2.33 K/uL (1.2-3.4) 03/03/23 Monocytes # (Auto) 1.35 K/uL (0.11-0.59) H 03/03/23 Eosinophils # (Auto) 0.05 K/uL (0-0.50) 03/03/23 Basophils # (Auto) 0.02 K/uL (0-0.2) 03/03/23 Immature Granulocyte # (Auto) 0.14 K/uL (0.01-0.20) 3 Na 114 mmol/L (136-145) L* 03/03/23 K 4.2 mmol/L (3.5-5.1) 03/03/23 Cl 77 mmol/L (98-107) L 03/03/23 CO2 32 mmol/L (21-32) 03/03/23 Anion Gap 5 (3-11) 03/03/23 BUN 30 mg/dl (6-23) H 03/03/23 Creatinine 0.66 mg/dl (0.6-1.2) 03/03/23 Estimated GFR ( Amer) 96.0 ml/min 03/03/23 Estimated GFR (Non-Af Amer) 82.8 ml/min 03/03/23 BUN/Creatinine Ratio 45.5 (10-20) H 03/03/23 Glu 159 mg/dl (70-99(Fasting)) H 03/03/23 Ca 7.9 mg/dl (8.6-10.3) L 03/03/23 Mg 2.0 mg/dl (1.7-2.4) 03/03/23 04:32 Calcium Level 7.9 mg/dl (8.6-10.3) L 03/03/23 04:32 Microbiology 02/28/23 14:14 Aerobic Blood Culture - Preliminary Blood No growth in Aerobic bottle after 48 hours. Anaerobic Blood Culture - Preliminary No growth in Anaerobic bottle after 48 hours. 02/28/23 13:00 Aerobic Blood Culture - Preliminary Blood No growth in Aerobic bottle after 48 hours. Anaerobic Blood Culture - Preliminary No growth in Anaerobic bottle after 48 hours. I & O Totals 24 Hours 03/02/23 03/03/23 03/04/23 06:59 06:59 06:59 Intake Total 1640 / 1640 460 / 460 Output Total 151 / 151 300 / 300 Balance 1489 / 1489 160 / 160 Cumulative 02/28/23 12:02 thru 03/02/23 17:24 Intake Total 4460 Output Total 751 Balance 3709 RT Ventilator Mngmt (Last Documented) Ventilator Ordered Settings Respiratory Rate 22 03/03/23 06:01 Ventilator - PT Measurements Respiratory Rate 22 Coding Level of Care Code 12313 SUB INP/OBS CARE 3/50MIN Diagnoses Viral respiratory infection J98.8; B97.89 Hyponatremia E87.1 History of CVA (cerebrovascular accident) Z86.73 Poorly-controlled hypertension I10 Obesity (BMI 30.0-34.9) E66.9 Hyperlipidemia E78.5
[2023-03-03] MEDS: ATENOLOL 50 MG TABLET PO SCH (08:19)
[2023-03-03] MEDS: LIDOCAINE 5% 1 PATCH TD SCH (08:19)
[2023-03-03] MEDS: ATORVASTATIN 10 MG TAB PO SCH (08:19)
[2023-03-03] MEDS: INSULIN ASPART PER UNIT CHARGE SC SCH ×4 (08:19→20:22)
[2023-03-03] MEDS: POLYETHYLENE (MIRALAX) 17 GM PACK PO SCH (08:19)
[2023-03-03] MEDS: ASPIRIN 81 MG ECTAB PO SCH (08:20)
[2023-03-03] MEDS: VITAMIN B COMPLEX TAB PO SCH (08:20)
[2023-03-03] MEDS: amLODIPine BESYLATE 5 MG TAB PO SCH (08:20)
[2023-03-03] MEDS: LANTUS PER UNIT CHARGE SQ SCH (08:24)
[2023-03-03] MEDS: POTASSIUM CHLORIDE CRTAB 20 MEQ TABCR PO SCH ×2 (08:24→20:23)
--- NOTE | 2023-03-03 08:58 | Nephrology Progress Note ---
Date of Service March 03, 2023 Assessment & Plan (1) Hyponatremia: Plan: - chlorthalidone induced on the background on poor solute intake and respiratory virus. that said, she has responded so far better to saline than to any other agent, not c/w SIADH - like diagnosis. - Target Sodium max 120 for AM tomorrow - Rate of correction has been on target, even slow - Q4h bmp stat >> strongly recommend better access for this pt since we are having trouble getting timely labs - Continue with 1.2 lit total fluid restriction > protein shakes do not count toward fluid limit and should be encouraged >>daily standing weight, I/O ordered >>order in to record po intake >> trying to gauge how well /poorly she's eating > encourage higher protein intake - Replace K to keep levels > 4 and Magnesium > 2.0 ->>> avoid nsaids - f/u pending chest CT and echocardiogram >>will restart lasix 40 mg IV bid 17, first dose today and standing potassium order Patient has every 4 basic metabolic panels ordered stat. 7-1/2 hours after last draw, no interval labs. She needs a reliable way to get every 4 hours stat labs for the next several days. RN plans to approach IV team about ultrasound-guided IV. If this does not work recommend PICC or other access. Will discuss with Dr. Vang (2) Poorly-controlled hypertension: Plan: -lasix as above -continue atenolol and just upped amlodipine >may need standing hydralazine -f/u pending TTE (3) Viral respiratory infection: Plan: -- as per primary. Admission and Anticipated Discharge Date Admission Date: February 28, 2023 Subjective abrupt sodium drop yesterday 115 > 110 w/ nonspecific sx of more generalized weakness and fatigue though was ambulating w/ asst to commode. had nsaid dose yesterday as well as lasix x 1. appreciate critical care assistance overnight with monitoring repeat labs (we discussed a variety of interventions depending on repeat levels) as well as attempt at more permanent access which was aborted d/t pt discomfort. now back to tele status. she had 500 mL NS overnight and maintained her sodium level at 114. Physical Exam Constitutional: well developed, well nourished and + acute distress Eyes: EOM intact bilaterally ENMT: Ears: no external ear abnormality Nose: no external nose abnormality Mouth: + dry oral mucous membranes Neck: no nuchal rigidity Respiratory: normal respiratory effort Auscultation: + diminished lung sounds Cardiovascular: RRR, no murmur, no edema Gastrointestinal (Abdomen): Inspection/Auscultation: normal bowel sounds Percussion/Palpation: abdomen soft; abdomen nontender Musculoskeletal: Extremities: strength 5/5 throughout Skin: no rashes, warm and dry Results & Data Vital Signs (Past 12 Hours) Vital Signs Temp Pulse Pulse Pulse Resp BP BP 03/03/23 07:00 36.4 C L 58 L 20 167/74 H 03/03/23 06:01 150/63 H 03/03/23 06:01 59 L 22 03/03/23 06:00 63 24 03/03/23 04:01 152/67 H 03/03/23 04:01 58 L 20 03/03/23 04:00 56 L 15 03/03/23 02:00 57 L 15 03/03/23 02:00 104/63 03/03/23 00:00 56 L 17 03/02/23 23:23 157/75 H 03/02/23 23:23 59 L 17 03/02/23 22:01 120/80 03/02/23 22:01 59 L 19 03/02/23 22:00 60 13 03/02/23 21:46 57 L 17 03/02/23 21:46 134/83 03/02/23 21:58 36.6 C 63 19 134/83 Pulse Ox O2 Del Method 03/03/23 07:00 96 Room Air 03/03/23 06:01 03/03/23 06:01 03/03/23 06:00 03/03/23 04:01 03/03/23 04:01 95 03/03/23 04:00 97 03/03/23 02:00 03/03/23 02:00 03/03/23 00:00 03/02/23 23:23 03/02/23 23:23 89 L 03/02/23 22:01 03/02/23 22:01 03/02/23 22:00 03/02/23 21:46 98 03/02/23 21:46 03/02/23 21:58 96 Room Air Laboratory Results 03/03/23 04:32 03/03/23 04:32
[2023-03-03] MEDS ORDERED: POTASSIUM CHLORIDE CRTAB 20 MEQ TABCR PO SCH (09:00)
[2023-03-03] MEDS ORDERED: OPTIRAY 350 100ml IV ONE (09:16)
[2023-03-03] MEDS: FUROSEMIDE 40 MG/4 ML VIAL IV SCH ×2 (10:22→17:31)
--- NOTE | 2023-03-03 10:39 | Electrocardiogram Report ---
Test Reason : Blood Pressure : / mmHG Vent. Rate : 060 BPM Atrial Rate : 060 BPM P-R Int : 176 ms QRS Dur : 086 ms QT Int : 454 ms P-R-T Axes : 050 041 053 degrees QTc Int : 454 ms Normal sinus rhythm Normal ECG When compared with ECG of 28-FEB-2023 12:21, No significant change was found Confirmed by Gaudencio Machado ([id number] on 03/03/2023 10:38:39 AM Referred By: REFERRED SELF Confirmed By:Gaudencio Machado
--- NOTE | 2023-03-03 11:13 | CT Scan Report ---
CT OF THE CHEST WITH IV CONTRAST CLINICAL HISTORY: SIADH. COMPARISON STUDY: Chest radiograph February 28, 2023. TECHNIQUE: Following IV administration of 94 mL of Optiray, helical axial images of the chest were o btained. Sagittal and coronal reconstructions were viewed as well as maximal intensity projections o n an independent 3-D workstation. Automated exposure control was utilized for the study. A dose low ering technique was utilized adhering to the principles of ALARA. CT DOSE: 336.21 mGycm FINDINGS: The appearance of the thyroid gland is unchanged since CT of August 02, 2021. Specifical ly, the gland is markedly enlarged and contains multiple nodules. There is retrosternal/mediastinal e xtension. This represents a multinodular goiter. Moderate cardiomegaly is present. No pericardial eff usion. There are no enlarged axillary, mediastinal or hilar lymph nodes. Central airways are patent. Lungs are suboptimally assessed due to respiratory motion. There are suspected lower lobe bronchial w all thickening with small tree-in-bud nodules, greater on the right. No confluent consolidation is pr esent. There are no suspicious pulmonary nodules. Old mild T11 compression deformity is present. No a cute thoracic spine fractures are present. IMPRESSION: 1. No suspicious pulmonary nodules. Exam mildly compromised by respiratory motion. 2. Suspected lower lobe bronchial wall thickening with scattered tree-in-bud nodules. The findings fa vor bronchiolitis. 3. Moderate cardiomegaly. 4. Multinodular goiter, similar in appearance to CT of August 02, 2021. ACT 112: Negative or not required by law. Electronically signed by: Haim Rolon M.D. 03/03/2023 11:12 AM
--- NOTE | 2023-03-03 11:43 | Pharmacy Report ---
Pharmacy Glycemic Short Note 2 - Date of Service March 03, 2023 - Glycemic Short BSG Results (Last 24 hours): 03/02/23 03/02/23 03/02/23 13:11 15:53 16:08 Glucose 130 H Cancelled POC Glucose 136 H 03/02/23 03/02/23 03/02/23 18:01 19:24 22:35 Glucose 167 H 102 H POC Glucose 131 H 03/03/23 03/03/23 03/03/23 04:32 07:40 11:19 Glucose 159 H POC Glucose 126 H 141 H OUTPATIENT ANTIDIABETIC REGIMEN: * A1c 8.0% ASSESSMENT: 03/03: * Patient received 4 units of correctional/prandial insulin yesterday, BSGs [phone] mg/dL * Lantus not given yesterday evening, fasting 126 mg/dL this AM. Will give 5 units this morning * Continue current novolog parameters * Patient with issues getting reliable labs, transferred to ICU status last evening, possible downgrade today 03/02: * A1c of 8.0% indicates diabetes, no previous diagnosis * Fasting below goal this AM- held AM dose, will do reduced scale with dinner * Novolog parameters loosened back to weight based stress of 2 as BSGs have trended downward, no further steroid use 03/01 * 82 YOF with severe asymptomatic hyponatremia, likely diuretic induced. Hyperglycemic, no DM dx, recently on Augmentin and Prednisone, viral respi ratory illness. Antibiotic stopped, received Solu-medrol 60mg IV x1 in ER yesterday. * Patient received 10 units Lantus last night, and 14 units Novolog over last 12 hours, blood sugars remaining in 200s - tighten CF/CR and give additional basal. * May need to back off doses as steroid effects diminish. * A1c pending PLAN FOR INPATIENT GLYCEMIC CONTROL: * Basal insulin * Lantus 5 units qAM * Bolus insulin * NovoLog per scale ACHS or Q6hrs while NPO * Goal Range: Low 110 mg/dL - High 140 mg/dL * Correction Factor: 25 mg/dL/unit * Nutritional / Prandial insulin per carb ratio of 1 unit per 9 grams CHO consumed
--- NOTE | 2023-03-03 13:10 | Hospitalist Progress Note ---
Date of Service March 03, 2023 Assessment & Plan (1) Hyponatremia: Plan: This is an 82-year-old female with PMH of history of CVA with some residual left-sided weakness, hyperlipidemia, obesity SOB and cough x 5 days and was found to have severe hyponatremia on admission. Presented with acute confusion and also unstable eating gait since yesterday morning Diuretic-induced - holding chlorthalidone (dose was increased in Oct 2021 due to uncontrolled HTN and Na was 138 at that time, so hyponatremia likely a chronic process) Initial sodium 108 (corrects to 111 when accounting for hyperglycemia) Given 1L NSS in ED with repeat sodium of 110 Consulted nephrology-goal correction of sodium would be 114 x 2 p.m. today, received D5W later on received normal saline 500 mill bolus last night, will replace electrolytes as needed Appreciate cupola melting supervisor input and recommendation Low urine and serum osmolality and high random urine sodium likely secondary to use of chlorthalidone Clinically much better today Sodium is expected to correct spontaneously Patient is transferred to telemetry unit Received 1 L of normal saline yesterday-sodium level remains at 115 as of 3 PM Sodium level 1 going down to 110 last evening and the patient got real weak and tired Has been feeling a little better since this morning and the sodium level is around [address] of the chest which was unremarkable this morning Has been started with intravenous Lasix Will have a strict intake output chart maintained with reduction of fluid restriction to 1200 PRP will be checked every 4 hours stat as per coke drawer (2) Viral respiratory infection: Plan: Parainfluenza 3 detected on viral PCR. No indication to continue Augmentin prescribed in outpatient setting (completed 5 days), completed 5 day prednisone taper Supportive care Complains to have aches and pains involving the chest wall, back and also right hip Tylenol is not helping so started with intravenous Toradol 30 mg every 6 hourly as needed White count is elevated likely secondary to viral infection with parainfluenza CT scan did show bronchiolitis-we will leave it up to cupola melting supervisor to start any antibiotic (3) Hypertension: Plan: Holding atenolol-chlorthalidone given hyponatremia Blood pressure needs to be around 150 systolic Added a small dose of amlodipine to control the blood pressure Blood pressure seems reasonably controlled (4) Hyperlipidemia: Plan: Continue statin (5) History of CVA (cerebrovascular accident): Plan: Remote history of CVA with mild left sided weakness. Continue aspirin, statin DVT Ppx: SQ lovenox Code status: FULL PCP: My Dispo: Admitted to ICU Total of 60 minutes spent with the patient, reviewing the medications and adjusting the medications, discussions with the specialist and with the son Admission and Anticipated Discharge Date Admission Date: February 28, 2023 Subjective 03/01/2023 The patient was seen and examined with the coke drawer in ICU in presence of the son She was admitted with acute confusion and unstable it with ambulation that happened yesterday morning She did not have any seizures or any acute neurological symptoms except confusion She has been feeling little better as of this morning 03/02/2023 The patient was seen and examined in ICU She has been complaining of aches and pains involving the chest wall, back and also right hip pain Denies any shortness of breath at rest Complains to have some swelling of the legs which has been like that for a long time 03/03/2023 The patient was seen and examined in ICU She has had episodes of weakness and extreme tiredness last evening when the sodium level is noted to be 110 She has been started with intravenous Lasix and cupola melting supervisor has been consulted again She has been feeling a little better since this morning but he still has the pain at the back of the left chest wall Review of Systems Review of Systems: All systems reviewed and are unremarkable except as noted below Physical Exam Physical Exam: Sitting on a chair without any acute distress Constitutional: well developed, well nourished, + ill appearing and + obese Eyes: PERRL, conjunctivae normal, anicteric sclerae ENMT: external ear and nose normal, oropharynx normal Neck: trachea midline, no thyromegaly Respiratory: + respiratory distress (Minimal distress at rest) Auscultation: + diminished lung sounds and + crackles (Minimal bibasilar crackles); no wheezes Cardiovascular: Rate/Rhythm: regular rate and regular rhythm; not tachycardic Heart Sounds: normal S1 and normal S2; no murmur Extremities: + edema (Trace edema bilaterally) Gastrointestinal (Abdomen): Inspection/Auscultation: + abdomen distended and normal bowel sounds Percussion/Palpation: abdomen soft; abdomen nontender Musculoskeletal: No acute arthritis involving any of the joint Neurologic: normal touch/pain/proprioception and moves all extremities; no focal motor deficits Psychiatric: A+Ox3, euthymic affect Lymphatic: no cervical or axillary lymphadenopathy Results & Data Results & Data Vital Signs (Past 12 Hours) Vital Signs Temp Pulse Pulse Resp BP BP Pulse Ox 03/03/23 12:01 66 19 95 03/03/23 12:01 123/77 03/03/23 12:00 65 19 03/03/23 11:12 149/68 H 03/03/23 11:12 60 17 96 03/03/23 11:05 67 19 03/03/23 10:01 74 19 03/03/23 10:01 136/57 L 03/03/23 10:00 65 16 95 03/03/23 09:22 178/76 H 03/03/23 09:22 86 16 03/03/23 09:17 70 16 03/03/23 08:00 68 17 95 03/03/23 08:00 164/78 H 03/03/23 07:38 94 03/03/23 07:38 147/71 H 03/03/23 11:23 36.4 C L 64 20 149/68 H 95 03/03/23 07:00 36.4 C L 58 L 20 167/74 H 96 03/03/23 06:01 150/63 H 03/03/23 06:01 59 L 22 03/03/23 06:00 63 24 03/03/23 04:01 152/67 H 03/03/23 04:01 58 L 20 95 03/03/23 04:00 56 L 15 97 03/03/23 02:00 57 L 15 03/03/23 02:00 104/63 O2 Del Method 03/03/23 12:01 03/03/23 12:01 03/03/23 12:00 03/03/23 11:12 03/03/23 11:12 03/03/23 11:05 03/03/23 10:01 03/03/23 10:01 03/03/23 10:00 03/03/23 09:22 03/03/23 09:22 03/03/23 09:17 03/03/23 08:00 03/03/23 08:00 03/03/23 07:38 03/03/23 07:38 03/03/23 11:23 Room Air 03/03/23 07:00 Room Air 03/03/23 06:01 03/03/23 06:01 03/03/23 06:00 03/03/23 04:01 03/03/23 04:01 03/03/23 04:00 03/03/23 02:00 03/03/23 02:00 Laboratory Results Short CBC 03/03/23 Range/Units 04:32 WBC 16.28 H (4.8-10.8) K/ul Hgb 12.3 (12.0-16.0) g/dl Hct 34.0 L (37.0-47.0) % Plt Count 306 (130-400) K/uL BMP 03/02/23 03/02/23 03/02/23 13:11 16:08 18:01 Sodium 115 L* Cancelled 110 L* Potassium 3.8 Cancelled TNP Chloride 77 L Cancelled 75 L Carbon Dioxide 31 Cancelled 29 BUN 26 H Cancelled 29 H Creatinine 0.59 L Cancelled 0.68 Glucose 130 H Cancelled 167 H Calcium 8.3 L Cancelled 8.2 L 03/02/23 03/02/23 03/02/23 19:24 21:28 22:34 Sodium 113 L* Potassium TNP TNP 3.5 Chloride Carbon Dioxide BUN Creatinine Glucose Calcium 03/02/23 03/03/23 22:35 04:32 Sodium 114 L* 114 L* Potassium 3.5 4.2 Chloride 73 L 77 L Carbon Dioxide 34 H 32 BUN 28 H 30 H Creatinine 0.67 0.66 Glucose 102 H 159 H Calcium 8.0 L 7.9 L Cardiac Enzymes 03/02/23 Range/Units 18:57 Total Creatine Kinase 289 H (26-192) U/L Medications Administered Current Inpatient Medications Acetaminophen (Acetaminophen 500 Mg Tab) 1,000 mg PO Q8H PRN PRN Reason: Pain Stop: 04/01/23 07:25 Last Admin: 03/03/23 05:18 Dose: 1,000 mg Albuterol (Albuterol 0.5% Neb Soln 2.5 Mg/0.5 Ml Vial) 2.5 mg NEB Q6R PRN; Protocol PRN Reason: wheeze, cough Stop: 03/30/23 20:14 Last Admin: 03/01/23 09:38 Dose: 2.5 mg Amlodipine Besylate (Amlodipine Besylate 5 Mg Tab) 10 mg PO QAM [facility] Stop: 04/02/23 08:59 Last Admin: 03/03/23 08:20 Dose: 10 mg Aspirin (Aspirin 81 Mg Ectab) 81 mg PO DAILY [facility] Stop: 03/31/23 08:59 Last Admin: 03/03/23 08:20 Dose: 81 mg Atenolol (Atenolol 50 Mg Tablet) 50 mg PO QAM [facility] Stop: 03/31/23 08:59 Last Admin: 03/03/23 08:19 Dose: 50 mg Atorvastatin Calcium (Atorvastatin 10 Mg Tab) 10 mg PO DAILY [facility] Stop: 03/31/23 08:59 Last Admin: 03/03/23 08:19 Dose: 10 mg Dextrose (Dextrose 50% 50 Ml Syringe) 25 - 50 ml IV UD PRN; Protocol PRN Reason: Hypoglycemia Protocol Stop: 03/30/23 20:14 Enoxaparin Sodium (Enoxaparin Inj 40 Mg/0.4 Ml Syr) 40 mg SQ Q24H [facility] Stop: 03/30/23 20:59 Last Admin: 03/02/23 21:50 Dose: 40 mg Furosemide (Furosemide 40 Mg/4 Ml Vial) 40 mg IV BID17 [facility] Stop: 04/02/23 08:59 Last Admin: 03/03/23 10:22 Dose: 40 mg Glucagon (Glucagon For Inj 1 Mg Vial) 1 mg SQ UD PRN; Protocol PRN Reason: Hypoglycemia Protocol Stop: 03/30/23 20:14 Glucose (Glucose 10 Tab/Tube) 4 - 8 tab PO UD PRN; Protocol PRN Reason: Hypoglycemia Treatment Stop: 03/30/23 20:14 Glucose (Glucose 40% Gel 15 Gm Tube) 15 - 30 gm PO UD PRN; Protocol PRN Reason: Hypoglycemia Protocol Stop: 03/30/23 20:14 Hydralazine HCl (Hydralazine Hcl 20 Mg/Ml Vial) 10 mg IV Q6H PRN PRN Reason: Blood Pressure - High Stop: 04/01/23 13:14 Insulin Aspart (Insulin Aspart Per Unit Charge) [address] [facility] Stop: 03/31/23 07:29 Last Admin: 03/03/23 12:26 Dose: 6 units Insulin Glargine (Lantus Per Unit Charge) 5 units SQ [facility]; Protocol Stop: 04/02/23 08:59 Last Admin: 03/03/23 08:24 Dose: 5 units Lidocaine (Lidocaine 5% 1 Patch) 1 patch TD QAM [facility] Stop: 04/01/23 20:59 Last Admin: 03/03/23 08:19 Dose: 1 patch Menthol (Cough Drop (Sugar Free) Jerson 24 Jerson/1 Box) 1 jerson BUCCAL QID PRN PRN Reason: Sore Throat Stop: 03/30/23 20:14 Last Admin: 03/02/23 16:08 Dose: 24 jerson Miscellaneous (Carbohydrates For Hypoglycemia ) 15 - 30 gm PO UD PRN PRN Reason: Hypoglycemia Protocol Stop: 03/30/23 20:14 Miscellaneous (Remove Lidoderm Patch) 1 each N/A DAILY@2100 [facility] Stop: 04/01/23 20:59 Last Admin: 03/02/23 21:16 Dose: Not Given Miscellaneous Information (Pharmacy Glycemic Mgmt Consult) 1 each N/A UD PRN; Protocol PRN Reason: Consult Stop: 03/30/23 18:37 Polyethylene Glycol (Polyethylene (Miralax) 17 Gm Pack) 17 gm PO DAILY [facility] Stop: 03/31/23 11:29 Last Admin: 03/03/23 08:19 Dose: 17 gm Potassium Chloride (Potassium Chloride Crtab 20 Meq Tabcr) 40 meq PO BID [facility] Stop: 04/01/23 20:59 Last Admin: 03/03/23 08:24 Dose: 40 meq Vitamin B Complex (Vitamin B Complex Tab) 1 tab PO DAILY [facility] Stop: 03/31/23 08:59 Last Admin: 03/03/23 08:20 Dose: 1 tab
[2023-03-03 15:46] LABS: Anion Gap 10 (3-11); Blood Urea Nitrogen 29 mg/dl (6-23); Calcium 8.1 mg/dl (8.6-10.3); Carbon Dioxide 29 mmol/L (21-32); Chloride 79 mmol/L (98-107); Creatinine Clr Calc Pharmacy 65.8 ml/min; Est GFR (African American) 94.6 ml/min; Est GFR (Non-African American) 81.6 ml/min; Glucose 97 mg/dl (70-99(Fasting)); Sodium 118 mmol/L (136-145)
[2023-03-03] MEDS: ENOXAPARIN INJ 40 MG/0.4 ML SYR SQ SCH (20:22)
[2023-03-03 21:15] LABS: Calcium 8.6 mg/dl (8.6-10.3)
[2023-03-03 21:21] LABS: BUN Creatinine Ratio 40.8 (10-20); Est GFR (African American) 92.6 ml/min; Est GFR (Non-African American) 79.9 ml/min
[2023-03-04 05:04] LABS: Basophils # (auto) 0.04 K/uL (0-0.2); Basophils % (auto) 0.2 %; Eosinophils # (auto) 0.07 K/uL (0-0.50); Eosinophils % (auto) 0.4 %; Hematocrit (blood only) 36.3 % (37.0-47.0); Hemoglobin 12.6 g/dl (12.0-16.0); Immature Granulocytes # (auto) 0.18 K/uL (0.01-0.20); Immature Granulocytes % (auto) 1.1 %; Lymphocytes # (auto) 2.45 K/uL (1.2-3.4); Lymphocytes % (auto) 14.7 %; Mean Corpuscular Hemoglobin 25.5 pg (25.0-34.0); Mean Corpuscular Hgb Conc 34.7 g/dL (32.0-36.0); Mean Corpuscular Volume 73.5 fL (80.0-100.0); Mean Platelet Volume 9.3 fL (9.4-12.4); Monocytes # (auto) 1.22 K/uL (0.11-0.59); Monocytes % (auto) 7.3 %; Neutrophils # (auto) 12.69 K/uL (1.40-6.50); Neutrophils % (auto) 76.3 %; Platelet Count 310 K/uL (130-400); RDW Coefficient of Variation 13.9 % (11.5-14.5); RDW Standard Deviation 36.9 fL (36.4-46.3); Red Blood Count 4.94 M/uL (4.20-5.40); White Blood Count 16.65 K/ul (4.8-10.8)
[2023-03-04 05:36] LABS: BUN Creatinine Ratio 40.3 (10-20); Calcium 8.3 mg/dl (8.6-10.3); Creatinine Clr Calc Pharmacy 67.8 ml/min; Est GFR (African American) 95.5 ml/min; Est GFR (Non-African American) 82.4 ml/min; Potassium 4.5 mmol/L (3.5-5.1)
[2023-03-04] MEDS: INSULIN ASPART PER UNIT CHARGE SC SCH ×4 (07:42→20:43)
[2023-03-04] MEDS: FUROSEMIDE 40 MG/4 ML VIAL IV SCH (07:51)
[2023-03-04] MEDS: POTASSIUM CHLORIDE CRTAB 20 MEQ TABCR PO SCH (07:51)
[2023-03-04] MEDS: ATENOLOL 50 MG TABLET PO SCH (07:53)
[2023-03-04] MEDS: LANTUS PER UNIT CHARGE SQ SCH (07:53)
[2023-03-04] MEDS: amLODIPine BESYLATE 5 MG TAB PO SCH (07:54)
[2023-03-04] MEDS: ASPIRIN 81 MG ECTAB PO SCH (07:54)
[2023-03-04] MEDS: ATORVASTATIN 10 MG TAB PO SCH (07:54)
--- NOTE | 2023-03-04 07:54 | Nephrology Progress Note ---
Date of Service March 04, 2023 Assessment & Plan (1) Hyponatremia: Plan: - chlorthalidone induced on the background on poor solute intake and respiratory virus/bronchiolitis on CT. 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 past 24 hrs responding to lasix - Target Sodium max 124 for AM tomorrow - Rate of correction has been on target, even slow - Q6h bmp ordered for day light >> specimens are frequently hemolyzed; strongly recommend better access for this pt since we are having trouble getting timely labs - Continue with 1.2 lit total fluid restriction > protein shakes do not count toward fluid limit and should be encouraged >>daily standing weight, I/O ordered >>order in to record po intake >> trying to gauge how well /poorly she's eating > encourage higher protein intake - Replace K to keep levels > 4 and Magnesium > 2.0 ->>> avoid nsaids - f/u pending echocardiogram, ? if still planned >>>>>>HELD lasix and K this AM d/t IV con yesterday; held x one dose only She needs a reliable way to get every 6 hours stat labs for the next several days. RN plans to approach IV team about ultrasound-guided IV. If this does not work recommend PICC or other access. Will discuss with Dr. Vang (2) Poorly-controlled hypertension: Plan: improved control past 24 hr > goal is sbp 110-140s -lasix as above -continue atenolol and just upped amlodipine >may need standing hydralazine -f/u pending TTE >> mild plm HTN; normal EF; mild MRgg increase; mild CLV[facility] (3) Viral respiratory infection: Plan: -- as per primary. Admission and Anticipated Discharge Date Admission Date: February 28, 2023 Subjective no interval clinical events. getting TTE as I evaluated her this am. cont to c/o L scapular pain Review of Systems Review of Systems: All systems reviewed & are unremarkable except as noted in Subjective (limited by language barrier) Physical Exam Constitutional: well developed, well nourished and + acute distress Eyes: EOM intact bilaterally ENMT: Ears: no external ear abnormality Nose: no external nose abnormality Mouth: + dry oral mucous membranes Neck: no nuchal rigidity Respiratory: normal respiratory effort Auscultation: + diminished lung sounds Cardiovascular: RRR, no murmur, no edema Gastrointestinal (Abdomen): Inspection/Auscultation: normal bowel sounds Percussion/Palpation: abdomen soft; abdomen nontender Musculoskeletal: Extremities: strength 5/5 throughout Skin: no rashes, warm and dry Results & Data Vital Signs (Past 12 Hours) Vital Signs Temp Pulse Resp BP Pulse Ox 03/04/23 06:00 70 14 148/56 H 03/04/23 05:00 61 16 119/99 03/04/23 04:00 55 L 9 L 100/75 03/04/23 00:00 84 03/04/23 03:00 61 15 137/66 03/04/23 02:00 54 L 11 L 114/49 L 03/04/23 01:00 59 L 13 122/53 L 03/04/23 00:00 56 L 12 102/53 L 03/03/23 23:00 81 20 141/100 H 90 03/03/23 22:39 69 20 142/56 H 91 03/03/23 21:00 63 17 131/59 L 93 03/03/23 20:00 66 20 142/73 H 92 03/03/23 23:00 36.4 C L Laboratory Results 03/04/23 04:36 03/04/23 04:[address] Chest w/ con FINDINGS: The appearance of the thyroid gland is unchanged since CT of August 02, 2021. Specifically, the gland is markedly enlarged and contains multiple nodules. There is retrosternal/mediastinal extension. This represents a multinodular goiter. Moderate cardiomegaly is present. No pericardial effusion. There are no enlarged axillary, mediastinal or hilar lymph nodes. Central airways are patent. Lungs are suboptimally assessed due to respiratory motion. There are suspected lower lobe bronchial wall thickening with small tree-in-bud nodules, greater on the right. No confluent consolidation is present. There are no suspicious pulmonary nodules. Old mild T11 compression deformity is present. No acute thoracic spine fractures are present. IMPRESSION: 1. No suspicious pulmonary nodules. Exam mildly compromised by respiratory motion. 2. Suspected lower lobe bronchial wall thickening with scattered tree-in-bud nodules. The findings favor bronchiolitis. 3. Moderate cardiomegaly. 4. Multinodular goiter, similar in appearance to CT of August 02, 2021.
[2023-03-04] MEDS: LIDOCAINE 5% 1 PATCH TD SCH (07:55)
[2023-03-04] MEDS: POLYETHYLENE (MIRALAX) 17 GM PACK PO SCH (07:55)
[2023-03-04] MEDS: VITAMIN B COMPLEX TAB PO SCH (07:55)
--- NOTE | 2023-03-04 08:00 | Critical Care Progress Note ---
Date of Service March 04, 2023 Assessment & Plan (1) Viral respiratory infection: (2) Hyponatremia: (3) History of CVA (cerebrovascular accident): (4) Poorly-controlled hypertension: (5) Obesity (BMI 30.0-34.9): (6) Hyperlipidemia: Plan Impression: 82 YOF with severe asymptomatic hyponatremia. Appears consistent with SIADH ,likely hypovolemic from diuretic hypoosmolar hyponatremia. She has recurrent CP and back pain. Has been on steroids for bronchitis/parainfluenza. 24 hour events: CT of the chest completed showing a large substernal thyroid with tracheal deviation. No parenchymal lesions. Recommendation Neuro -prior history of CVA. Unclear if this could be driving her SIADH in conjunction with her diuretic. She is relatively asymptomatic currently with the exception of some chest and back discomfort. Cardiac -hypertension: Continue amlodipine and atenolol. Increase amlodipine to 10 mg daily. Given her diastolic dysfunction noted previously, target blood pressure should be less than 135/75. Respiratory -parainfluenza. No need for antimicrobial agents or steroids. CT of the chest does show significant tracheal deviation due to substernal thyroid/goiter. Outpatient ENT consultation recommended. Patient may have a difficult airway if she were to require intubation. GI - No acute needs - regular diet RENAL/LYTES -persistent hyponatremia. Improving. Management per nephrology - No acute needs ENDO - TSH undetectable with free T4 elevated consistent with probable hyperthyroidism. Difficult to assess in the setting of an acute illness. Follow-up with endocrinology in the outpatient setting. Random cortisol preserved. No other signs of significant hyperthyroidism HEME - No acute needs ID -no indication for additional antimicrobial agents. LINES/IV ACCESS - PIV DVT PROPHYLAXIS - Lovenox 40mg subq daily, SCDS DISPO-patient sodium levels appear to be back to normal. Patient no longer requires ICU care. She can be transferred out per the hospitalist. Critical care will sign off. Feel free to contact us with questions or concerns Admission and Anticipated Discharge Date Admission Date: February 28, 2023 Subjective No acute events overnight. Patient offers no new complaints Review of Systems Review of Systems: All systems reviewed & are unremarkable except as noted in Subjective Physical Exam Constitutional: WD/WN, vitals as above Neck: trachea midline, no thyromegaly Respiratory: normal respiratory effort, lungs clear to auscultation Cardiovascular: RRR, no murmur, no edema Gastrointestinal (Abdomen): normal bowel sounds, soft, nontender, no h epatosplenomegaly Musculoskeletal: Extremities: extremities normal to inspection Skin: no rashes, warm and dry Lymphatic: no cervical lymphadenopathy Results & Data Results & Data Vital Signs (Past 12 Hours) Vital Signs Temp Pulse Resp BP Pulse Ox 03/04/23 06:00 70 14 148/56 H 03/04/23 05:00 61 16 119/99 03/04/23 04:00 55 L 9 L 100/75 03/04/23 00:00 84 03/04/23 03:00 61 15 137/66 03/04/23 02:00 54 L 11 L 114/49 L 03/04/23 01:00 59 L 13 122/53 L 03/04/23 00:00 56 L 12 102/53 L 03/03/23 23:00 81 20 141/100 H 90 03/03/23 22:39 69 20 142/56 H 91 03/03/23 21:00 63 17 131/59 L 93 03/03/23 20:00 66 20 142/73 H 92 03/03/23 23:00 36.4 C L Critical Care Results & Data Vital Signs (Past 12 Hours) Vital Signs Temp Pulse Resp BP Pulse Ox 03/04/23 06:00 70 14 148/56 H 03/04/23 05:00 61 16 119/99 03/04/23 04:00 55 L 9 L 100/75 03/04/23 00:00 84 03/04/23 03:00 61 15 137/66 03/04/23 02:00 54 L 11 L 114/49 L 03/04/23 01:00 59 L 13 122/53 L 03/04/23 00:00 56 L 12 102/53 L 03/03/23 23:00 81 20 141/100 H 90 03/03/23 22:39 69 20 142/56 H 91 03/03/23 21:00 63 17 131/59 L 93 03/03/23 20:00 66 20 142/73 H 92 03/03/23 23:00 36.4 C L Lab & Micro Results (Past 24 Hours) RBC 4.94 M/uL (4.20-5.40) 03/04/23 WBC 16.65 K/ul (4.8-10.8) H 03/04/23 Hgb 12.6 g/dl (12.0-16.0) 03/04/23 Hct 36.3 % (37.0-47.0) L 03/04/23 MCV 73.5 fL (80.0-100.0) L 03/04/23 MCH 25.5 pg (25.0-34.0) 03/04/23 MCHC 34.7 g/dL (32.0-36.0) 03/04/23 RDW Standard Deviation 36.9 fL (36.4-46.3) 03/04/23 RDW Coefficient of Variation 13.9 % (11.5-14.5) 03/04/23 Plt Count 310 K/uL (130-400) 03/04/23 MPV 9.3 fL (9.4-12.4) L 03/04/23 Neutrophils (%) (Auto) 76.3 % 03/04/23 Lymphocytes (%) (Auto) 14.7 % 03/04/23 Monocytes # (Auto) 1.22 K/uL (0.11-0.59) H 03/04/23 Eosinophils # (Auto) 0.07 K/uL (0-0.50) 03/04/23 Immature Granulocyte % (Auto) 1.1 % 03/04/23 Neutrophils # (Auto) 12.69 K/uL (1.40-6.50) H 03/04/23 Lymphocytes # (Auto) 2.45 K/uL (1.2-3.4) 03/04/23 Monocytes # (Auto) 1.22 K/uL (0.11-0.59) H 03/04/23 Eosinophils # (Auto) 0.07 K/uL (0-0.50) 03/04/23 Basophils # (Auto) 0.04 K/uL (0-0.2) 03/04/23 Immature Granulocyte # (Auto) 0.18 K/uL (0.01-0.20) 3 Na 118 mmol/L (136-145) L* 03/04/23 K 4.5 mmol/L (3.5-5.1) 03/04/23 Cl 78 mmol/L (98-107) L 03/04/23 CO2 33 mmol/L (21-32) H 03/04/23 Anion Gap 7 (3-11) 03/04/23 BUN 27 mg/dl (6-23) H 03/04/23 Creatinine 0.67 mg/dl (0.6-1.2) 03/04/23 Estimated GFR ( Amer) 95.5 ml/min 03/04/23 Estimated GFR (Non-Af Amer) 82.4 ml/min 03/04/23 BUN/Creatinine Ratio 40.3 (10-20) H 03/04/23 Glu 141 mg/dl (70-99(Fasting)) H 03/04/23 Ca 8.3 mg/dl (8.6-10.3) L 03/04/23 Calcium Level 8.3 mg/dl (8.6-10.3) L 03/04/23 04:36 Diagnostic Findings (Past 24 Hours) Chest CT 03/03/23 07:48 CT OF THE CHEST WITH IV CONTRAST CLINICAL HISTORY: SIADH. COMPARISON STUDY: Chest radiograph February 28, 2023. TECHNIQUE: Following IV administration of 94 mL of Optiray, helical axial images of the chest were obtained. Sagittal and coronal reconstructions were viewed as well as maximal intensity projections on an independent 3-D workstation. Automated exposure control was utilized for the study. A dose lowering technique was utilized adhering to the principles of ALARA. CT DOSE: 336.21 mGycm FINDINGS: The appearance of the thyroid gland is unchanged since CT of August 02, 2021. Specifically, the gland is markedly enlarged and contains multiple nodules. There is retrosternal/mediastinal extension. This represents a multinodular goiter. Moderate cardiomegaly is present. No pericardial effusion. There are no enlarged axillary, mediastinal or hilar lymph nodes. Central airways are patent. Lungs are suboptimally assessed due to respiratory motion. There are suspected lower lobe bronchial wall thickening with small tree-in-bud nodules, greater on the right. No confluent consolidation is present. There are no suspicious pulmonary nodules. Old mild T11 compression deformity is present. No acute thoracic spine fractures are present. IMPRESSION: 1. No suspicious pulmonary nodules. Exam mildly compromised by respiratory motion. 2. Suspected lower lobe bronchial wall thickening with scattered tree-in-bud nodules. The findings favor bronchiolitis. 3. Moderate cardiomegaly. 4. Multinodular goiter, similar in appearance to CT of August 02, 2021. ACT 112: Negative or not required by law. Electronically signed by: Haim Rolon M.D. 03/03/2023 11:12 AM I & O Totals 24 Hours 03/03/23 03/04/23 03/05/23 06:59 06:59 06:59 Intake Total 460 / 460 1100 / 1100 Output Total 300 / 300 1501 / 1501 Balance 160 / 160 -401 / -401 Cumulative 02/28/23 12:02 thru 03/04/23 05:46 Intake Total 5560 Output Total 2252 Balance 3308 RT Ventilator Mngmt (Last Documented) Ventilator Ordered Settings Respiratory Rate 14 03/04/23 06:00 Ventilator - PT Measurements Respiratory Rate 14 Coding Level of Care Code 05310 SUB INP/OBS CARE 2/35MIN Diagnoses Viral respiratory infection J98.8; B97.89 Hyponatremia E87.1 History of CVA (cerebrovascular accident) Z86.73 Poorly-controlled hypertension I10 Obesity (BMI 30.0-34.9) E66.9 Hyperlipidemia E78.5
[2023-03-04 13:15] LABS: BUN Creatinine Ratio 39.1 (10-20); Blood Urea Nitrogen 25 mg/dl (6-23); Carbon Dioxide 32 mmol/L (21-32); Chloride 80 mmol/L (98-107); Est GFR (Non-African American) 83.7 ml/min; Glucose 163 mg/dl (70-99(Fasting))
--- NOTE | 2023-03-04 14:51 | XCELERA ---
[id number]
[2023-03-04 15:16] LABS: Potassium 4.5 mmol/L (3.5-5.1)
--- NOTE | 2023-03-04 15:27 | Hospitalist Progress Note ---
Date of Service March 04, 2023 Assessment & Plan (1) Hyponatremia: Plan: This is an 82-year-old female with PMH of history of CVA with some residual left-sided weakness, hyperlipidemia, obesity SOB and cough x 5 days and was found to have severe hyponatremia on admission. Presented with acute confusion and also unstable eating gait which is now resolved. Chlorthalidone-induced on background of poor solute intake and respiratory virus/bronchiolitis- holding chlorthalidone (dose was increased in Oct 2021 due to uncontrolled HTN and Na was 138 at that time, so hyponatremia likely a chronic process). Cortisol level normal. TSH suppressed, T4 elevated Initial sodium 108 (corrects to 111 when accounting for hyperglycemia). Low urine and serum osmolality and high random urine sodium likely secondary to use of chlorthalidone Given 1L NSS in ED with repeat sodium of 110. Nephrology managing hyponatremia. Also seen by supervisor lead burning. Managed in ICU. Sodium improved to 118, being corrected as per goal. Getting labs every 4 hours. Stable to transfer out of ICU. Continue current management and labs- goal sodium of 124 for am tomorrow. Fluid restriction of 1.2 L. Lasix on hold today because of contrast yesterday Clinically doing better and stable Echo with mild increase in MR and mild PH but otherwise no significant change from 07/2021 (2) Viral respiratory infection: Plan: Parainfluenza 3 detected on viral PCR. No indication to continue Augmentin prescribed in outpatient setting (completed 5 days), completed 5 day prednisone taper Supportive care Complains to have aches and pains involving the chest wall, back and also right hip Tylenol is not helping so started with intravenous Toradol 30 mg every 6 hourly as needed White count is elevated likely secondary to viral infection with parainfluenza CT scan did show bronchiolitis- Agree with supervisor lead burning that no indication for further antibiotic at this time (3) Hypertension: Plan: Holding atenolol-chlorthalidone given hyponatremia Blood pressure needs to be around 150 systolic Started on amlodipine to control the blood pressure- will adjust as indicated (4) Hyperlipidemia: Plan: Continue statin (5) History of CVA (cerebrovascular accident): Plan: Remote history of CVA with mild left sided weakness. Continue aspirin, statin DVT Ppx: SQ lovenox Code status: FULL PCP: Mainali Dispo: Transfer to PCU tele (6) Abnormal CT scan, chest: (7) Abnormal thyroid function test: Plan: Multinodular goiter, similar in appearance to CT as of August 02, 2021. TSH suppressed <0.01, T4 elevated 2.2, probable hyperthyroidism but also has ongoing acute illness. Will discuss with endo for further management Admission and Anticipated Discharge Date Admission Date: February 28, 2023 Subjective Feels better. Complains of ongoing discomfort in left shoulder and chest for the past few weeks but improving. Denies any lightheadedness, dizziness, N/V. Normal oral intake. States she gets thirsty and would like sips of cold water at night. She states she is having language barrier to convey her needs. Review of Systems Review of Systems: All systems reviewed & are unremarkable except as noted in Subjective Physical Exam Physical Exam: General: Sitting comfortably in chair, not in distress, on room air HEENT: EOMI, SHRUTI, MMM Chest: Diminished breath sounds with minimal basilar crackles, o wheezes CVS: Regular rate and rhythm, normal heart sounds, no murmur Abdomen: Soft, non tender, not distended, normal bowel sounds Neuro: Awake, alert, oriented, conversing well, non focal Extremities: No cyanosis, clubbing, trace LE edema Results & Data Results & Data Vital Signs (Past 12 Hours) Vital Signs Temp Pulse Pulse Resp BP BP Pulse Ox 03/04/23 12:00 36.7 C 66 20 157/91 H 96 03/04/23 08:25 03/04/23 08:16 36.6 C 73 20 157/66 H 95 03/04/23 06:00 70 14 148/56 H 03/04/23 05:00 61 16 119/99 03/04/23 04:00 55 L 9 L 100/75 O2 Del Method 03/04/23 12:00 Room Air 03/04/23 08:25 Room Air 03/04/23 08:16 Room Air 03/04/23 06:00 03/04/23 05:00 03/04/23 04:00 Laboratory Results Short CBC 03/04/23 Range/Units 04:36 WBC 16.65 H (4.8-10.8) K/ul Hgb 12.6 (12.0-16.0) g/dl Hct 36.3 L (37.0-47.0) % Plt Count 310 (130-400) K/uL BMP 03/03/23 03/03/23 03/04/23 14:25 20:53 04:36 Sodium 118 L* 118 L* 118 L* Potassium TNP 5.0 4.5 Chloride 79 L 77 L 78 L Carbon Dioxide 29 31 33 H BUN 29 H 29 H 27 H Creatinine 0.69 0.71 0.67 Glucose 97 169 H 141 H Calcium 8.1 L 8.6 8.3 L 03/04/23 03/04/23 03/04/23 11:04 11:49 14:37 Sodium Cancelled TNP 120 L Potassium Cancelled TNP 4.5 Chloride Cancelled 80 L Carbon Dioxide Cancelled 32 BUN Cancelled 25 H Creatinine Cancelled 0.64 Glucose Cancelled 163 H Calcium Cancelled 8.0 L Medications Administered Current Inpatient Medications Acetaminophen (Acetaminophen 500 Mg Tab) 1,000 mg PO Q8H PRN PRN Reason: Pain Stop: 04/01/23 07:25 Last Admin: 03/03/23 05:18 Dose: 1,000 mg Albuterol (Albuterol 0.5% Neb Soln 2.5 Mg/0.5 Ml Vial) 2.5 mg NEB Q6R PRN; Protocol PRN Reason: wheeze, cough Stop: 03/30/23 20:14 Last Admin: 03/01/23 09:38 Dose: 2.5 mg Amlodipine Besylate (Amlodipine Besylate 5 Mg Tab) 10 mg PO QAM [facility] Stop: 04/02/23 08:59 Last Admin: 03/04/23 07:54 Dose: 10 mg Aspirin (Aspirin 81 Mg Ectab) 81 mg PO DAILY [facility] Stop: 03/31/23 08:59 Last Admin: 03/04/23 07:54 Dose: 81 mg Atenolol (Atenolol 50 Mg Tablet) 50 mg PO QAM [facility] Stop: 03/31/23 08:59 Last Admin: 03/04/23 07:53 Dose: 50 mg Atorvastatin Calcium (Atorvastatin 10 Mg Tab) 10 mg PO DAILY [facility] Stop: 03/31/23 08:59 Last Admin: 03/04/23 07:54 Dose: 10 mg Dextrose (Dextrose 50% 50 Ml Syringe) 25 - 50 ml IV UD PRN; Protocol PRN Reason: Hypoglycemia Protocol Stop: 03/30/23 20:14 Enoxaparin Sodium (Enoxaparin Inj 40 Mg/0.4 Ml Syr) 40 mg SQ Q24H [facility] Stop: 03/30/23 20:59 Last Admin: 03/03/23 20:22 Dose: 40 mg Furosemide (Furosemide 40 Mg/4 Ml Vial) 40 mg IV BID17 [facility] Stop: 04/02/23 08:59 Last Admin: 03/04/23 07:51 Dose: 40 mg Glucagon (Glucagon For Inj 1 Mg Vial) 1 mg SQ UD PRN; Protocol PRN Reason: Hypoglycemia Protocol Stop: 03/30/23 20:14 Glucose (Glucose 10 Tab/Tube) 4 - 8 tab PO UD PRN; Protocol PRN Reason: Hypoglycemia Treatment Stop: 03/30/23 20:14 Glucose (Glucose 40% Gel 15 Gm Tube) 15 - 30 gm PO UD PRN; Protocol PRN Reason: Hypoglycemia Protocol Stop: 03/30/23 20:14 Hydralazine HCl (Hydralazine Hcl 20 Mg/Ml Vial) 10 mg IV Q6H PRN PRN Reason: Blood Pressure - High Stop: 04/01/23 13:14 Insulin Aspart (Insulin Aspart Per Unit Charge) 0 units SC ACHS [facility] Stop: 03/31/23 07:29 Last Admin: 03/04/23 12:26 Dose: 2 units Insulin Glargine (Lantus Per Unit Charge) 5 units SQ [facility]; Protocol Stop: 04/02/23 08:59 Last Admin: 03/04/23 07:53 Dose: 5 units Lidocaine (Lidocaine 5% 1 Patch) 1 patch TD [facility] Stop: 04/01/23 20:59 Last Admin: 03/04/23 07:55 Dose: 1 patch Menthol (Cough Drop (Sugar Free) Jerson 24 Jerson/1 Box) 1 jerson BUCCAL QID PRN PRN Reason: Sore Throat Stop: 03/30/23 20:14 Last Admin: 03/02/23 16:08 Dose: 24 jerson Miscellaneous (Carbohydrates For Hypoglycemia ) 15 - 30 gm PO UD PRN PRN Reason: Hypoglycemia Protocol Stop: 03/30/23 20:14 Miscellaneous (Remove Lidoderm Patch) 1 each N/A DAILY@2100 [facility] Stop: 04/01/23 20:59 Last Admin: 03/03/23 20:23 Dose: 1 each Miscellaneous Information (Pharmacy Glycemic Mgmt Consult) 1 each N/A UD PRN; Protocol PRN Reason: Consult Stop: 03/30/23 18:37 Polyethylene Glycol (Polyethylene (Miralax) 17 Gm Pack) 17 gm PO DAILY [facility] Stop: 03/31/23 11:29 Last Admin: 03/04/23 07:55 Dose: 17 gm Potassium Chloride (Potassium Chloride Crtab 20 Meq Tabcr) 40 meq PO BID [facility] Stop: 04/01/23 20:59 Last Admin: 03/04/23 07:51 Dose: 40 meq Vitamin B Complex (Vitamin B Complex Tab) 1 tab PO DAILY [facility] Stop: 03/31/23 08:59 Last Admin: 03/04/23 07:55 Dose: 1 tab
[2023-03-04] MEDS: ENOXAPARIN INJ 40 MG/0.4 ML SYR SQ SCH (20:46)
[2023-03-05] MEDS: ACETAMINOPHEN 500 MG TAB PO PRN (05:16)
[2023-03-05] MEDS ORDERED: oxyCODONE HCL IR 5 MG TAB (IMMEDIATE RELEASE) PO PRN (06:05)
[2023-03-05 07:09] LABS: Hematocrit (blood only) 38.9 % (37.0-47.0); Hemoglobin 13.3 g/dl (12.0-16.0); Mean Corpuscular Hemoglobin 25.6 pg (25.0-34.0); Mean Corpuscular Hgb Conc 34.2 g/dL (32.0-36.0); Mean Platelet Volume 9.2 fL (9.4-12.4); Platelet Count 360 K/uL (130-400); RDW Coefficient of Variation 14.4 % (11.5-14.5); RDW Standard Deviation 38.5 fL (36.4-46.3); Red Blood Count 5.19 M/uL (4.20-5.40); White Blood Count 17.68 K/ul (4.8-10.8)
[2023-03-05 07:30] LABS: BUN Creatinine Ratio 36.4 (10-20); Calcium 8.6 mg/dl (8.6-10.3); Creatinine Clr Calc Pharmacy 67.1 ml/min; Est GFR (Non-African American) 82.8 ml/min; Magnesium 1.8 mg/dl (1.7-2.4); Potassium 4.3 mmol/L (3.5-5.1)
--- NOTE | 2023-03-05 07:36 | Nephrology Progress Note ---
Date of Service March 05, 2023 Assessment & Plan (1) Hyponatremia: Plan: - chlorthalidone induced on the background on poor solute intake and respiratory virus/bronchiolitis on CT. 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 past 24 hrs responding to lasix - Target Sodium max 124 for AM tomorrow - Rate of correction has been on target, even slow - Q6h bmp ordered for day light >> specimens are frequently hemolyzed; strongly recommend better access for this pt since we are having trouble getting timely labs - Continue with 1.2 lit total fluid restriction > protein shakes do not count toward fluid limit and should be encouraged >>daily standing weight, I/O ordered >>order in to record po intake >> trying to gauge how well /poorly she's eating > encourage higher protein intake - Replace K to keep levels > 4 and Magnesium > 2.0 ->>> avoid nsaids >>>>>>RESUMED lasix and K this AM after it was held yesterday d/t IV contrast exposure; held x one dose only >weight was 87.9 on 03/04 at 1300 and 83.7 on 03/04 2358 She needs a reliable way to get every 6 hours stat labs for the next several days. RN plans to approach IV team about ultrasound-guided IV. If this does not work recommend PICC or other access. (2) Poorly-controlled hypertension: Plan: improved control past 24 hr > goal is sbp 110-140s -lasix as above -continue atenolol and just upped amlodipine >may need standing hydralazine -f/u pending TTE >> mild plm HTN; normal EF; mild MRgg increase; mild CLVH (3) Viral respiratory infection: Plan: -- as per primary. Admission and Anticipated Discharge Date Admission Date: February 28, 2023 Subjective No interval events. Complains today of distal right lower extremity pain and burning feet. Does not mention left scapular pain, back pain, left arm pain. Does note poor sleep. Review of Systems Review of Systems: All systems reviewed & are unremarkable except as noted in Subjective Physical Exam Constitutional: well developed and well nourished; no acute distress Eyes: EOM intact bilaterally ENMT: Ears: no external ear abnormality Nose: no external nose abnormality Mouth: + dry oral mucous membranes Neck: no nuchal rigidity Respiratory: normal respiratory effort Auscultation: + diminished lung sounds Cardiovascular: RRR, no murmur, no edema Gastrointestinal (Abdomen): Inspection/Auscultation: normal bowel sounds Percussion/Palpation: abdomen soft; abdomen nontender Musculoskeletal: Extremities: strength 5/5 throughout Skin: no rashes, warm and dry Results & Data Vital Signs (Past 12 Hours) Vital Signs Temp Pulse Pulse Resp BP Pulse Ox O2 Del Method 03/05/23 07:03 36.8 C 66 19 100/58 L 95 Room Air 03/05/23 03:30 36.5 C 73 18 141/91 H 97 Room Air 03/04/23 22:29 67 03/04/23 22:30 Room Air 03/04/23 22:15 36.5 C 73 20 157/90 H 94 Room Air 03/04/23 20:00 36.5 C 78 19 131/60 93 Room Air Laboratory Results 03/05/23 06:18 03/05/23 06:18
[2023-03-05] MEDS: ASPIRIN 81 MG ECTAB PO SCH (08:56)
[2023-03-05] MEDS: ATENOLOL 50 MG TABLET PO SCH (08:56)
[2023-03-05] MEDS: amLODIPine BESYLATE 5 MG TAB PO SCH (08:57)
[2023-03-05] MEDS: VITAMIN B COMPLEX TAB PO SCH (08:57)
[2023-03-05] MEDS: POTASSIUM CHLORIDE CRTAB 20 MEQ TABCR PO SCH (08:57)
[2023-03-05] MEDS: LIDOCAINE 5% 1 PATCH TD SCH (08:58)
[2023-03-05] MEDS: POLYETHYLENE (MIRALAX) 17 GM PACK PO SCH (08:58)
[2023-03-05] MEDS: FUROSEMIDE 40 MG/4 ML VIAL IV SCH ×2 (08:59→16:38)
[2023-03-05] MEDS: ATORVASTATIN 10 MG TAB PO SCH (08:59)
[2023-03-05] MEDS ORDERED: LANTUS PER UNIT CHARGE SQ SCH (09:00)
[2023-03-05] MEDS: INSULIN ASPART PER UNIT CHARGE SC SCH ×4 (09:06→21:46)
--- NOTE | 2023-03-05 11:54 | Pharmacy Report ---
Pharmacy Glycemic Short Note 2 - Date of Service March 05, 2023 - Glycemic Short BSG Results (Last 24 hours): 03/04/23 03/04/23 03/04/23 11:04 11:49 11:49 Glucose Cancelled 163 H POC Glucose 180 H 03/04/23 03/04/23 03/05/23 16:22 20:38 06:18 Glucose 162 H POC Glucose 131 H 160 H 03/05/23 03/05/23 07:02 11:09 Glucose POC Glucose 151 H 228 H OUTPATIENT ANTIDIABETIC REGIMEN: * A1c 8.0% ASSESSMENT: 03/05: * Patient received a total of 8 units of insulin yesterday and BSGs were [phone] * Fasting BSGs uptrended somewhat this morning (136->151). Increased basal insulin. If fasting BSG trends up again significantly tomorrow, would consider larger percentage increase in dose. * Novolog CR tightened this morning based on yesterday's data. Lunch BSG elevated today, however, BSG only~2 hrs after morning NovoLog administered so may be somewhat falsely elevated. Will further monitor today's post prandial trends to assess if further tightening is warranted. 03/03: * Patient received 4 units of correctional/prandial insulin yesterday, BSGs [phone] mg/dL * Lantus not given yesterday evening, fasting 126 mg/dL this AM. Will give 5 units this morning * Continue current novolog parameters * Patient with issues getting reliable labs, transferred to ICU status last evening, possible downgrade today 03/02: * A1c of 8.0% indicates diabetes, no previous diagnosis * Fasting below goal this AM- held AM dose, will do reduced scale with dinner * Novolog parameters loosened back to weight based stress of 2 as BSGs have trended downward, no further steroid use 03/01 * 82 YOF with severe asymptomatic hyponatremia, likely diuretic induced. Hyperglycemic, no DM dx, recently on Augmentin and Prednisone, viral respiratory illness. Antibiotic stopped, received Solu-medrol 60mg IV x1 in ER yesterday. * Patient received 10 units Lantus last night, and 14 units Novolog over last 12 hours, blood sugars remaining in 200s - tighten CF/CR and give additional basal. * May need to back off doses as steroid effects diminish. * A1c pending PLAN FOR INPATIENT GLYCEMIC CONTROL: * Basal insulin * Lantus 7 units qAM (increased) * Bolus insulin * NovoLog per scale ACHS or Q6hrs while NPO * Goal Range: Low 110 mg/dL - High 140 mg/dL * Correction Factor: 25 mg/dL/unit * Nutritional / Prandial insulin per carb ratio of 1 unit per 8 grams CHO consumed
--- NOTE | 2023-03-05 12:30 | Ultrasound Report ---
US venous doppler LE RT CLINICAL HISTORY: RLE pain/swelling TECHNIQUE: Right lower extremity real-time compression venous ultrasound with Color Doppler imaging. Utilizing real-time ultrasonic imaging multiple real time high-resolution ultrasonic images with comp ression and noncompression maneuvers of the deep venous system in addition to color doppler imaging w ere performed from the common femoral vein through the proximal calf veins. COMPARISON: None available at the time of this dictation. FINDINGS/IMPRESSION: Currently there is normal compressibility of the deep venous system from the common femoral vein thro ugh the proximal calf veins. No superficial venous thrombosis is identified. ACT 112: Negative or not required by law. Electronically signed by: Antonio Carlos M.D. 03/05/2023 12:28 PM
[2023-03-05] MEDS: GABAPENTIN 100 MG CAP PO SCH ×2 (12:44→20:19)
[2023-03-05 13:13] LABS: BUN Creatinine Ratio 36.5 (10-20); Calcium 8.9 mg/dl (8.6-10.3); Creatinine Clr Calc Pharmacy 59.8 ml/min; Est GFR (African American) 88.1 ml/min; Potassium 4.7 mmol/L (3.5-5.1)
[2023-03-05] MEDS: DICLOFENAC SOD 1% GEL 100 GM TUBE EXT SCH ×2 (14:28→20:19)
--- NOTE | 2023-03-05 15:19 | Hospitalist Progress Note ---
Date of Service March 05, 2023 Assessment & Plan (1) Hyponatremia: (2) Viral respiratory infection: (3) Hypertension: (4) Hyperlipidemia: (5) History of CVA (cerebrovascular accident): (6) Abnormal CT scan, chest: (7) Abnormal thyroid function test: Plan This is an 82-year-old female with PMH of history of CVA with some residual left-sided weakness, hyperlipidemia, obesity SOB and cough x 5 days and was found to have severe hyponatremia on admission. Presented with acute confusion and also unstable eating gait which is now resolved. Severe hyponatremia-sodium 108 on presentation, correcting appropriately now at 120, nephro managing. Likely chlorthalidone-induced hyponatremia on background of poor solute intake and respiratory virus/bronchiolitis, SIADH is a possibility. Low urine and serum osmolality and high random urine sodium. Cortisol level normal. TSH suppressed, T4 elevated. Given 1L NSS in ED with repeat sodium of 110. Nephrology managing hyponatremia. Also seen by professor of physical education. Managed in ICU. Sodium improved to 118, being corrected as per goal. Getting labs regularly. Continue current management and labs- goal sodium of 124 for am tomorrow. Fluid restriction of 1.2 L. 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 TSH suppressed <0.01, T4 elevated 2.2. I have reached out to endo for recommendations whether needs to be started on antithyroid medication here or as OP after endo evaluation. Will discuss with endo for further management DM-2- newly diagnosed. A1c 8. On insulin per glycemic pharmacist. Carb controlled diet. Will not be aggressive given her age and comorbidities. Diabetic neuropathy- burning sensation in sole and pain other body parts could be from neuropathy. US duplex negative for clots. Will start on low dose gabapentin and see response. Voltaren gel for pain. Viral respiratory infection/Parainfluenza 3 infection Parainfluenza 3 detected on viral PCR. No indication to continue Augmentin prescribed in outpatient setting (completed 5 days), completed 5 day prednisone taper Supportive care CT scan did show bronchiolitis- Agree with professor of physical education that no indication for further antibiotic at this time Poorly controlled Hypertension: Uptitrated BP meds, will continue to adjust as indicated for goal SBP of <130. Will not be aggressive given her age Hyperlipidemia:Continue statin History of CVA (cerebrovascular accident):Remote history of CVA with mild left sided weakness. Continue aspirin, statin DVT Ppx: SQ lovenox Code status: FULL Dispo- Continue current inpatient management. Hyponatremia still not at goal. Updated son at bedside Total of 55 minutes spent taking care of the patient with more than 50 percent of time at bedside talking with patient and family, communicating with care team and reviewing chart. Admission and Anticipated Discharge Date Admission Date: February 28, 2023 Subjective Patient was seen and examined at bedside. Son at bedside. Complains of pain left shoulder, chest, calf. Also has burning pain in sole. Otherwise feels fine. Normal oral intake. Voiding without issues. Having regular bowel movements. Physical Exam Physical Exam: General: Sitting comfortably in chair, not in distress, on room air Chest: Diminished breath sounds bilaterally CVS: Regular rate and rhythm, normal heart sounds, no murmur Abdomen: Soft, non tender, not distended, normal bowel sounds Neuro: Awake, alert, oriented, conversing well, non focal Extremities: No cyanosis, clubbing, trace LE edema Results & Data Results & Data Vital Signs (Past 12 Hours) Vital Signs Temp Pulse Pulse Resp BP Pulse Ox O2 Del Method 03/05/23 12:31 Room Air 03/05/23 12:31 72 03/05/23 11:40 36.4 C L 64 15 151/69 H 96 Room Air 03/05/23 09:03 81 168/80 H 03/05/23 07:03 36.8 C 66 19 100/58 L 95 Room Air 03/05/23 03:30 36.5 C 73 18 141/91 H 97 Room Air Laboratory Results Short CBC 03/05/23 Range/Units 06:18 WBC 17.68 H (4.8-10.8) K/ul Hgb 13.3 (12.0-16.0) g/dl Hct 38.9 (37.0-47.0) % Plt Count 360 (130-400) K/uL BMP 03/04/23 03/05/23 03/05/23 14:37 06:18 12:40 Sodium 120 L 118 L* 120 L Potassium 4.5 4.3 4.7 Chloride 78 L 80 L Carbon Dioxide 32 31 BUN 24 H 27 H Creatinine 0.66 0.74 Glucose 162 H 146 H Calcium 8.6 8.9 Diagnostic Findings Venous Doppler Study 03/05/23 06:05 US venous doppler LE RT CLINICAL HISTORY: RLE pain/swelling TECHNIQUE: Right lower extremity real-time compression venous ultrasound with Color Doppler imaging. Utilizing real-time ultrasonic imaging multiple real time high-resolution ultrasonic images with compression and noncompression maneuvers of the deep venous system in addition to color doppler imaging were performed from the common femoral vein through the proximal calf veins. COMPARISON: None available at the time of this dictation. FINDINGS/IMPRESSION: Currently there is normal compressibility of the deep venous system from the common femoral vein through the proximal calf veins. No superficial venous thrombosis is identified. ACT 112: Negative or not required by law. Electronically signed by: Antonio Carlos M.D. 03/05/2023 12:28 PM Medications Administered Current Inpatient Medications Acetaminophen (Acetaminophen 500 Mg Tab) 1,000 mg PO Q8H PRN PRN Reason: Pain Stop: 04/01/23 07:25 Last Admin: 03/05/23 05:16 Dose: 1,000 mg Albuterol (Albuterol 0.5% Neb Soln 2.5 Mg/0.5 Ml Vial) 2.5 mg NEB Q6R PRN; Protocol PRN Reason: wheeze, cough Stop: 03/30/23 20:14 Last Admin: 03/01/23 09:38 Dose: 2.5 mg Amlodipine Besylate (Amlodipine Besylate 5 Mg Tab) 2.5 mg PO QAM [facility] Stop: 04/04/23 08:59 Last Admin: 03/05/23 08:57 Dose: 2.5 mg Aspirin (Aspirin 81 Mg Ectab) 81 mg PO DAILY [facility] Stop: 03/31/23 08:59 Last Admin: 03/05/23 08:56 Dose: 81 mg Atenolol (Atenolol 50 Mg Tablet) 50 mg PO QAM [facility] Stop: 03/31/23 08:59 Last Admin: 03/05/23 08:56 Dose: 50 mg Atorvastatin Calcium (Atorvastatin 10 Mg Tab) 10 mg PO DAILY [facility] Stop: 03/31/23 08:59 Last Admin: 03/05/23 08:59 Dose: 10 mg Dextrose (Dextrose 50% 50 Ml Syringe) 25 - 50 ml IV UD PRN; Protocol PRN Reason: Hypoglycemia Protocol Stop: 03/30/23 20:14 Diclofenac Sodium (Diclofenac Sod 1% Gel 100 Gm Tube) 2 gm EXT TID [facility]; Protocol Stop: 04/04/23 13:59 Last Admin: 03/05/23 14:28 Dose: 2 gm Enoxaparin Sodium (Enoxaparin Inj 40 Mg/0.4 Ml Syr) 40 mg SQ Q24H [facility] Stop: 03/30/23 20:59 Last Admin: 03/04/23 20:46 Dose: 40 mg Furosemide (Furosemide 40 Mg/4 Ml Vial) 40 mg IV BID17 [facility] Stop: 04/02/23 08:59 Last Admin: 03/05/23 08:59 Dose: 40 mg Gabapentin (Gabapentin 100 Mg Cap) 100 mg PO BID [facility] Stop: 04/04/23 10:59 Last Admin: 03/05/23 12:44 Dose: 100 mg Glucagon (Glucagon For Inj 1 Mg Vial) 1 mg SQ UD PRN; Protocol PRN Reason: Hypoglycemia Protocol Stop: 03/30/23 20:14 Glucose (Glucose 10 Tab/Tube) 4 - 8 tab PO UD PRN; Protocol PRN Reason: Hypoglycemia Treatment Stop: 03/30/23 20:14 Glucose (Glucose 40% Gel 15 Gm Tube) 15 - 30 gm PO UD PRN; Protocol PRN Reason: Hypoglycemia Protocol Stop: 03/30/23 20:14 Hydralazine HCl (Hydralazine Hcl 20 Mg/Ml Vial) 10 mg IV Q6H PRN PRN Reason: Blood Pressure - High Stop: 04/01/23 13:14 Insulin Aspart (Insulin Aspart Per Unit Charge) 0 units SC ACHS [facility] Stop: 03/31/23 07:29 Last Admin: 03/05/23 14:27 Dose: 11 units Insulin Glargine (Lantus Per Unit Charge) 7 units SQ QAM [facility]; Protocol Stop: 04/04/23 08:59 Last Admin: 03/05/23 09:06 Dose: 7 units Lidocaine (Lidocaine 5% 1 Patch) 1 patch TD QAM [facility] Stop: 04/01/23 20:59 Last Admin: 03/05/23 08:58 Dose: 1 patch Menthol (Cough Drop (Sugar Free) Jerson 24 Jerson/1 Box) 1 jerson BUCCAL QID PRN PRN Reason: Sore Throat Stop: 03/30/23 20:14 Last Admin: 03/02/23 16:08 Dose: 24 jerson Miscellaneous (Carbohydrates For Hypoglycemia ) 15 - 30 gm PO UD PRN PRN Reason: Hypoglycemia Protocol Stop: 03/30/23 20:14 Miscellaneous (Remove Lidoderm Patch) 1 each N/A DAILY@2100 [facility] Stop: 04/01/23 20:59 Last Admin: 03/04/23 20:40 Dose: 1 each Miscellaneous Information (Pharmacy Glycemic Mgmt Consult) 1 each N/A UD PRN; Protocol PRN Reason: Consult Stop: 03/30/23 18:37 Oxycodone HCl (Oxycodone Hcl Ir 5 Mg Tab (Immediate Release)) 5 - 10 mg PO QID PRN PRN Reason: Pain Stop: 03/19/23 06:04 Last Admin: 03/05/23 06:15 Dose: 5 mg Polyethylene Glycol (Polyethylene (Miralax) 17 Gm Pack) 17 gm PO DAILY [facility] Stop: 03/31/23 11:29 Last Admin: 03/05/23 08:58 Dose: Not Given Potassium Chloride (Potassium Chloride Crtab 20 Meq Tabcr) 40 meq PO BID [facility] Stop: 04/01/23 20:59 Last Admin: 03/05/23 08:57 Dose: 40 meq Vitamin B Complex (Vitamin B Complex Tab) 1 tab PO DAILY [facility] Stop: 03/31/23 08:59 Last Admin: 03/05/23 08:57 Dose: 1 tab
[2023-03-05 18:16] LABS: BUN Creatinine Ratio 38.4 (10-20); Calcium 8.8 mg/dl (8.6-10.3); Creatinine Clr Calc Pharmacy 60.6 ml/min; Est GFR (African American) 89.5 ml/min; Est GFR (Non-African American) 77.2 ml/min; Potassium 4.6 mmol/L (3.5-5.1)
[2023-03-05] MEDS: ENOXAPARIN INJ 40 MG/0.4 ML SYR SQ SCH (20:19)
[2023-03-05] MEDS: DEXTROSE 50% 50 ML SYRINGE IV PRN ×2 (20:45→21:27)
[2023-03-06] MEDS ORDERED: INSULIN ASPART PER UNIT CHARGE SC SCH (02:00)
[2023-03-06 06:11] LABS: Hematocrit (blood only) 33.9 % (37.0-47.0); Hemoglobin 11.7 g/dl (12.0-16.0); Mean Corpuscular Hemoglobin 25.6 pg (25.0-34.0); Mean Corpuscular Hgb Conc 34.5 g/dL (32.0-36.0); Mean Corpuscular Volume 74.2 fL (80.0-100.0); Mean Platelet Volume 9.1 fL (9.4-12.4); Platelet Count 319 K/uL (130-400); RDW Coefficient of Variation 14.6 % (11.5-14.5); RDW Standard Deviation 39.1 fL (36.4-46.3); Red Blood Count 4.57 M/uL (4.20-5.40); White Blood Count 20.13 K/ul (4.8-10.8)
[2023-03-06 06:31] LABS: BUN Creatinine Ratio 42.5 (10-20); Calcium 8.3 mg/dl (8.6-10.3); Est GFR (African American) 89.5 ml/min; Est GFR (Non-African American) 77.2 ml/min; Potassium 4.3 mmol/L (3.5-5.1)
[2023-03-06 06:35] LABS: Thyroid Stimulating Hormone < 0.010 uIu/ml (0.300-4.500)
[2023-03-06 07:09] LABS: T4 Free Thyroxine 2.11 ng/dl (0.61-1.60)
[2023-03-06] MEDS: ASPIRIN 81 MG ECTAB PO SCH (08:25)
[2023-03-06] MEDS: ATORVASTATIN 10 MG TAB PO SCH (08:25)
[2023-03-06] MEDS: amLODIPine BESYLATE 5 MG TAB PO SCH (08:25)
[2023-03-06] MEDS: ATENOLOL 50 MG TABLET PO SCH (08:25)
[2023-03-06] MEDS: POTASSIUM CHLORIDE CRTAB 20 MEQ TABCR PO SCH (08:26)
[2023-03-06] MEDS: GABAPENTIN 100 MG CAP PO SCH ×2 (08:26→20:16)
[2023-03-06] MEDS: FUROSEMIDE 40 MG/4 ML VIAL IV SCH ×2 (08:26→20:14)
[2023-03-06] MEDS: DICLOFENAC SOD 1% GEL 100 GM TUBE EXT SCH ×3 (08:26→20:15)
[2023-03-06] MEDS: VITAMIN B COMPLEX TAB PO SCH (08:26)
[2023-03-06] MEDS: POLYETHYLENE (MIRALAX) 17 GM PACK PO SCH (08:27)
[2023-03-06] MEDS: LIDOCAINE 5% 1 PATCH TD SCH (08:27)
[2023-03-06] MEDS: INSULIN ASPART PER UNIT CHARGE SC SCH ×4 (08:52→20:41)
[2023-03-06] MEDS ORDERED: LANTUS PER UNIT CHARGE SQ SCH (09:00)
[2023-03-06] MEDS ORDERED: methIMAzole 5 MG TABLET PO SCH (09:00)
[2023-03-06] MEDS: DOXYCYCLINE HYCLATE 100 MG CAP PO SCH ×2 (09:26→20:15)
--- NOTE | 2023-03-06 10:29 | Pharmacy Report ---
Pharmacy Glycemic Short Note 2 - Date of Service March 06, 2023 - Glycemic Short BSG Results (Last 24 hours): 03/05/23 03/05/23 03/05/23 11:09 12:40 16:29 Glucose 146 H POC Glucose 228 H 107 H 03/05/23 03/05/23 03/05/23 17:33 20:25 20:29 Glucose 69 L POC Glucose 45 L* 41 L* 03/05/23 03/05/23 03/05/23 20:42 21:14 21:49 Glucose POC Glucose 39 L* 50 L* 378 H* 03/05/23 03/05/23 03/06/23 21:51 23:43 01:53 Glucose POC Glucose 418 H* 298 H 224 H 03/06/23 03/06/23 03/06/23 05:34 07:35 07:56 Glucose 95 POC Glucose 64 L* 90 OUTPATIENT ANTIDIABETIC REGIMEN: * No antidiabetic medications at home * HbA1c: 8.0% (03/01/23) ASSESSMENT: 03/06: * Patient received 25 units of insulin yesterday, 7 units basal + 18 units bolus. BSGs yesterday were: [phone] mg/dL. * Patient was hypoglycemic at bedtime with initial BSG of 45 then repeats of 41 and 39 mg/dL. RN administered 8 glucose tabs and 2 amps of D50. BSGs trended up to 378 and 418 mg/dL. Of note, patient was asymptomatic. * Fasting BSG this AM was again low at 64 mg/dL. Patient was asymptomatic and was given breakfast meal to treat hypoglycemia. * Will discontinue basal insulin at this time. * Novolog was loosened last evening. No changes as of now but depending on lunch BSG, may loosen Novolog further. 03/05: * Patient received a total of 8 units of insulin yesterday and BSGs were [phone] * Fasting BSGs uptrended somewhat this morning (136->151). Increased basal insulin. If fasting BSG trends up again significantly tomorrow, would consider larger percentage increase in dose. * Novolog CR tightened this morning based on yesterday's data. Lunch BSG elevated today, however, BSG only~2 hrs after morning NovoLog administered so may be somewhat falsely elevated. Will further monitor today's post prandial trends to assess if further tightening is warranted. PLAN FOR INPATIENT GLYCEMIC CONTROL: * Basal insulin * Discontinued * Bolus insulin * NovoLog per scale ACHS or Q6hrs while NPO * Goal Range: Low 110 mg/dL - High 140 mg/dL * Correction Factor: 30 mg/dL/unit * Nutritional / Prandial insulin per carb ratio of 1 unit per 10 grams CHO consumed
--- NOTE | 2023-03-06 11:42 | Hospitalist Progress Note ---
Date of Service March 06, 2023 Assessment & Plan (1) Hyponatremia: (2) Viral respiratory infection: (3) Hypertension: (4) Hyperlipidemia: (5) History of CVA (cerebrovascular accident): (6) Abnormal CT scan, chest: (7) Abnormal thyroid function test: Plan This is an 82-year-old female with PMH of history of CVA with some residual left-sided weakness, hyperlipidemia, obesity SOB and cough x 5 days and was found to have severe hyponatremia on admission. Presented with acute confusion and also unstable eating gait which is now resolved. Severe hyponatremia-sodium 108 on presentation, correcting appropriately now at 123, nephro managing. 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 Low urine and serum osmolality and high random urine sodium. Cortisol level normal. TSH suppressed,fT4 elevated, fT3 normal Nephrology managing hyponatremia and currently improving as expected, at goal, currently 123. On fluid restriction, Lasix, regular BMP. She was initially in ICU and now transferred out and stable. 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 Does not have overt hypothyroid symptoms. TSH suppressed <0.01, T4 elevated 2.2, free T3 normal, thyroid receptor antibody pending. Discussed with Dr Barker and recommended starting methimazole and outpatient follow up with endo in 3 weeks. Started on methimazole DM-2- newly diagnosed. A1c 8. On insulin per glycemic pharmacist. Carb controlled diet. Will not be aggressive given her age and comorbidities. Diabetic neuropathy- burning sensation in sole and pain other body parts could be from neuropathy, currently resolved after gabapentin and Voltaren gel. US duplex negative for clots Leukocytosis- unexplained, trending up, no focal source on exam except for some urinary issues. Procalcitonin negative. Will check UA. Will start on doxycycline given recent respiratory symptoms and possible UTI. Follow-up UA Viral respiratory infection/Parainfluenza 3 infection Parainfluenza 3 detected on viral PCR. No indication to continue Augmentin prescribed in outpatient setting (completed 5 days), completed 5 day prednisone taper Supportive care CT scan did show bronchiolitis- Agree with unit leader that no indication for further antibiotic at this time Poorly controlled Hypertension: Uptitrated BP meds and BP now much better. Goal SBP of <130. Will not be aggressive given her age Hyperlipidemia: Continue statin History of CVA (cerebrovascular accident):Remote history of CVA with mild left sided weakness. Continue aspirin, statin DVT Ppx: SQ lovenox Code status: FULL Dispo- Continue current inpatient management. Hyponatremia still not at goal. Updated son at bedside Total of 45 minutes spent taking care of the patient with more than 50 percent of time at bedside talking with patient and family, communicating with care team and reviewing chart. Admission and Anticipated Discharge Date Admission Date: February 28, 2023 Subjective Patient was seen and examined at bedside in presence of her son. She continues to feel better. She had good dinner and breakfast. She had a good night sleep. Currently denies any pain. She is concerned that she is weak. Complains of dribbling and incomplete voiding but no dysuria or fever. Having regular bowel movements. No other issues. Physical Exam Physical Exam: General: Sitting comfortably in chair, not in distress, on room air Chest: Diminished breath sounds bilaterally CVS: Regular rate and rhythm, normal heart sounds, no murmur Abdomen: Soft, non tender, not distended, normal bowel sounds Neuro: Awake, alert, oriented, conversing well, non focal Extremities: No cyanosis, clubbing, trace LE edema Results & Data Results & Data Vital Signs (Past 12 Hours) Vital Signs Temp Pulse Pulse Resp BP Pulse Ox O2 Del Method 03/06/23 07:45 Room Air 03/06/23 07:45 70 03/06/23 08:35 36.8 C 78 22 117/63 96 Room Air 03/06/23 05:55 133/55 L 03/06/23 04:33 36.6 C 73 18 95/51 L 96 Room Air Laboratory Results Short CBC 03/06/23 Range/Units 05:34 WBC 20.13 H (4.8-10.8) K/ul Hgb 11.7 L (12.0-16.0) g/dl Hct 33.9 L (37.0-47.0) % Plt Count 319 (130-400) K/uL BMP 03/05/23 03/05/23 03/06/23 12:40 17:33 05:34 Sodium 120 L 122 L 123 L Potassium 4.7 4.6 4.3 Chloride 80 L 83 L 85 L Carbon Dioxide 31 31 33 H BUN 27 H 28 H 31 H Creatinine 0.74 0.73 0.73 Glucose 146 H 69 L 95 Calcium 8.9 8.8 8.3 L Medications Administered Current Inpatient Medications Acetaminophen (Acetaminophen 500 Mg Tab) 1,000 mg PO Q8H PRN PRN Reason: Pain Stop: 04/01/23 07:25 Last Admin: 03/05/23 05:16 Dose: 1,000 mg Albuterol (Albuterol 0.5% Neb Soln 2.5 Mg/0.5 Ml Vial) 2.5 mg NEB Q6R PRN; Protocol PRN Reason: wheeze, cough Stop: 03/30/23 20:14 Last Admin: 03/01/23 09:38 Dose: 2.5 mg Amlodipine Besylate (Amlodipine Besylate 5 Mg Tab) 2.5 mg PO QAM [facility] Stop: 04/04/23 08:59 Last Admin: 03/06/23 08:25 Dose: 2.5 mg Aspirin (Aspirin 81 Mg Ectab) 81 mg PO DAILY [facility] Stop: 03/31/23 08:59 Last Admin: 03/06/23 08:25 Dose: 81 mg Atenolol (Atenolol 50 Mg Tablet) 50 mg PO QAM [facility] Stop: 03/31/23 08:59 Last Admin: 03/06/23 08:25 Dose: 50 mg Atorvastatin Calcium (Atorvastatin 10 Mg Tab) 10 mg PO DAILY [facility] Stop: 03/31/23 08:59 Last Admin: 03/06/23 08:25 Dose: 10 mg Dextrose (Dextrose 50% 50 Ml Syringe) 25 - 50 ml IV UD PRN; Protocol PRN Reason: Hypoglycemia Protocol Stop: 03/30/23 20:14 Last Admin: 03/05/23 21:27 Dose: 50 ml Diclofenac Sodium (Diclofenac Sod 1% Gel 100 Gm Tube) 2 gm EXT TID [facility]; Protocol Stop: 04/04/23 13:59 Last Admin: 03/06/23 08:26 Dose: 2 gm Doxycycline Hyclate (Doxycycline Hyclate 100 Mg Cap) 100 mg PO BID [facility] Stop: 03/13/23 08:59 Last Admin: 03/06/23 09:26 Dose: 100 mg Enoxaparin Sodium (Enoxaparin Inj 40 Mg/0.4 Ml Syr) 40 mg SQ Q24H [facility] Stop: 03/30/23 20:59 Last Admin: 03/05/23 20:19 Dose: 40 mg Furosemide (Furosemide 40 Mg/4 Ml Vial) 40 mg IV [id number] [facility] Stop: 04/02/23 08:59 Last Admin: 03/06/23 08:26 Dose: 40 mg Gabapentin (Gabapentin 100 Mg Cap) 100 mg PO BID [facility] Stop: 04/04/23 10:59 Last Admin: 03/06/23 08:26 Dose: 100 mg Glucagon (Glucagon For Inj 1 Mg Vial) 1 mg SQ UD PRN; Protocol PRN Reason: Hypoglycemia Protocol Stop: 03/30/23 20:14 Glucose (Glucose 10 Tab/Tube) 4 - 8 tab PO UD PRN; Protocol PRN Reason: Hypoglycemia Treatment Stop: 03/30/23 20:14 Last Admin: 03/05/23 20:36 Dose: 8 tab Glucose (Glucose 40% Gel 15 Gm Tube) 15 - 30 gm PO UD PRN; Protocol PRN Reason: Hypoglycemia Protocol Stop: 03/30/23 20:14 Hydralazine HCl (Hydralazine Hcl 20 Mg/Ml Vial) 10 mg IV Q6H PRN PRN Reason: Blood Pressure - High Stop: 04/01/23 13:14 Insulin Aspart (Insulin Aspart Per Unit Charge) 0 units SC [facility]; Protocol Stop: 03/31/23 07:29 Last Admin: 03/06/23 08:52 Dose: 3 units Lidocaine (Lidocaine 5% 1 Patch) 1 patch TD QAM [facility] Stop: 04/01/23 20:59 Last Admin: 03/06/23 08:27 Dose: 1 patch Menthol (Cough Drop (Sugar Free) Jerson 24 Jerson/1 Box) 1 jerson BUCCAL QID PRN PRN Reason: Sore Throat Stop: 03/30/23 20:14 Last Admin: 03/02/23 16:08 Dose: 24 jerson Methimazole (Methimazole 5 Mg Tablet) 5 mg PO DAILY [facility] Stop: 04/05/23 08:59 Last Admin: 03/06/23 09:26 Dose: 5 mg Miscellaneous (Carbohydrates For Hypoglycemia ) 15 - 30 gm PO UD PRN PRN Reason: Hypoglycemia Protocol Stop: 03/30/23 20:14 Last Admin: 03/06/23 07:39 Dose: 15 gm Miscellaneous (Remove Lidoderm Patch) 1 each N/A DAILY@2100 [facility] Stop: 04/01/23 20:59 Last Admin: 03/05/23 20:24 Dose: 1 each Miscellaneous Information (Pharmacy Glycemic Mgmt Consult) 1 each N/A UD PRN; Protocol PRN Reason: Consult Stop: 03/30/23 18:37 Oxycodone HCl (Oxycodone Hcl Ir 5 Mg Tab (Immediate Release)) 5 - 10 mg PO QID PRN PRN Reason: Pain Stop: 03/19/23 06:04 Last Admin: 03/05/23 06:15 Dose: 5 mg Polyethylene Glycol (Polyethylene (Miralax) 17 Gm Pack) 17 gm PO DAILY [facility] Stop: 03/31/23 11:29 Last Admin: 03/06/23 08:27 Dose: 17 gm Potassium Chloride (Potassium Chloride Crtab 20 Meq Tabcr) 40 meq PO DAILY [facility] Stop: 04/05/23 08:59 Last Admin: 03/06/23 08:26 Dose: 40 meq Vitamin B Complex (Vitamin B Complex Tab) 1 tab PO DAILY [facility] Stop: 03/31/23 08:59 Last Admin: 03/06/23 08:26 Dose: 1 tab
[2023-03-06 12:28] LABS: Appearance Urine Clear (Clear); Bilirubin Urine Negative (Negative); Blood Urine Negative (Negative); Color Urine Yellow; Glucose Urine UA 1+ (Negative); Ketones Urine Negative (Negative); Leukocyte Esterase Urine Negative (Negative); Nitrite Urine Negative (Negative); Protein Urine Negative (Negative); Specific Gravity Urine 1.009 (1.000-1.030); Urobilinogen Urine Negative (Negative); pH Urine 6.5 (4.5-7.5)
--- NOTE | 2023-03-06 14:29 | Nephrology Progress Note ---
Date of Service March 06, 2023 Assessment & Plan (1) Hyponatremia: Plan: - chlorthalidone induced on the background on poor solute intake and respiratory virus/bronchiolitis on CT. 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 past 24 hrs responding to lasix - Target Sodium max 124 for AM tomorrow - Rate of correction has been on target, even slow - Q6h bmp ordered for day light >> specimens are frequently hemolyzed; strongly recommend better access for this pt since we are having trouble getting timely labs - Continue with 1.2 lit total fluid restriction > protein shakes do not count toward fluid limit and should be encouraged >>daily standing weight, I/O ordered >>order in to record po intake >> trying to gauge how well /poorly she's eating > encourage higher protein intake - Replace K to keep levels > 4 and Magnesium > 2.0 ->>> avoid nsaids >>>>>>RESUMED lasix and K March 05 AM after it was held March 04 d/t IV contrast exposure; held x one dose only > has been getting bid dosing--we will give extra Lasix dosing 40 mg IV today for 3 doses total as well as extra potassium 40 mill equivalent dose >weight was 87.9 on 03/04 at 1300 and 83.7 on 03/04 2358 and 84.7 on March 06 at 6 :30 AM -Daily BMP for now RN plans to approach IV team about ultrasound-guided IV. If this does not work recommend PICC or other access. (2) Poorly-controlled hypertension: Plan: improved control past 24 hr > goal is sbp 110-140s -lasix as above -continue atenolol and just stopped with increased Lasix her amlodipine >may need standing hydralazine -f/u pending TTE >> mild plm HTN; normal EF; mild MRgg increase; mild [facility] (3) Viral respiratory infection: Plan: -- as per primary. Admission and Anticipated Discharge Date Admission Date: February 28, 2023 Subjective Seen on afternoon rounds. No acute interval events. Review of Systems Review of Systems: All systems reviewed & are unremarkable except as noted in Subjective Physical Exam Constitutional: well developed and well nourished; no acute distress (Lying flat on her left side) Eyes: EOM intact bilaterally ENMT: Ears: no external ear abnormality Nose: no external nose abnormality Mouth: + dry oral mucous membranes Neck: no nuchal rigidity Respiratory: normal respiratory effort Auscultation: + diminished lung sounds and + rhonchi Cardiovascular: RRR, no murmur, no edema Gastrointestinal (Abdomen): Inspection/Auscultation: normal bowel sounds Percussion/Palpation: abdomen soft; abdomen nontender Musculoskeletal: Extremities: strength 5/5 throughout Skin: no rashes, warm and dry Neurologic: Moves all extremities, fluent speech, no tremor Results & Data Vital Signs (Past 12 Hours) Vital Signs Temp Pulse Pulse Resp BP Pulse Ox O2 Del Method 03/06/23 12:13 36.5 C 69 18 143/74 H 93 Room Air 03/06/23 07:45 Room Air 03/06/23 07:45 70 03/06/23 08:35 36.8 C 78 22 117/63 96 Room Air 03/06/23 05:55 133/55 L 03/06/23 04:33 36.6 C 73 18 95/51 L 96 Room Air Laboratory Results 03/06/23 05:34 03/06/23 05:34
[2023-03-06] MEDS ORDERED: FUROSEMIDE 40 MG/4 ML VIAL IV STA (14:30)
[2023-03-06] MEDS ORDERED: POTASSIUM CHLORIDE CRTAB 20 MEQ TABCR PO ONE (20:00)
[2023-03-06] MEDS: ENOXAPARIN INJ 40 MG/0.4 ML SYR SQ SCH (20:16)
[2023-03-06] MEDS: methIMAzole 5 MG TABLET PO SCH (20:17)
[2023-03-06] MEDS: guaiFENesin SUGAR FREE 200 MG/10 ML UDC PO PRN (21:33)
[2023-03-07] MEDS: FUROSEMIDE 40 MG/4 ML VIAL IV SCH ×3 (05:38→18:03)
[2023-03-07 06:28] LABS: Hematocrit (blood only) 35.4 % (37.0-47.0); Hemoglobin 11.9 g/dl (12.0-16.0); Mean Corpuscular Hemoglobin 25.6 pg (25.0-34.0); Mean Corpuscular Hgb Conc 33.6 g/dL (32.0-36.0); Mean Corpuscular Volume 76.3 fL (80.0-100.0); Platelet Count 325 K/uL (130-400); RDW Coefficient of Variation 14.5 % (11.5-14.5); RDW Standard Deviation 39.5 fL (36.4-46.3); Red Blood Count 4.64 M/uL (4.20-5.40); White Blood Count 16.98 K/ul (4.8-10.8)
[2023-03-07 06:48] LABS: BUN Creatinine Ratio 45.1 (10-20); Calcium 8.3 mg/dl (8.6-10.3); Est GFR (African American) 77.8 ml/min; Est GFR (Non-African American) 67.1 ml/min; Potassium 4.7 mmol/L (3.5-5.1)
[2023-03-07] MEDS: ATORVASTATIN 10 MG TAB PO SCH (08:09)
[2023-03-07] MEDS: methIMAzole 5 MG TABLET PO SCH ×2 (08:09→20:07)
[2023-03-07] MEDS: ASPIRIN 81 MG ECTAB PO SCH (08:09)
[2023-03-07] MEDS: POTASSIUM CHLORIDE CRTAB 20 MEQ TABCR PO SCH (08:09)
[2023-03-07] MEDS: GABAPENTIN 100 MG CAP PO SCH ×2 (08:09→20:10)
[2023-03-07] MEDS: ATENOLOL 50 MG TABLET PO SCH (08:09)
[2023-03-07] MEDS: VITAMIN B COMPLEX TAB PO SCH (08:09)
[2023-03-07] MEDS: DOXYCYCLINE HYCLATE 100 MG CAP PO SCH ×2 (08:10→20:06)
[2023-03-07] MEDS: DICLOFENAC SOD 1% GEL 100 GM TUBE EXT SCH ×3 (08:10→20:06)
[2023-03-07] MEDS: POLYETHYLENE (MIRALAX) 17 GM PACK PO SCH (08:10)
[2023-03-07] MEDS: LIDOCAINE 5% 1 PATCH TD SCH (08:10)
[2023-03-07] MEDS: INSULIN ASPART PER UNIT CHARGE SC SCH ×4 (08:18→20:29)
[2023-03-07] MEDS: LANTUS PER UNIT CHARGE SQ SCH (08:18)
--- NOTE | 2023-03-07 08:31 | Nephrology Progress Note ---
Date of Service March 07, 2023 Assessment & Plan (1) Hyponatremia: Plan: -improving and chlorthalidone induced on the background on poor solute intake and respiratory virus/bronchiolitis on CT. 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 past 24 hrs responding to lasix - Target Sodium max 131 for AM tomorrow - Rate of correction has been on target, even slow > protein shakes do not count toward fluid limit and should be encouraged >>daily standing weight, I/O ordered >>order in to record po intake >> trying to gauge how well /poorly she's eating > encourage higher protein intake - Replace K to keep levels > 4 and Magnesium > 2.0 ->>> avoid nsaids >continue lasix 40 IV at 0600, noon, 1800 -cont K 40 mEq daily for now >liberalized FR to 1.5L >weight was 87.9 on 03/04 at 1300 and 83.7 on 03/04 2358 and 84.7 on March 06 at 6:30 AM > 83.7 03/07 at 630 -Daily BMP for now Care coordinated with Dr Hendrix (2) Poorly-controlled hypertension: Plan: improved control past 24 hr even a few low readings> goal is sbp 110-140s -lasix as above w/ hold parameters -lowered atenolol dose to 12.5 mg bid from 50 bid; stopped amlodipine 03/06 TTE >> mild plm HTN; normal EF; mild MRgg increase; mild [facility] (3) Viral respiratory infection: Plan: -- as per primary. Admission and Anticipated Discharge Date Admission Date: February 28, 2023 Subjective slept better, eating better as well; c/o feeling cold. Review of Systems Review of Systems: All systems reviewed & are unremarkable except as noted in Subjective Physical Exam Constitutional: well developed and well nourished; no acute distress (sitting up in chair) Eyes: EOM intact bilaterally ENMT: Ears: no external ear abnormality Nose: no external nose abnormality Mouth: + dry oral mucous membranes Neck: no nuchal rigidity Respiratory: normal respiratory effort Auscultation: + diminished lung sounds Cardiovascular: RRR, no murmur, no edema Gastrointestinal (Abdomen): Inspection/Auscultation: normal bowel sounds Percussion/Palpation: abdomen soft; abdomen nontender Musculoskeletal: Extremities: strength 5/5 throughout Skin: no rashes, warm and dry Results & Data Vital Signs (Past 12 Hours) Vital Signs Temp Pulse Pulse Resp BP Pulse Ox O2 Del Method 03/07/23 07:27 36.5 C 72 14 106/77 95 Room Air 03/07/23 02:37 36.4 C L 65 16 102/52 L 96 Room Air 03/06/23 23:45 59 L 03/06/23 22:38 36.4 C L 72 16 125/73 93 Room Air 03/06/23 21:20 Room Air Laboratory Results 03/07/23 06:06 03/07/23 06:06
--- NOTE | 2023-03-07 08:31 | XRay Report ---
XR chest 1V portable CLINICAL HISTORY: Cough. COMPARISON STUDY: Chest CT March 03, 2023. FINDINGS: Lung volumes are normal. Lungs are clear. There is no pneumothorax or pleural effusion. Sta ble cardiomegaly. Mediastinal contours are normal. There is no evidence for pulmonary edema. IMPRESSION: No acute cardiopulmonary findings. No change in appearance of the chest. ACT 112: Negative or not required by law. Electronically signed by: Haim Rolon M.D. 03/07/2023 8:30 AM
[2023-03-07] MEDS: UREA (UREA-NA) 15 GM PACK PO SCH ×2 (08:44→20:06)
--- NOTE | 2023-03-07 11:02 | Hospitalist Progress Note ---
Date of Service March 07, 2023 Assessment & Plan (1) Hyponatremia: (2) Viral respiratory infection: (3) Hypertension: (4) Hyperlipidemia: (5) History of CVA (cerebrovascular accident): (6) Abnormal CT scan, chest: (7) Abnormal thyroid function test: Plan This is an 82-year-old female with PMH of history of CVA with some residual left-sided weakness, hyperlipidemia, obesity SOB and cough x 5 days and was found to have severe hyponatremia on admission. Presented with acute confusion and also unstable eating gait which is now resolved. Severe hyponatremia-sodium 108->111->115->118->122->123->125 correcting appropriately although slow, nephro managing. 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 Low urine and serum osmolality and high random urine sodium. Cortisol level normal. TSH suppressed,fT4 elevated, fT3 normal Nephrology managing-on IV Lasix, fluid restriction. Now urea added 03/07/23. 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 Does not have overt hypothyroid symptoms. TSH suppressed <0.01, T4 elevated 2.2, free T3 normal, thyroid receptor antibody pending. Discussed with Dr Barker and recommended starting methimazole and outpatient follow up with endo in 3 weeks. Started on methimazole DM-2- newly diagnosed. A1c 8. On insulin per glycemic pharmacist. Carb controlled diet. Will not be aggressive given her age and comorbidities. Diabetic neuropathy- burning sensation in sole and pain other body parts could be from neuropathy, currently resolved after gabapentin and Voltaren gel. US duplex negative for clots Leukocytosis-nowtrending down, UA unremarkable, continue doxycycline given her recent respiratory symptoms. Procalcitonin negative. Viral respiratory infection/Parainfluenza 3 infection Parainfluenza 3 detected on viral PCR. No indication to continue Augmentin prescribed in outpatient setting (completed 5 days), completed 5 day prednisone taper Supportive care CT scan did show bronchiolitis- Agree with maintenance craftsman that no indication for further antibiotic at this time Essential hypertension: BP much improved, continue current meds, goal SBP of <130. Will not be aggressive given her age Hyperlipidemia: Continue statin History of CVA (cerebrovascular accident):Remote history of CVA with mild left sided weakness. Continue aspirin, statin DVT Ppx: SQ lovenox Code status: FULL Dispo-transfer to [facility]. Telemetry unremarkable and will discontinue telemetry. hyponatremia not yet resolved. PT OT evaluation pending Updated son at bedside Admission and Anticipated Discharge Date Admission Date: February 28, 2023 Subjective Patient was seen and examined at bedside. She feels cold and felt better after more warm blankets. Pain is better. Appetite is improved. Regular bowel movements. Voiding without issues. She is concerned about her strength and is worried if she will be able to walk with confidence. Son was updated at bedside. Physical Exam Physical Exam: General: Sitting comfortably in chair, not in distress, on room air Chest: Diminished breath sounds bilaterally CVS: Regular rate and rhythm, normal heart sounds, no murmur Abdomen: Soft, non tender, not distended, normal bowel sounds Neuro: Awake, alert, oriented, conversing well, non focal Extremities: No cyanosis, clubbing, trace LE edema Results & Data Results & Data Vital Signs (Past 12 Hours) Vital Signs Temp Pulse Pulse Resp BP Pulse Ox O2 Del Method 03/07/23 07:45 Room Air 03/07/23 07:45 67 03/07/23 07:27 36.5 C 72 14 106/77 95 Room Air 03/07/23 02:37 36.4 C L 65 16 102/52 L 96 Room Air 03/06/23 23:45 59 L Laboratory Results Short CBC 03/07/23 Range/Units 06:06 WBC 16.98 H (4.8-10.8) K/ul Hgb 11.9 L (12.0-16.0) g/dl Hct 35.4 L (37.0-47.0) % Plt Count 325 (130-400) K/uL BMP 03/07/23 06:06 Sodium 125 L Potassium 4.7 Chloride 85 L Carbon Dioxide 32 BUN 37 H Creatinine 0.82 Glucose 134 H Calcium 8.3 L Urine 03/06/23 Range/Units Unknown Urine Color Yellow Urine Appearance Clear (Clear) Urine pH 6.5 (4.5-7.5) Ur Specific [place] 1.009 (1.000-1.030) Urine Protein Negative (Negative) Urine Glucose (UA) 1+ H (Negative) Medications Administered Current Inpatient Medications Acetaminophen (Acetaminophen 500 Mg Tab) 1,000 mg PO Q8H PRN PRN Reason: Pain Stop: 04/01/23 07:25 Last Admin: 03/05/23 05:16 Dose: 1,000 mg Albuterol (Albuterol 0.5% Neb Soln 2.5 Mg/0.5 Ml Vial) 2.5 mg NEB Q6R PRN; Protocol PRN Reason: wheeze, cough Stop: 03/30/23 20:14 Last Admin: 03/01/23 09:38 Dose: 2.5 mg Aspirin (Aspirin 81 Mg Ectab) 81 mg PO DAILY [facility] Stop: 03/31/23 08:59 Last Admin: 03/07/23 08:09 Dose: 81 mg Atenolol (Atenolol 50 Mg Tablet) 12.5 mg PO QAM [facility] Stop: 04/07/23 08:59 Atorvastatin Calcium (Atorvastatin 10 Mg Tab) 10 mg PO DAILY [facility] Stop: 03/31/23 08:59 Last Admin: 03/07/23 08:09 Dose: 10 mg Dextrose (Dextrose 50% 50 Ml Syringe) 25 - 50 ml IV UD PRN; Protocol PRN Reason: Hypoglycemia Protocol Stop: 03/30/23 20:14 Last Admin: 03/05/23 21:27 Dose: 50 ml Diclofenac Sodium (Diclofenac Sod 1% Gel 100 Gm Tube) 2 gm EXT TID [facility]ERNA; Protocol Stop: 04/04/23 13:59 Last Admin: 03/07/23 08:10 Dose: 2 gm Doxycycline Hyclate (Doxycycline Hyclate 100 Mg Cap) 100 mg PO BID [facility] Stop: 03/13/23 08:59 Last Admin: 03/07/23 08:10 Dose: 100 mg Enoxaparin Sodium (Enoxaparin Inj 40 Mg/0.4 Ml Syr) 40 mg SQ Q24H [facility] Stop: 03/30/23 20:59 Last Admin: 03/06/23 20:16 Dose: 40 mg Furosemide (Furosemide 40 Mg/4 Ml Vial) 40 mg IV TID@0600,1200,1800 [facility] Stop: 04/06/23 11:59 Gabapentin (Gabapentin 100 Mg Cap) 100 mg PO BID [facility] Stop: 04/04/23 10:59 Last Admin: 03/07/23 08:09 Dose: 100 mg Glucagon (Glucagon For Inj 1 Mg Vial) 1 mg SQ UD PRN; Protocol PRN Reason: Hypoglycemia Protocol Stop: 03/30/23 20:14 Glucose (Glucose 10 Tab/Tube) 4 - 8 tab PO UD PRN; Protocol PRN Reason: Hypoglycemia Treatment Stop: 03/30/23 20:14 Last Admin: 03/05/23 20:36 Dose: 8 tab Glucose (Glucose 40% Gel 15 Gm Tube) 15 - 30 gm PO UD PRN; Protocol PRN Reason: Hypoglycemia Protocol Stop: 03/30/23 20:14 Guaifenesin (Guaifenesin Sugar Free 200 Mg/10 Ml Udc) 200 mg PO Q6H PRN PRN Reason: Cough Stop: 04/05/23 21:16 Last Admin: 03/06/23 21:33 Dose: 200 mg Hydralazine HCl (Hydralazine Hcl 20 Mg/Ml Vial) 10 mg IV Q6H PRN PRN Reason: Blood Pressure - High Stop: 04/01/23 13:14 Insulin Aspart (Insulin Aspart Per Unit Charge) 0 units SC [facility]; Protocol Stop: 03/31/23 07:29 Last Admin: 03/07/23 08:18 Dose: 5 units Insulin Glargine (Lantus Per Unit Charge) 5 units SQ DAILY [facility] Stop: 04/06/23 08:59 Last Admin: 03/07/23 08:18 Dose: 5 units Lidocaine (Lidocaine 5% 1 Patch) 1 patch TD QAM [facility] Stop: 04/01/23 20:59 Last Admin: 03/07/23 08:10 Dose: 1 patch Menthol (Cough Drop (Sugar Free) Jerson 24 Jerson/1 Box) 1 jerson BUCCAL QID PRN PRN Reason: Sore Throat Stop: 03/30/23 20:14 Last Admin: 03/02/23 16:08 Dose: 24 jerson Methimazole (Methimazole 5 Mg Tablet) 5 mg PO BID [facility] Stop: 04/05/23 20:59 Last Admin: 03/07/23 08:09 Dose: 5 mg Miscellaneous (Carbohydrates For Hypoglycemia ) 15 - 30 gm PO UD PRN PRN Reason: Hypoglycemia Protocol Stop: 03/30/23 20:14 Last Admin: 03/06/23 07:39 Dose: 15 gm Miscellaneous (Remove Lidoderm Patch) 1 each N/A DAILY@2100 [facility] Stop: 04/01/23 20:59 Last Admin: 03/06/23 20:17 Dose: 1 each Miscellaneous Information (Pharmacy Glycemic Mgmt Consult) 1 each N/A UD PRN; Protocol PRN Reason: Consult Stop: 03/30/23 18:37 Oxycodone HCl (Oxycodone Hcl Ir 5 Mg Tab (Immediate Release)) 5 - 10 mg PO QID PRN PRN Reason: Pain Stop: 03/19/23 06:04 Last Admin: 03/05/23 06:15 Dose: 5 mg Polyethylene Glycol (Polyethylene (Miralax) 17 Gm Pack) 17 gm PO DAILY [facility] Stop: 03/31/23 11:29 Last Admin: 03/07/23 08:10 Dose: Not Given Potassium Chloride (Potassium Chloride Crtab 20 Meq Tabcr) 40 meq PO DAILY [facility] Stop: 04/05/23 08:59 Last Admin: 03/07/23 08:09 Dose: 40 meq Urea (Urea (Urea-Na) 15 Gm Pack) 15 gm PO BID [facility] Stop: 04/06/23 08:59 Last Admin: 03/07/23 08:44 Dose: 15 gm Vitamin B Complex (Vitamin B Complex Tab) 1 tab PO DAILY [facility] Stop: 03/31/23 08:59 Last Admin: 03/07/23 08:09 Dose: 1 tab
[2023-03-07] MEDS ORDERED: ALBUTEROL 0.5% NEB SOLN 2.5 MG/0.5 ML VIAL NEB PRN (18:53)
[2023-03-07] MEDS: ENOXAPARIN INJ 40 MG/0.4 ML SYR SQ SCH (20:07)
[2023-03-07] MEDS: guaiFENesin 600 MG TABCR PO SCH (20:29)
[2023-03-08] MEDS: FUROSEMIDE 40 MG/4 ML VIAL IV SCH ×3 (06:04→18:24)
[2023-03-08] MEDS: VITAMIN B COMPLEX TAB PO SCH (07:47)
[2023-03-08] MEDS: ATENOLOL 50 MG TABLET PO SCH (07:47)
[2023-03-08] MEDS: ASPIRIN 81 MG ECTAB PO SCH (07:48)
[2023-03-08] MEDS: ATORVASTATIN 10 MG TAB PO SCH (07:48)
[2023-03-08] MEDS: methIMAzole 5 MG TABLET PO SCH ×2 (07:48→19:59)
[2023-03-08] MEDS: POTASSIUM CHLORIDE CRTAB 20 MEQ TABCR PO SCH (07:48)
[2023-03-08] MEDS: DOXYCYCLINE HYCLATE 100 MG CAP PO SCH ×2 (07:48→20:01)
[2023-03-08] MEDS: GABAPENTIN 100 MG CAP PO SCH ×2 (07:48→20:03)
[2023-03-08] MEDS: LIDOCAINE 5% 1 PATCH TD SCH (07:48)
[2023-03-08] MEDS: UREA (UREA-NA) 15 GM PACK PO SCH ×2 (07:49→20:04)
[2023-03-08] MEDS: POLYETHYLENE (MIRALAX) 17 GM PACK PO SCH (07:49)
[2023-03-08] MEDS: DICLOFENAC SOD 1% GEL 100 GM TUBE EXT SCH ×3 (07:49→20:02)
[2023-03-08] MEDS: LANTUS PER UNIT CHARGE SQ SCH (08:08)
[2023-03-08] MEDS: INSULIN ASPART PER UNIT CHARGE SC SCH ×4 (08:08→22:22)
[2023-03-08 08:14] LABS: Hematocrit (blood only) 32.4 % (37.0-47.0); Hemoglobin 10.9 g/dl (12.0-16.0); Mean Corpuscular Hemoglobin 25.5 pg (25.0-34.0); Mean Corpuscular Hgb Conc 33.6 g/dL (32.0-36.0); Mean Corpuscular Volume 75.9 fL (80.0-100.0); Mean Platelet Volume 9.5 fL (9.4-12.4); Platelet Count 312 K/uL (130-400); RDW Coefficient of Variation 15.6 % (11.5-14.5); RDW Standard Deviation 42.5 fL (36.4-46.3); Red Blood Count 4.27 M/uL (4.20-5.40); White Blood Count 15.98 K/ul (4.8-10.8)
[2023-03-08] MEDS: guaiFENesin 600 MG TABCR PO SCH ×2 (08:28→20:02)
[2023-03-08 08:38] LABS: Calcium 8.6 mg/dl (8.6-10.3); Potassium 4.5 mmol/L (3.5-5.1)
[2023-03-08 08:54] LABS: Creatinine Clr Calc Pharmacy 45.5 ml/min; Est GFR (African American) 63.5 ml/min; Est GFR (Non-African American) 54.8 ml/min
--- NOTE | 2023-03-08 10:17 | Hospitalist Progress Note ---
Date of Service March 08, 2023 Assessment & Plan (1) Hyponatremia: (2) Viral respiratory infection: (3) Hypertension: (4) Hyperlipidemia: (5) History of CVA (cerebrovascular accident): (6) Hyperthyroidism: (7) Abnormal CT scan, chest: Plan This is an 82-year-old female with PMH of history of CVA with some residual left-sided weakness, hyperlipidemia, obesity SOB and cough x 5 days and was found to have severe hyponatremia on admission. Presented with acute confusion and also unstable eating gait which is now resolved. Severe hyponatremia-sodium 108->111->115->118->122->123->125->128 correcting appropriately although slow, nephro managing. 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 Low urine and serum osmolality and high random urine sodium. Cortisol level normal. TSH suppressed,fT4 elevated, fT3 normal Nephrology managing-on IV Lasix, fluid restriction. Now urea added 03/07/23. 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 Does not have overt hypothyroid symptoms. TSH suppressed <0.01, T4 elevated 2.2, free T3 normal, thyroid receptor antibody pending. Discussed with Dr Barker and recommended starting methimazole and outpatient follow up with endo in 3 weeks. Started on methimazole DM-2- newly diagnosed. A1c 8. On insulin per glycemic pharmacist. Carb controlled diet. Will not be aggressive given her age and comorbidities. Diabetic neuropathy- burning sensation in sole and pain other body parts could be from neuropathy, currently resolved after gabapentin and Voltaren gel. US duplex negative for clots Leukocytosis-now trending down, UA unremarkable, continue doxycycline given her recent respiratory symptoms. Procalcitonin negative. Viral respiratory infection/Parainfluenza 3 infection Parainfluenza 3 detected on viral PCR. No indication to continue Augmentin prescribed in outpatient setting (completed 5 days), completed 5 day prednisone taper Supportive care Essential hypertension: BP controlled, continue current meds, goal SBP of <130. Will not be aggressive given her age Hyperlipidemia: Continue statin History of CVA (cerebrovascular accident):Remote history of CVA with mild left sided weakness. Continue aspirin, statin Urinary hesitancy- we will start on Flomax. UA negative for UTI. Denies dysuria. DVT Ppx: SQ lovenox Code status: FULL Dispo- Hyponatremia not yet resolved. PT OT evaluation pending Admission and Anticipated Discharge Date Admission Date: February 28, 2023 Subjective Patient was seen and examined bedside. She complains of being cold. Had itchiness of foot this morning which is improved now. Also had shakiness of hands while eating. She feels better with the warm blankets on. Still concerned about her weakness and ability to move independently. Still has some hesitancy with urination. Has intermittent cough. No fever or chills. No chest pain or shortness of breath nausea or vomiting. tolerating diet well. Regular bowel movements. Having good sleep. Review of Systems Review of Systems: All systems reviewed & are unremarkable except as noted in Subjective Physical Exam Physical Exam: General: Lying comfortably in bed, not in distress, on room air Chest: Diminished breath sounds bilaterally CVS: Regular rate and rhythm, normal heart sounds, no murmur Abdomen: Soft, non tender, not distended, normal bowel sounds Neuro: Awake, alert, oriented, conversing well, non focal Extremities: No cyanosis, clubbing, trace LE edema Results & Data Results & Data Vital Signs (Past 12 Hours) Vital Signs Temp Pulse Resp BP Pulse Ox O2 Del Method 03/08/23 07:12 36.6 C 77 18 146/75 H 94 Room Air 03/08/23 02:33 36.9 C 72 16 106/50 L 94 Room Air 03/07/23 22:38 36.6 C 80 17 112/61 94 Room Air Laboratory Results Short CBC 03/08/23 Range/Units 07:31 WBC 15.98 H (4.8-10.8) K/ul Hgb 10.9 L (12.0-16.0) g/dl Hct 32.4 L (37.0-47.0) % Plt Count 312 (130-400) K/uL BMP 03/08/23 07:31 Sodium 128 L Potassium 4.5 Chloride 87 L Carbon Dioxide 32 BUN 64 H D Creatinine 0.97 Glucose 154 H Calcium 8.6 Medications Administered Current Inpatient Medications Acetaminophen (Acetaminophen 500 Mg Tab) 1,000 mg PO Q8H PRN PRN Reason: Pain Stop: 04/01/23 07:25 Last Admin: 03/05/23 05:16 Dose: 1,000 mg Albuterol (Albuterol 0.5% Neb Soln 2.5 Mg/0.5 Ml Vial) 2.5 mg NEB Q6R PRN; Protocol PRN Reason: wheeze, cough Stop: 03/30/23 20:14 Last Admin: 03/01/23 09:38 Dose: 2.5 mg Albuterol (Albuterol 0.5% Neb Soln 2.5 Mg/0.5 Ml Vial) 2.5 mg NEB Q4 PRN; Protocol PRN Reason: SOB, wheezing Stop: 04/06/23 18:52 Aspirin (Aspirin 81 Mg Ectab) 81 mg PO DAILY [facility] Stop: 03/31/23 08:59 Last Admin: 03/08/23 07:48 Dose: 81 mg Atenolol (Atenolol 50 Mg Tablet) 12.5 mg PO QAM [facility] Stop: 04/07/23 08:59 Last Admin: 03/08/23 07:47 Dose: 12.5 mg Atorvastatin Calcium (Atorvastatin 10 Mg Tab) 10 mg PO DAILY [facility] Stop: 03/31/23 08:59 Last Admin: 03/08/23 07:48 Dose: 10 mg Dextrose (Dextrose 50% 50 Ml Syringe) 25 - 50 ml IV UD PRN; Protocol PRN Reason: Hypoglycemia Protocol Stop: 03/30/23 20:14 Last Admin: 03/05/23 21:27 Dose: 50 ml Diclofenac Sodium (Diclofenac Sod 1% Gel 100 Gm Tube) 2 gm EXT TID [facility]; Protocol Stop: 04/04/23 13:59 Last Admin: 03/08/23 07:49 Dose: 2 gm Doxycycline Hyclate (Doxycycline Hyclate 100 Mg Cap) 100 mg PO BID [facility] Stop: 03/13/23 08:59 Last Admin: 03/08/23 07:48 Dose: 100 mg Enoxaparin Sodium (Enoxaparin Inj 40 Mg/0.4 Ml Syr) 40 mg SQ Q24H [facility] Stop: 03/30/23 20:59 Last Admin: 03/07/23 20:07 Dose: 40 mg Furosemide (Furosemide 40 Mg/4 Ml Vial) 40 mg IV TID@0600,1200,1800 [facility] Stop: 04/06/23 11:59 Last Admin: 03/08/23 06:04 Dose: 40 mg Gabapentin (Gabapentin 100 Mg Cap) 100 mg PO BID [facility] Stop: 04/04/23 10:59 Last Admin: 03/08/23 07:48 Dose: 100 mg Glucagon (Glucagon For Inj 1 Mg Vial) 1 mg SQ UD PRN; Protocol PRN Reason: Hypoglycemia Protocol Stop: 03/30/23 20:14 Glucose (Glucose 10 Tab/Tube) 4 - 8 tab PO UD PRN; Protocol PRN Reason: Hypoglycemia Treatment Stop: 03/30/23 20:14 Last Admin: 03/05/23 20:36 Dose: 8 tab Glucose (Glucose 40% Gel 15 Gm Tube) 15 - 30 gm PO UD PRN; Protocol PRN Reason: Hypoglycemia Protocol Stop: 03/30/23 20:14 Guaifenesin (Guaifenesin Sugar Free 200 Mg/10 Ml Udc) 200 mg PO Q6H PRN PRN Reason: Cough Stop: 04/05/23 21:16 Last Admin: 03/06/23 21:33 Dose: 200 mg Guaifenesin (Guaifenesin 600 Mg Tabcr) 600 mg PO Q12 [facility] Stop: 04/06/23 20:59 Last Admin: 03/08/23 08:28 Dose: 600 mg Hydralazine HCl (Hydralazine Hcl 20 Mg/Ml Vial) 10 mg IV Q6H PRN PRN Reason: Blood Pressure - High Stop: 04/01/23 13:14 Insulin Aspart (Insulin Aspart Per Unit Charge) 0 units SC [facility]; Protocol Stop: 03/31/23 07:29 Last Admin: 03/08/23 08:08 Dose: 7 units Insulin Glargine (Lantus Per Unit Charge) 5 units SQ DAILY [facility] Stop: 04/06/23 08:59 Last Admin: 03/08/23 08:08 Dose: 5 units Lidocaine (Lidocaine 5% 1 Patch) 1 patch TD QAM [facility] Stop: 04/01/23 20:59 Last Admin: 03/08/23 07:48 Dose: 1 patch Menthol (Cough Drop (Sugar Free) Jerson 24 Jerson/1 Box) 1 jerson BUCCAL QID PRN PRN Reason: Sore Throat Stop: 03/30/23 20:14 Last Admin: 03/02/23 16:08 Dose: 24 jerson Methimazole (Methimazole 5 Mg Tablet) 10 mg PO BID [facility] Stop: 04/06/23 20:59 Last Admin: 03/08/23 07:48 Dose: 10 mg Miscellaneous (Carbohydrates For Hypoglycemia ) 15 - 30 gm PO UD PRN PRN Reason: Hypoglycemia Protocol Stop: 03/30/23 20:14 Last Admin: 03/06/23 07:39 Dose: 15 gm Miscellaneous (Remove Lidoderm Patch) 1 each N/A DAILY@2100 [facility] Stop: 04/01/23 20:59 Last Admin: 03/07/23 20:11 Dose: 1 each Miscellaneous Information (Pharmacy Glycemic Mgmt Consult) 1 each N/A UD PRN; Protocol PRN Reason: Consult Stop: 03/30/23 18:37 Oxycodone HCl (Oxycodone Hcl Ir 5 Mg Tab (Immediate Release)) 5 - 10 mg PO QID PRN PRN Reason: Pain Stop: 03/19/23 06:04 Last Admin: 03/05/23 06:15 Dose: 5 mg Polyethylene Glycol (Polyethylene (Miralax) 17 Gm Pack) 17 gm PO DAILY [facility] Stop: 03/31/23 11:29 Last Admin: 03/08/23 07:49 Dose: Not Given Potassium Chloride (Potassium Chloride Crtab 20 Meq Tabcr) 40 meq PO DAILY [facility] Stop: 04/05/23 08:59 Last Admin: 03/08/23 07:48 Dose: 40 meq Urea (Urea (Urea-Na) 15 Gm Pack) 15 gm PO BID [facility] Stop: 04/06/23 08:59 Last Admin: 03/08/23 07:49 Dose: 15 gm Vitamin B Complex (Vitamin B Complex Tab) 1 tab PO DAILY [facility] Stop: 03/31/23 08:59 Last Admin: 03/08/23 07:47 Dose: 1 tab
[2023-03-08] MEDS ORDERED: UREA (UREA-NA) 15 GM PACK PO ONE (10:21)
--- NOTE | 2023-03-08 10:24 | Nephrology Progress Note ---
Date of Service March 08, 2023 Assessment & Plan (1) Hyponatremia: Plan: -improving and chlorthalidone induced on the background on poor solute intake and respiratory virus/bronchiolitis on CT. 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 past 24 hrs responding to lasix - Target Sodium max 134 for AM tomorrow - Rate of correction has been on target, even slow > protein shakes do not count toward fluid limit and should be encouraged >>daily standing weight, I/O ordered >>order in to record po intake >> trying to gauge how well /poorly she's eating > encourage higher protein intake - Replace K to keep levels > 4 and Magnesium > 2.0 ->>> avoid nsaids >continue lasix 40 IV at 0600, noon, 1800 -cont K 40 mEq daily for now >continue liberalized FR to 1.5L Has been on urea 15 g twice daily which I increased today to 30 g twice daily first dose this morning >weight was 87.9 on 03/04 at 1300 and 83.7 on 03/04 2358 and 84.7 on March 06 at 6:30 AM > 83.7 03/07 at 630 -Daily BMP for now (2) Poorly-controlled hypertension: Plan: improved control past 24 hr even a few low readings> goal is sbp 110-140s -lasix as above w/ hold parameters -lowered atenolol dose to 12.5 mg bid from 50 bid on March 07; stopped amlodipine 03/06 TTE >> mild plm HTN; normal EF; mild MRgg increase; mild CLVH (3) Viral respiratory infection: Plan: -- as per primary. Admission and Anticipated Discharge Date Admission Date: February 28, 2023 Subjective no interval events clinically. Struggles to eat well today she is telling me. Still feels cold. No musculoskeletal pain Review of Systems Review of Systems: All systems reviewed & are unremarkable except as noted in Subjective Physical Exam Constitutional: well developed and well nourished; no acute distress Eyes: EOM intact bilaterally ENMT: Ears: no external ear abnormality Nose: no external nose abnormality Mouth: + dry oral mucous membranes Neck: no nuchal rigidity Respiratory: normal respiratory effort Auscultation: + diminished lung sounds and + rhonchi Cardiovascular: RRR, no murmur, no edema Gastrointestinal (Abdomen): Inspection/Auscultation: normal bowel sounds Percussion/Palpation: abdomen soft; abdomen nontender Musculoskeletal: Extremities: strength 5/5 throughout Skin: no rashes, warm and dry Results & Data Vital Signs (Past 12 Hours) Vital Signs Temp Pulse Resp BP Pulse Ox O2 Del Method 03/08/23 07:12 36.6 C 77 18 146/75 H 94 Room Air 03/08/23 02:33 36.9 C 72 16 106/50 L 94 Room Air 03/07/23 22:38 36.6 C 80 17 112/61 94 Room Air Laboratory Results 03/08/23 07:31 03/08/23 07:31
[2023-03-08] MEDS: TAMSULOSIN HCL 0.4 MG CAP PO SCH (12:40)
[2023-03-08] MEDS: ENOXAPARIN INJ 40 MG/0.4 ML SYR SQ SCH (20:01)
[2023-03-09] MEDS: INSULIN ASPART PER UNIT CHARGE SC SCH ×3 (01:02→11:57)
[2023-03-09] MEDS: FUROSEMIDE 40 MG/4 ML VIAL IV SCH ×2 (06:34→17:30)
[2023-03-09] MEDS: ASPIRIN 81 MG ECTAB PO SCH (09:14)
[2023-03-09] MEDS: POTASSIUM CHLORIDE CRTAB 20 MEQ TABCR PO SCH (09:14)
[2023-03-09] MEDS: ATENOLOL 50 MG TABLET PO SCH (09:14)
[2023-03-09] MEDS: VITAMIN B COMPLEX TAB PO SCH (09:15)
[2023-03-09] MEDS: methIMAzole 5 MG TABLET PO SCH ×2 (09:15→20:04)
[2023-03-09] MEDS: TAMSULOSIN HCL 0.4 MG CAP PO SCH (09:15)
[2023-03-09] MEDS: DOXYCYCLINE HYCLATE 100 MG CAP PO SCH ×2 (09:15→20:02)
[2023-03-09] MEDS: GABAPENTIN 100 MG CAP PO SCH ×2 (09:15→20:03)
[2023-03-09] MEDS: ATORVASTATIN 10 MG TAB PO SCH (09:15)
[2023-03-09] MEDS: guaiFENesin SUGAR FREE 200 MG/10 ML UDC PO PRN (09:33)
[2023-03-09] MEDS: guaiFENesin 600 MG TABCR PO SCH ×2 (09:34→20:03)
[2023-03-09] MEDS: UREA (UREA-NA) 15 GM PACK PO SCH (09:35)
[2023-03-09] MEDS: DICLOFENAC SOD 1% GEL 100 GM TUBE EXT SCH ×3 (09:39→20:03)
[2023-03-09] MEDS: LIDOCAINE 5% 1 PATCH TD SCH (09:42)
[2023-03-09 09:59] LABS: Hematocrit (blood only) 33.3 % (37.0-47.0); Hemoglobin 11.2 g/dl (12.0-16.0); Mean Corpuscular Hemoglobin 25.6 pg (25.0-34.0); Mean Corpuscular Hgb Conc 33.6 g/dL (32.0-36.0); Mean Corpuscular Volume 76.2 fL (80.0-100.0); Mean Platelet Volume 9.6 fL (9.4-12.4); Platelet Count 320 K/uL (130-400); RDW Coefficient of Variation 15.6 % (11.5-14.5); RDW Standard Deviation 43.1 fL (36.4-46.3); Red Blood Count 4.37 M/uL (4.20-5.40); White Blood Count 13.27 K/ul (4.8-10.8)
[2023-03-09 10:17] LABS: BUN Creatinine Ratio 104.2 (10-20); Calcium 9.8 mg/dl (8.6-10.3); Creatinine Clr Calc Pharmacy 37.1 ml/min; Est GFR (African American) 49.6 ml/min; Est GFR (Non-African American) 42.8 ml/min; Potassium 4.5 mmol/L (3.5-5.1)
--- NOTE | 2023-03-09 11:06 | Nephrology Progress Note ---
Date of Service March 09, 2023 Assessment & Plan Admission and Anticipated Discharge Date Admission Date: February 28, 2023 Subjective Assessment & Plan (1) Hyponatremia: Plan: -improving and chlorthalidone induced on the background on poor solute intake and respiratory virus/bronchiolitis on CT. 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 past 48 hrs responding to lasix Rate of correction has been on target, even slow protein shakes do not count toward fluid limit and should be encouraged Daily standing weight, I/O ordered Replace K to keep levels > 4 and Magnesium > 2.0 Lower lasix to 40 bid. BUN is now >120 so will also stop Urea. cont K 40 mEq daily for now Daily BMP for now Raise FFR to 1800 ml--she is not happy with FFR. Can also use some ice chips. Subjective no interval events clinically. Struggles to eat well today she is telling me. Still feels cold. c/o FFR. No musculoskeletal pain Review of Systems Review of Systems: All systems reviewed & are unremarkable except as noted in Subjective Physical Exam Constitutional: well developed and well nourished; no acute distress Eyes: EOM intact bilaterally ENMT: Ears: no external ear abnormality Nose: no external nose abnormality Mouth: + dry oral mucous membranes Neck: no nuchal rigidity Respiratory: normal respiratory effort Auscultation: + diminished lung sounds and + rhonchi Cardiovascular: RRR, no murmur, no edema Gastrointestinal (Abdomen): Inspection/Auscultation: normal bowel sounds Percussion/Palpation: abdomen soft; abdomen nontender Musculoskeletal: Extremities: strength 5/5 throughout Skin: no rashes, warm and dry
[2023-03-09] MEDS: LANTUS PER UNIT CHARGE SQ SCH (11:58)
[2023-03-09] MEDS: POLYETHYLENE (MIRALAX) 17 GM PACK PO SCH (11:58)
--- NOTE | 2023-03-09 12:05 | Hospitalist Progress Note ---
Date of Service March 09, 2023 Assessment & Plan (1) Hyponatremia: (2) Viral respiratory infection: (3) Hypertension: (4) Hyperlipidemia: (5) History of CVA (cerebrovascular accident): (6) Hyperthyroidism: (7) Abnormal CT scan, chest: Plan This is an 82-year-old female with PMH of history of CVA with some residual left-sided weakness, hyperlipidemia, obesity SOB and cough x 5 days and was found to have severe hyponatremia on admission. Presented with acute confusion and also unstable eating gait which is now resolved. Severe hyponatremia-sodium 108->111->115->118->122->123->125->128-->130 correcting appropriately although slow, nephro managing. 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 Low urine and serum osmolality and high random urine sodium. Cortisol level normal. TSH suppressed,fT4 elevated, fT3 normal Nephrology managing-on IV Lasix, fluid restriction. Urea added 03/07/23 but discontinued today 03/09 due to elevated BUN. 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 Does not have overt hypothyroid symptoms. TSH suppressed <0.01, T4 elevated 2.2, free T3 normal, thyroid receptor antibody pending. Discussed with Dr Barker and recommended starting methimazole and outpatient follow up with endo in 3 weeks. Started on methimazole DM-2- newly diagnosed. A1c 8. Multiple hypoglycemic episodes due to mismatch between insulin and oral intake. Family very concerned about hypoglycemic episodes. Will discontinue insulin and monitor her off of it. Will start on metformin given her stability. Carb controlled diet. Will not be aggressive given her age and comorbidities. Diabetic neuropathy- burning sensation in sole and pain other body parts could be from neuropathy, currently resolved after gabapentin and Voltaren gel. US duplex negative for clots Leukocytosis-now trending down, UA unremarkable, continue doxycycline given her recent respiratory symptoms. Procalcitonin negative. Viral respiratory infection/Parainfluenza 3 infection Parainfluenza 3 detected on viral PCR. No indication to continue Augmentin prescribed in outpatient setting (completed 5 days), completed 5 day prednisone taper Supportive care Essential hypertension: BP controlled, continue current meds, goal SBP of <130. Will not be aggressive given her age Hyperlipidemia: Continue statin History of CVA (cerebrovascular accident):Remote history of CVA with mild left sided weakness. Continue aspirin, statin Urinary hesitancy- started on Flomax. UA negative for UTI. Denies dysuria. DVT Ppx: SQ lovenox Code status: FULL Dispo- PT/OT eval. Anticipate discharge in 1-2 days. Admission and Anticipated Discharge Date Admission Date: February 28, 2023 Subjective Patient was seen and examined at bedside. States she is shaky while eating and drinking, better when warm and covered with blankets. Still has hesitancy with urination. She had hypoglycemia episode last night requiring harjinder crackers/juices. Her son was at bedside and very concerned about insulin and hypoglycemia. Her oral intake has been erratic causing mismatch of insulin administration. Her son would like to observe her off of insulin and see the blood glucose trend prior to deciding and I think it would be reasonable given her age, comorbidities and hypoglycemic episodes. Review of Systems Review of Systems: All systems reviewed & are unremarkable except as noted in Subjective Physical Exam Physical Exam: General: Lying comfortably in bed, not in distress, on room air Chest: Fair breath sounds bilaterally with some rhonchi CVS: Regular rate and rhythm, normal heart sounds, no murmur Abdomen: Soft, non tender, not distended, normal bowel sounds Neuro: Awake, alert, oriented, conversing well, non focal Extremities: No cyanosis, clubbing, trace LE edema Results & Data Results & Data Vital Signs (Past 12 Hours) Vital Signs O2 Del Method 03/09/23 11:45 Room Air
[2023-03-09] MEDS: DOCUSATE SODIUM 100 MG CAP PO SCH ×2 (12:41→20:04)
[2023-03-09] MEDS: metFORMIN HCL 850 MG TAB PO SCH ×2 (12:41→17:30)
[2023-03-09 14:52] LABS: Microsomal Ab <1 IU/mL (<9); Thyroglobulin Antibodies <1 IU/mL (< or = 1)
[2023-03-09] MEDS: ENOXAPARIN INJ 40 MG/0.4 ML SYR SQ SCH (20:02)
[2023-03-10] MEDS: ACETAMINOPHEN 500 MG TAB PO PRN (06:04)
[2023-03-10 07:53] LABS: Hematocrit (blood only) 27.6 % (37.0-47.0); Hemoglobin 9.4 g/dl (12.0-16.0); Mean Corpuscular Hemoglobin 25.8 pg (25.0-34.0); Mean Corpuscular Hgb Conc 34.1 g/dL (32.0-36.0); Mean Corpuscular Volume 75.6 fL (80.0-100.0); Mean Platelet Volume 9.5 fL (9.4-12.4); Platelet Count 260 K/uL (130-400); RDW Coefficient of Variation 15.7 % (11.5-14.5); RDW Standard Deviation 43.4 fL (36.4-46.3); Red Blood Count 3.65 M/uL (4.20-5.40); White Blood Count 10.58 K/ul (4.8-10.8)
[2023-03-10] MEDS: VITAMIN B COMPLEX TAB PO SCH (08:05)
[2023-03-10] MEDS: GABAPENTIN 100 MG CAP PO SCH ×2 (08:05→20:29)
[2023-03-10] MEDS: ASPIRIN 81 MG ECTAB PO SCH (08:05)
[2023-03-10] MEDS: metFORMIN HCL 850 MG TAB PO SCH ×2 (08:05→17:38)
[2023-03-10] MEDS: ATORVASTATIN 10 MG TAB PO SCH (08:05)
[2023-03-10] MEDS: DOXYCYCLINE HYCLATE 100 MG CAP PO SCH ×2 (08:05→20:29)
[2023-03-10] MEDS: DICLOFENAC SOD 1% GEL 100 GM TUBE EXT SCH ×3 (08:06→20:29)
[2023-03-10] MEDS: ATENOLOL 50 MG TABLET PO SCH (08:06)
[2023-03-10] MEDS: methIMAzole 5 MG TABLET PO SCH ×2 (08:07→20:29)
[2023-03-10] MEDS: DOCUSATE SODIUM 100 MG CAP PO SCH ×2 (08:07→20:30)
[2023-03-10] MEDS: TAMSULOSIN HCL 0.4 MG CAP PO SCH (08:07)
[2023-03-10] MEDS: FUROSEMIDE 40 MG/4 ML VIAL IV SCH (08:07)
[2023-03-10] MEDS: LIDOCAINE 5% 1 PATCH TD SCH (08:07)
[2023-03-10 08:14] LABS: BUN Creatinine Ratio 97.7 (10-20); Creatinine Clr Calc Pharmacy 34.5 ml/min; Est GFR (African American) 45.4 ml/min; Est GFR (Non-African American) 39.2 ml/min
[2023-03-10] MEDS: guaiFENesin 600 MG TABCR PO SCH ×2 (08:48→20:29)
[2023-03-10] MEDS ORDERED: POTASSIUM CHLORIDE CRTAB 20 MEQ TABCR PO SCH (09:00)
--- NOTE | 2023-03-10 09:11 | Nephrology Progress Note ---
Date of Service March 10, 2023 Assessment & Plan Admission and Anticipated Discharge Date Admission Date: February 28, 2023 Subjective Assessment & Plan (1) Hyponatremia: Plan: -improving and chlorthalidone induced on the background on poor solute intake and respiratory virus/bronchiolitis on CT. 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 past 48 hrs responding to lasix Rate of correction has been on target, even slow protein shakes do not count toward fluid limit and should be encouraged Daily standing weight, I/O ordered Replace K to keep levels > 4 and Magnesium > 2.0 na is now 133 with BUN of 125. Stop lasix and Stop Urea. will follow BMP for now. Daily BMP for now FFR to 1800 ml--she is not happy with FFR. Can also use some ice chips. Subjective no interval events clinically. Struggles to eat well today she is telling me. Still feels cold. c/o FFR. No musculoskeletal pain Review of Systems Review of Systems: All systems reviewed & are unremarkable except as noted in Subjective Physical Exam Constitutional: well developed and well nourished; no acute distress Eyes: EOM intact bilaterally ENMT: Ears: no external ear abnormality Nose: no external nose abnormality Mouth: + dry oral mucous membranes Neck: no nuchal rigidity Respiratory: normal respiratory effort Auscultation: + diminished lung sounds and + rhonchi Cardiovascular: RRR, no murmur, no edema Gastrointestinal (Abdomen): Inspection/Auscultation: normal bowel sounds Percussion/Palpation: abdomen soft; abdomen nontender Musculoskeletal: Extremities: strength 5/5 throughout Skin: no rashes, warm and dry Results & Data Vital Signs (Past 12 Hours) Vital Signs Temp Pulse Resp BP BP Pulse Ox O2 Del Method 03/10/23 07:38 36.7 C 96 H 16 123/68 94 Room Air 03/10/23 06:18 36.6 C 99 H 16 144/72 H 94 Room Air
[2023-03-10] MEDS: CETIRIZINE HCL 10 MG TABLET PO SCH (09:57)
--- NOTE | 2023-03-10 15:50 | Hospitalist Progress Note ---
Date of Service March 10, 2023 Assessment & Plan (1) Hyponatremia: (2) Viral respiratory infection: (3) Hypertension: (4) Hyperlipidemia: (5) History of CVA (cerebrovascular accident): (6) Hyperthyroidism: (7) Abnormal CT scan, chest: Plan This is an 82-year-old female with PMH of history of CVA with some residual left-sided weakness, hyperlipidemia, obesity SOB and cough x 5 days and was found to have severe hyponatremia on admission. Presented with acute confusion and also unstable eating gait which is now resolved. Severe hyponatremia-sodium 108->111->115->118->122->123->125->128-->130->133 correcting appropriately although slow, nephro managing. 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 Low urine and serum osmolality and high random urine sodium. Cortisol level normal. TSH suppressed,fT4 elevated, fT3 normal Nephrology managing-status post IV Lasix, fluid restriction, urea. Urea added 03/07/23 but discontinued today 03/09 due to elevated BUN. Lasix discontinued today 03/10. Clinically doing better and stable Echo with mild increase in MR and mild PH but otherwise no significant change from 07/2021 Multinodular goiter with hyperthyroidism: Multinodular goiter with retrost ernal/mediastinal extension, similar in appearance to CT as of August 02, 2021. Does not have overt hypothyroid symptoms. TSH suppressed <0.01, T4 elevated 2.2, free T3 normal, thyroid receptor antibody pending. Discussed with Dr Barker and recommended starting methimazole 15 mg bd and outpatient follow up with endo in 3 weeks. Started on methimazole. DM-2- newly diagnosed. A1c 8. Multiple hypoglycemic episodes due to mismatch between insulin and oral intake. Discontinued insulin yesterday due to family concerns about hypoglycemia and metformin added. Monitor. Carb controlled diet. Will not be aggressive given her age and comorbidities. Diabetic neuropathy- burning sensation in sole and pain other body parts could be from neuropathy, currently resolved after gabapentin and Voltaren gel. US duplex negative for clots Leukocytosis- resolved. UA unremarkable. Completing 5 days of doxy today given her recent respiratory symptoms. Procalcitonin negative. Viral respiratory infection/Parainfluenza 3 infection Parainfluenza 3 detected on viral PCR. No indication to continue Augmentin prescribed in outpatient setting (completed 5 days), completed 5 day prednisone taper Supportive care Essential hypertension: BP controlled, continue current meds, goal SBP of <130. Will not be aggressive given her age Hyperlipidemia: Continue statin History of CVA (cerebrovascular accident):Remote history of CVA with mild left sided weakness. Continue aspirin, statin Urinary hesitancy- started on Flomax. UA negative for UTI. Denies dysuria. DVT Ppx: SQ lovenox Code status: FULL Dispo- Anticipate discharge in 1-2 days Admission and Anticipated Discharge Date Admission Date: February 28, 2023 Subjective Patient was seen and examined at bedside in presence of son. She is not feeling good today. States she could not sleep last night because of congested nose and she felt like she cannot breathe. Still with some urinary hesitancy. Her tremors have improved. No fever, chills, nausea or vomiting. She did well with physical therapy yesterday Review of Systems Review of Systems: All systems reviewed & are unremarkable except as noted in Subjective Physical Exam Physical Exam: General: Sitting comfortably in a chair, not in distress, on room air Chest: Fair breath sounds bilaterally with some rhonchi CVS: Regular rate and rhythm, normal heart sounds, no murmur Abdomen: Soft, non tender, not distended, normal bowel sounds Neuro: Awake, alert, oriented, conversing well, non focal Extremities: No cyanosis, clubbing, trace LE edema Observed ambulating with walker to the bathroom Results & Data Results & Data Vital Signs (Past 12 Hours) Vital Signs Temp Pulse Resp BP BP Pulse Ox O2 Del Method 03/10/23 15:13 36.6 C 66 16 137/71 97 Room Air 03/10/23 07:38 36.7 C 96 H 16 123/68 94 Room Air 03/10/23 06:18 36.6 C 99 H 16 144/72 H 94 Room Air Laboratory Results Short CBC 03/10/23 Range/Units 07:22 WBC 10.58 (4.8-10.8) K/ul Hgb 9.4 L (12.0-16.0) g/dl Hct 27.6 L (37.0-47.0) % Plt Count 260 (130-400) K/uL BMP 03/10/23 07:22 Sodium 133 L Potassium 5.0 Chloride 91 L Carbon Dioxide 34 H BUN 125 H Creatinine 1.28 H Glucose 169 H Calcium 9.0 Medications Administered Current Inpatient Medications Acetaminophen (Acetaminophen 500 Mg Tab) 1,000 mg PO Q8H PRN PRN Reason: Pain Stop: 04/01/23 07:25 Last Admin: 03/10/23 06:04 Dose: 1,000 mg Albuterol (Albuterol 0.5% Neb Soln 2.5 Mg/0.5 Ml Vial) 2.5 mg NEB Q6R PRN; Protocol PRN Reason: wheeze, cough Stop: 03/30/23 20:14 Last Admin: 03/01/23 09:38 Dose: 2.5 mg Albuterol (Albuterol 0.5% Neb Soln 2.5 Mg/0.5 Ml Vial) 2.5 mg NEB Q4 PRN; Protocol PRN Reason: SOB, wheezing Stop: 04/06/23 18:52 Aspirin (Aspirin 81 Mg Ectab) 81 mg PO DAILY [facility] Stop: 03/31/23 08:59 Last Admin: 03/10/23 08:05 Dose: 81 mg Atenolol (Atenolol 50 Mg Tablet) 12.5 mg PO QAM [facility] Stop: 04/07/23 08:59 Last Admin: 03/10/23 08:06 Dose: 12.5 mg Atorvastatin Calcium (Atorvastatin 10 Mg Tab) 10 mg PO DAILY [facility] Stop: 03/31/23 08:59 Last Admin: 03/10/23 08:05 Dose: 10 mg Cetirizine HCl (Cetirizine Hcl 10 Mg Tablet) 10 mg PO QAM [facility] Stop: 04/09/23 08:59 Last Admin: 03/10/23 09:57 Dose: 10 mg Dextrose (Dextrose 50% 50 Ml Syringe) 25 - 50 ml IV UD PRN; Protocol PRN Reason: Hypoglycemia Protocol Stop: 03/30/23 20:14 Last Admin: 03/05/23 21:27 Dose: 50 ml Diclofenac Sodium (Diclofenac Sod 1% Gel 100 Gm Tube) 2 gm EXT TID BERNA; Protocol Stop: 04/04/23 13:59 Last Admin: 03/10/23 12:21 Dose: 2 gm Docusate Sodium (Docusate Sodium 100 Mg Cap) 100 mg PO BID [facility] Stop: 04/08/23 10:14 Last Admin: 03/10/23 08:07 Dose: 100 mg Doxycycline Hyclate (Doxycycline Hyclate 100 Mg Cap) 100 mg PO BID [facility] Stop: 03/13/23 08:59 Last Admin: 03/10/23 08:05 Dose: 100 mg Enoxaparin Sodium (Enoxaparin Inj 40 Mg/0.4 Ml Syr) 40 mg SQ Q24H [facility] Stop: 03/30/23 20:59 Last Admin: 03/09/23 20:02 Dose: 40 mg Gabapentin (Gabapentin 100 Mg Cap) 100 mg PO BID BERNA Stop: 04/04/23 10:59 Last Admin: 03/10/23 08:05 Dose: 100 mg Glucagon (Glucagon For Inj 1 Mg Vial) 1 mg SQ UD PRN; Protocol PRN Reason: Hypoglycemia Protocol Stop: 03/30/23 20:14 Glucose (Glucose 10 Tab/Tube) 4 - 8 tab PO UD PRN; Protocol PRN Reason: Hypoglycemia Treatment Stop: 03/30/23 20:14 Last Admin: 03/05/23 20:36 Dose: 8 tab Glucose (Glucose 40% Gel 15 Gm Tube) 15 - 30 gm PO UD PRN; Protocol PRN Reason: Hypoglycemia Protocol Stop: 03/30/23 20:14 Guaifenesin (Guaifenesin Sugar Free 200 Mg/10 Ml Udc) 200 mg PO Q6H PRN PRN Reason: Cough Stop: 04/05/23 21:16 Last Admin: 03/09/23 09:33 Dose: 200 mg Guaifenesin (Guaifenesin 600 Mg Tabcr) 600 mg PO Q12 [facility] Stop: 04/06/23 20:59 Last Admin: 03/10/23 08:48 Dose: 600 mg Hydralazine HCl (Hydralazine Hcl 20 Mg/Ml Vial) 10 mg IV Q6H PRN PRN Reason: Blood Pressure - High Stop: 04/01/23 13:14 Lidocaine (Lidocaine 5% 1 Patch) 1 patch TD QAM [facility] Stop: 04/01/23 20:59 Last Admin: 03/10/23 08:07 Dose: Not Given Menthol (Cough Drop (Sugar Free) Jerson 24 Jerson/1 Box) 1 jerson BUCCAL QID PRN PRN Reason: Sore Throat Stop: 03/30/23 20:14 Last Admin: 03/02/23 16:08 Dose: 24 jerson Metformin HCl (Metformin Hcl 850 Mg Tab) 850 mg PO BIDM BERNA Stop: 04/08/23 11:34 Last Admin: 03/10/23 08:05 Dose: 850 mg Methimazole (Methimazole 5 Mg Tablet) 10 mg PO BID BERNA Stop: 04/06/23 20:59 Last Admin: 03/10/23 08:07 Dose: 10 mg Miscellaneous (Carbohydrates For Hypoglycemia ) 15 - 30 gm PO UD PRN PRN Reason: Hypoglycemia Protocol Stop: 03/30/23 20:14 Last Admin: 03/06/23 07:39 Dose: 15 gm Miscellaneous (Remove Lidoderm Patch) 1 each N/A DAILY@2100 BERNA Stop: 04/01/23 20:59 Last Admin: 03/09/23 20:05 Dose: 1 each Oxycodone HCl (Oxycodone Hcl Ir 5 Mg Tab (Immediate Release)) 5 - 10 mg PO QID PRN PRN Reason: Pain Stop: 03/19/23 06:04 Last Admin: 03/05/23 06:15 Dose: 5 mg Tamsulosin HCl (Tamsulosin Hcl 0.4 Mg Cap) 0.4 mg PO DAILY BERNA Stop: 04/07/23 10:29 Last Admin: 03/10/23 08:07 Dose: 0.4 mg Vitamin B Complex (Vitamin B Complex Tab) 1 tab PO DAILY BERNA Stop: 03/31/23 08:59 Last Admin: 03/10/23 08:05 Dose: 1 tab
[2023-03-10] MEDS: ENOXAPARIN INJ 40 MG/0.4 ML SYR SQ SCH (20:30)
[2023-03-11] MEDS: LIDOCAINE 5% 1 PATCH TD SCH (08:45)
[2023-03-11] MEDS: DICLOFENAC SOD 1% GEL 100 GM TUBE EXT SCH ×3 (08:46→20:27)
[2023-03-11] MEDS: TAMSULOSIN HCL 0.4 MG CAP PO SCH (08:47)
[2023-03-11] MEDS: methIMAzole 5 MG TABLET PO SCH ×2 (08:47→20:26)
[2023-03-11] MEDS: VITAMIN B COMPLEX TAB PO SCH (08:47)
[2023-03-11] MEDS: guaiFENesin 600 MG TABCR PO SCH ×2 (08:48→20:26)
[2023-03-11] MEDS: metFORMIN HCL 850 MG TAB PO SCH ×2 (08:48→17:38)
[2023-03-11] MEDS: GABAPENTIN 100 MG CAP PO SCH ×2 (08:49→20:25)
[2023-03-11] MEDS: DOCUSATE SODIUM 100 MG CAP PO SCH ×2 (08:49→20:25)
[2023-03-11 08:50] LABS: Hematocrit (blood only) 30.1 % (37.0-47.0); Mean Corpuscular Hemoglobin 25.8 pg (25.0-34.0); Mean Corpuscular Hgb Conc 33.2 g/dL (32.0-36.0); Mean Corpuscular Volume 77.6 fL (80.0-100.0); Mean Platelet Volume 9.2 fL (9.4-12.4); Platelet Count 248 K/uL (130-400); RDW Coefficient of Variation 15.9 % (11.5-14.5); RDW Standard Deviation 44.1 fL (36.4-46.3); Red Blood Count 3.88 M/uL (4.20-5.40); White Blood Count 8.51 K/ul (4.8-10.8)
[2023-03-11] MEDS: CETIRIZINE HCL 10 MG TABLET PO SCH (08:50)
[2023-03-11] MEDS: ATENOLOL 50 MG TABLET PO SCH (08:50)
[2023-03-11] MEDS: ATORVASTATIN 10 MG TAB PO SCH (08:50)
[2023-03-11] MEDS: ASPIRIN 81 MG ECTAB PO SCH (08:51)
[2023-03-11 09:15] LABS: BUN Creatinine Ratio 97.9 (10-20); Calcium 9.3 mg/dl (8.6-10.3); Creatinine Clr Calc Pharmacy 46.9 ml/min; Est GFR (African American) 65.9 ml/min; Est GFR (Non-African American) 56.9 ml/min; Magnesium 1.8 mg/dl (1.7-2.4); Potassium 4.4 mmol/L (3.5-5.1)
--- NOTE | 2023-03-11 09:26 | Nephrology Progress Note ---
Date of Service March 11, 2023 Assessment & Plan Admission and Anticipated Discharge Date Admission Date: February 28, 2023 Subjective Subjective Assessment & Plan (1) Hyponatremia: was 108 on admission -improving and chlorthalidone induced on the background on poor solute intake and respiratory virus/bronchiolitis on CT. 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 past 48 hrs responding to lasix Rate of correction has been on target, even slow protein shakes do not count toward fluid limit and should be encouraged Daily standing weight, I/O ordered na is now 141 with BUN trending down. BUn should come down gradually now that we have stopped both urea and lasix No need of lasix and Urea. will follow BMP for now. Daily BMP for now raise FFR to 2000 ml--she is not happy with FFR. Can also use some ice chips. Subjective no interval events clinically. c/o FFR. No musculoskeletal pain Review of Systems Review of Systems: All systems reviewed & are unremarkable except as noted in Subjective Physical Exam Constitutional: well developed and well nourished; no acute distress Eyes: EOM intact bilaterally ENMT: Ears: no external ear abnormality Nose: no external nose abnormality Mouth: + dry oral mucous membranes Neck:K no nuchal rigidity Respiratory: normal respiratory effort Auscultation: + diminished lung sounds and + rhonchi Cardiovascular: RRR, no murmur, no edema Gastrointestinal (Abdomen): Inspection/Auscultation: normal bowel sounds Percussion/Palpation: abdomen soft; abdomen nontender Musculoskeletal: Extremities: strength 5/5 throughout Skin: no rashes, warm and dry Results & Data Vital Signs (Past 12 Hours) Vital Signs Temp Pulse Resp BP Pulse Ox O2 Del Method 03/11/23 07:41 36.6 C 108 H 16 119/70 94 Room Air 03/10/23 21:26 36.6 C 96 H 18 150/85 H 91 Room Air
--- NOTE | 2023-03-11 12:03 | Hospitalist Progress Note ---
Date of Service March 11, 2023 Assessment & Plan (1) Hyponatremia: (2) Viral respiratory infection: (3) Hypertension: (4) Hyperlipidemia: (5) History of CVA (cerebrovascular accident): (6) Hyperthyroidism: (7) Abnormal CT scan, chest: Plan 82 yo F with history of CVA with some residual left-sided weakness, hyperlipidemia, obesity SOB and cough x 5 days and was found to have severe hyponatremia on admission. Presented with acute confusion and also unstable eating gait which is now resolved. Severe hyponatremia-sodium 108->111->115->118->122->123->125->128-->130->133 -> 141 correcting appropriately although slow, nephro managing. 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 Low urine and serum osmolality and high random urine sodium. Cortisol level normal. TSH suppressed,fT4 elevated, fT3 normal Nephrology managing-status post IV Lasix, fluid restriction, urea. Urea added 03/07/23 but discontinued today 03/09 due to elevated BUN. Lasix discontinued 03/10. 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 Does not have overt hypothyroid symptoms. TSH suppressed <0.01, T4 elevated 2.2, free T3 normal, thyroid receptor antibody pending. Discussed with Dr Barker and recommended starting methimazole 15 mg bd and outpatient follow up with endo in 3 weeks. Started on methimazole. DM-2- newly diagnosed. A1c 8. Multiple hypoglycemic episodes due to mismatch between insulin and oral intake. Discontinued insulin due to family concerns about hypoglycemia and metformin added. Monitor. Carb controlled diet. Will not be aggressive given her age and comorbidities. Diabetic neuropathy- burning sensation in sole and pain other body parts could be from neuropathy, started gabapentin and Voltaren gel. US duplex negative for clots Leukocytosis- resolved. UA unremarkable. Completed 5 days of doxy given her recent respiratory symptoms. Procalcitonin negative. Reports urinary hesitancy - re-check UA. Still w/ significant cough - cont. guaifenesin, doxy. Repeat procal. Viral respiratory infection/Parainfluenza 3 infection Parainfluenza 3 detected on viral PCR. No indication to continue Augmentin prescribed in outpatient setting (completed 5 days), completed 5 day prednisone taper Supportive care Essential hypertension: BP controlled, continue current meds, goal SBP of <130. Will not be aggressive given her age Hyperlipidemia: Continue statin History of CVA (cerebrovascular accident):Remote history of CVA with mild left sided weakness. Continue aspirin, statin Urinary hesitancy- started on Flomax. UA negative for UTI. Denies dysuria. Repeat UA today DVT Ppx: SQ lovenox Code status: FULL Dispo- Anticipate discharge in 1-2 days Admission and Anticipated Discharge Date Admission Date: February 28, 2023 Subjective Patient seen in follow up of hyponatremia Currently laying in bed in NAD Says she cannot go home as there is nobody at home. Per CM, plan is to take her home/her son's home, with home health. Used farm agent, patient is not aware of this. CM contacted as well. Reports urinary hesitancy. Will repeat UA - discussed w/ CHILD LIFE THERAPIST at the bedside. Continues to have a cough. No fever, chills, nausea or vomiting. Per PT, she was ambulating in hallway. nephrology following - contacted by Dr. Pepe, that sodium is good, no changes in meds at this time FR 1999 Review of Systems Review of Systems: All systems reviewed & are unremarkable except as noted in Subjective Physical Exam Physical Exam: General: obese F laying in bed, in NAD, on room air Chest: + diffuse rhonchi CVS: Regular rate and rhythm, normal heart sounds, no murmur Abdomen: Soft, non tender, not distended, normal bowel sounds Neuro: Awake, alert, oriented, conversing well, moves extremities Extremities: trace LE edema, moves extremities Skin: warm, dry Per previous hospitalist - yesterday -Observed ambulating with walker to the bathroom Results & Data Results & Data Vital Signs (Past 12 Hours) Vital Signs Temp Pulse Resp BP Pulse Ox O2 Del Method 03/11/23 07:41 36.6 C 108 H 16 119/70 94 Room Air Laboratory Results 03/11/23 03/11/23 03/11/23 Range/Units 11:59 08:16 08:16 WBC 8.51 (4.8-10.8) K/ul RBC 3.88 L (4.20-5.40) M/uL Hgb 10.0 L (12.0-16.0) g/dl Hct 30.1 L (37.0-47.0) % MCV 77.6 L (80.0-100.0) fL MCH 25.8 (25.0-34.0) pg MCHC 33.2 (32.0-36.0) g/dL RDW Std Deviation 44.1 (36.4-46.3) fL RDW Coeff of Jennifer 15.9 H (11.5-14.5) % Plt Count 248 (130-400) K/uL MPV 9.2 L (9.4-12.4) fL Sodium 141 (136-145) mmol/L Potassium 4.4 (3.5-5.1) mmol/L Chloride 99 (98-107) mmol/L Carbon Dioxide 35 H (21-32) mmol/L Anion Gap 7 (3-11) BUN 92 H D (6-23) mg/dl Creatinine 0.94 D (0.6-1.2) mg/dl Est Cr Clr Drug Dosing 46.9 ml/min Est GFR ( Amer) 65.9 ml/min Est GFR (Non-Af Amer) 56.9 ml/min BUN/Creatinine Ratio 97.9 H (10-20) Glucose 146 H (70-99(Fasting)) mg/dl POC Glucose 96 (70-99) mg/dl Calcium 9.3 (8.6-10.3) mg/dl Magnesium 1.8 (1.7-2.4) mg/dl 03/11/23 03/10/23 03/10/23 Range/Units 08:09 20:07 17:36 WBC (4.8-10.8) K/ul RBC (4.20-5.40) M/uL Hgb (12.0-16.0) g/dl Hct (37.0-47.0) % MCV (80.0-100.0) fL MCH (25.0-34.0) pg MCHC (32.0-36.0) g/dL RDW Std Deviation (36.4-46.3) fL RDW Coeff of Jennifer (11.5-14.5) % Plt Count (130-400) K/uL MPV (9.4-12.4) fL Sodium (136-145) mmol/L Potassium (3.5-5.1) mmol/L Chloride (98-107) mmol/L Carbon Dioxide (21-32) mmol/L Anion Gap (3-11) BUN (6-23) mg/dl Creatinine (0.6-1.2) mg/dl Est Cr Clr Drug Dosing ml/min Est GFR ( Amer) ml/min Est GFR (Non-Af Amer) ml/min BUN/Creatinine Ratio (10-20) Glucose (70-99(Fasting)) mg/dl POC Glucose 155 H 152 H 175 H (70-99) mg/dl Calcium (8.6-10.3) mg/dl Magnesium (1.7-2.4) mg/dl 03/10/23 Range/Units 12:07 WBC (4.8-10.8) K/ul RBC (4.20-5.40) M/uL Hgb (12.0-16.0) g/dl Hct (37.0-47.0) % MCV (80.0-100.0) fL MCH (25.0-34.0) pg MCHC (32.0-36.0) g/dL RDW Std Deviation (36.4-46.3) fL RDW Coeff of Jennifer (11.5-14.5) % Plt Count (130-400) K/uL MPV (9.4-12.4) fL Sodium (136-145) mmol/L Potassium (3.5-5.1) mmol/L Chloride (98-107) mmol/L Carbon Dioxide (21-32) mmol/L Anion Gap (3-11) BUN (6-23) mg/dl Creatinine (0.6-1.2) mg/dl Est Cr Clr Drug Dosing ml/min Est GFR ( Amer) ml/min Est GFR (Non-Af Amer) ml/min BUN/Creatinine Ratio (10-20) Glucose (70-99(Fasting)) mg/dl POC Glucose 139 H (70-99) mg/dl Calcium (8.6-10.3) mg/dl Magnesium (1.7-2.4) mg/dl Medications Administered Current Inpatient Medications Acetaminophen (Acetaminophen 500 Mg Tab) 1,000 mg PO Q8H PRN PRN Reason: Pain Stop: 04/01/23 07:25 Last Admin: 03/10/23 06:04 Dose: 1,000 mg Albuterol (Albuterol 0.5% Neb Soln 2.5 Mg/0.5 Ml Vial) 2.5 mg NEB Q6R PRN; Protocol PRN Reason: wheeze, cough Stop: 03/30/23 20:14 Last Admin: 03/01/23 09:38 Dose: 2.5 mg Albuterol (Albuterol 0.5% Neb Soln 2.5 Mg/0.5 Ml Vial) 2.5 mg NEB Q4 PRN; Protocol PRN Reason: SOB, wheezing Stop: 04/06/23 18:52 Aspirin (Aspirin 81 Mg Ectab) 81 mg PO DAILY [facility] Stop: 03/31/23 08:59 Last Admin: 03/11/23 08:51 Dose: 81 mg Atenolol (Atenolol 50 Mg Tablet) 12.5 mg PO QAM [facility] Stop: 04/07/23 08:59 Last Admin: 03/11/23 08:50 Dose: 12.5 mg Atorvastatin Calcium (Atorvastatin 10 Mg Tab) 10 mg PO DAILY [facility] Stop: 03/31/23 08:59 Last Admin: 03/11/23 08:50 Dose: 10 mg Cetirizine HCl (Cetirizine Hcl 10 Mg Tablet) 10 mg PO QAM [facility] Stop: 04/09/23 08:59 Last Admin: 03/11/23 08:50 Dose: 10 mg Dextrose (Dextrose 50% 50 Ml Syringe) 25 - 50 ml IV UD PRN; Protocol PRN Reason: Hypoglycemia Protocol Stop: 03/30/23 20:14 Last Admin: 03/05/23 21:27 Dose: 50 ml Diclofenac Sodium (Diclofenac Sod 1% Gel 100 Gm Tube) 2 gm EXT TID [facility]; Protocol Stop: 04/04/23 13:59 Last Admin: 03/11/23 08:46 Dose: Not Given Docusate Sodium (Docusate Sodium 100 Mg Cap) 100 mg PO BID [facility] Stop: 04/08/23 10:14 Last Admin: 03/11/23 08:49 Dose: Not Given Enoxaparin Sodium (Enoxaparin Inj 40 Mg/0.4 Ml Syr) 40 mg SQ Q24H [facility] Stop: 03/30/23 20:59 Last Admin: 03/10/23 20:30 Dose: 40 mg Gabapentin (Gabapentin 100 Mg Cap) 100 mg PO BID [facility] Stop: 04/04/23 10:59 Last Admin: 03/11/23 08:49 Dose: 100 mg Glucagon (Glucagon For Inj 1 Mg Vial) 1 mg SQ UD PRN; Protocol PRN Reason: Hypoglycemia Protocol Stop: 03/30/23 20:14 Glucose (Glucose 10 Tab/Tube) 4 - 8 tab PO UD PRN; Protocol PRN Reason: Hypoglycemia Treatment Stop: 03/30/23 20:14 Last Admin: 03/05/23 20:36 Dose: 8 tab Glucose (Glucose 40% Gel 15 Gm Tube) 15 - 30 gm PO UD PRN; Protocol PRN Reason: Hypoglycemia Protocol Stop: 03/30/23 20:14 Guaifenesin (Guaifenesin Sugar Free 200 Mg/10 Ml Udc) 200 mg PO Q6H PRN PRN Reason: Cough Stop: 04/05/23 21:16 Last Admin: 03/09/23 09:33 Dose: 200 mg Guaifenesin (Guaifenesin 600 Mg Tabcr) 600 mg PO Q12 [facility] Stop: 04/06/23 20:59 Last Admin: 03/11/23 08:48 Dose: 600 mg Hydralazine HCl (Hydralazine Hcl 20 Mg/Ml Vial) 10 mg IV Q6H PRN PRN Reason: Blood Pressure - High Stop: 04/01/23 13:14 Lidocaine (Lidocaine 5% 1 Patch) 1 patch TD QAM [facility] Stop: 04/01/23 20:59 Last Admin: 03/11/23 08:45 Dose: 1 patch Menthol (Cough Drop (Sugar Free) Jerson 24 Jerson/1 Box) 1 jerson BUCCAL QID PRN PRN Reason: Sore Throat Stop: 03/30/23 20:14 Last Admin: 03/02/23 16:08 Dose: 24 jerson Metformin HCl (Metformin Hcl 850 Mg Tab) 850 mg PO BIDM [facility] Stop: 04/08/23 11:34 Last Admin: 03/11/23 08:48 Dose: 850 mg Methimazole (Methimazole 5 Mg Tablet) 15 mg PO BID [facility] Stop: 04/09/23 20:59 Last Admin: 03/11/23 08:47 Dose: 15 mg Miscellaneous (Carbohydrates For Hypoglycemia ) 15 - 30 gm PO UD PRN PRN Reason: Hypoglycemia Protocol Stop: 03/30/23 20:14 Last Admin: 03/06/23 07:39 Dose: 15 gm Miscellaneous (Remove Lidoderm Patch) 1 each N/A DAILY@2100 [facility] Stop: 04/01/23 20:59 Last Admin: 03/10/23 20:31 Dose: 1 each Oxycodone HCl (Oxycodone Hcl Ir 5 Mg Tab (Immediate Release)) 5 - 10 mg PO QID PRN PRN Reason: Pain Stop: 03/19/23 06:04 Last Admin: 03/05/23 06:15 Dose: 5 mg Tamsulosin HCl (Tamsulosin Hcl 0.4 Mg Cap) 0.4 mg PO DAILY [facility] Stop: 04/07/23 10:29 Last Admin: 03/11/23 08:47 Dose: 0.4 mg Vitamin B Complex (Vitamin B Complex Tab) 1 tab PO DAILY [facility] Stop: 03/31/23 08:59 Last Admin: 03/11/23 08:47 Dose: 1 tab
[2023-03-11] MEDS: DOXYCYCLINE HYCLATE 100 MG CAP PO SCH ×2 (12:16→20:26)
[2023-03-11 13:01] LABS: Appearance Urine Clear (Clear); Bacteria Urine Automated Negative (Negative); Bilirubin Urine Negative (Negative); Blood Urine Negative (Negative); Cast Urine Automated 0 /lpf (0-5); Color Urine Yellow; Epithelial Cell Urine Auto >30 /lpf (0-5); Glucose Urine UA Negative (Negative); Ketones Urine Negative (Negative); Leukocyte Esterase Urine Trace (Negative); Nitrite Urine Negative (Negative); Protein Urine Negative (Negative); RBC Urine Automated 0-4 /hpf (0-4); Specific Gravity Urine 1.015 (1.000-1.030); Urobilinogen Urine Negative (Negative)
[2023-03-11] MEDS: ENOXAPARIN INJ 40 MG/0.4 ML SYR SQ SCH (20:26)
[2023-03-12] MEDS: ALBUTEROL 0.5% NEB SOLN 2.5 MG/0.5 ML VIAL NEB PRN (01:24)
[2023-03-12 07:46] LABS: Hematocrit (blood only) 30.8 % (37.0-47.0); Hemoglobin 10.2 g/dl (12.0-16.0); Mean Corpuscular Hemoglobin 25.6 pg (25.0-34.0); Mean Corpuscular Hgb Conc 33.1 g/dL (32.0-36.0); Mean Corpuscular Volume 77.2 fL (80.0-100.0); Mean Platelet Volume 9.5 fL (9.4-12.4); Platelet Count 273 K/uL (130-400); RDW Coefficient of Variation 15.9 % (11.5-14.5); RDW Standard Deviation 44.3 fL (36.4-46.3); Red Blood Count 3.99 M/uL (4.20-5.40); White Blood Count 10.01 K/ul (4.8-10.8)
[2023-03-12 08:14] LABS: BUN Creatinine Ratio 68.8 (10-20); Calcium 9.9 mg/dl (8.6-10.3); Creatinine Clr Calc Pharmacy 46.8 ml/min; Est GFR (African American) 66.8 ml/min; Est GFR (Non-African American) 57.6 ml/min; Magnesium 1.8 mg/dl (1.7-2.4); Phosphorus 4.8 mg/dl (2.5-4.9); Potassium 3.8 mmol/L (3.5-5.1)
[2023-03-12] MEDS: GABAPENTIN 100 MG CAP PO SCH (08:56)
[2023-03-12] MEDS: methIMAzole 5 MG TABLET PO SCH (08:57)
[2023-03-12] MEDS: guaiFENesin 600 MG TABCR PO SCH (08:57)
[2023-03-12] MEDS: TAMSULOSIN HCL 0.4 MG CAP PO SCH (08:57)
[2023-03-12] MEDS: DOCUSATE SODIUM 100 MG CAP PO SCH (08:58)
[2023-03-12] MEDS: metFORMIN HCL 850 MG TAB PO SCH (08:58)
[2023-03-12] MEDS: ATORVASTATIN 10 MG TAB PO SCH (08:58)
[2023-03-12] MEDS: CETIRIZINE HCL 10 MG TABLET PO SCH (08:58)
[2023-03-12] MEDS: ASPIRIN 81 MG ECTAB PO SCH (08:58)
[2023-03-12] MEDS: DOXYCYCLINE HYCLATE 100 MG CAP PO SCH (08:59)
[2023-03-12] MEDS: VITAMIN B COMPLEX TAB PO SCH (08:59)
[2023-03-12] MEDS: ATENOLOL 50 MG TABLET PO SCH (08:59)
[2023-03-12] MEDS: DICLOFENAC SOD 1% GEL 100 GM TUBE EXT SCH ×2 (09:00→15:04)
[2023-03-12] MEDS: LIDOCAINE 5% 1 PATCH TD SCH (09:00)
--- NOTE | 2023-03-12 10:20 | Nephrology Progress Note ---
Date of Service March 12, 2023 Assessment & Plan Admission and Anticipated Discharge Date Admission Date: February 28, 2023 Subjective [facility], [id number] Subjective Assessment & Plan (1) Hyponatremia: was 108 on admission -improving and chlorthalidone induced on the background on poor solute intake and respiratory virus/bronchiolitis on CT. 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 past 48 hrs responding to lasix na is now 140 with BUN trending down. No need of lasix and Urea for Low na+ will follow BMP for now. Daily BMP for now Will stop FFR but still better that she does not drink more than 2000 ml. lasix 40 iv x 1 with kcl 20 meq x 1 today. her BUN got as high as 125 with iv lasix and Urea so would not give her Chronically. Subjective na is good. Worried about weakness and Discharge Placement etc. C/o Some tight skin on her feet and edema. Also c/o FFR even though it is now 1999 Review of Systems Review of Systems: All systems reviewed & are unremarkable except as noted in Subjective Physical Exam Constitutional: well developed and well nourished; no acute distress Eyes: EOM intact bilaterally ENMT: Ears: no external ear abnormality Nose: no external nose abnormality Mouth: + dry oral mucous membranes Neck: no nuchal rigidity Respiratory: normal respiratory effort Auscultation: + diminished lung sounds and + rhonchi Cardiovascular: RRR, no murmur, no edema Gastrointestinal (Abdomen): Inspection/Auscultation: normal bowel sounds Percussion/Palpation: abdomen soft; abdomen nontender Musculoskeletal: Extremities: strength 5/5 throughout Skin: no rashes, warm and dry Results & Data Vital Signs (Past 12 Hours) Vital Signs Temp Pulse Resp BP Pulse Ox O2 Del Method 03/12/23 09:09 Room Air 03/12/23 07:22 36.6 C 100 H 16 116/50 L 94 Room Air 03/12/23 01:24 108 H 20 92 Room Air
[2023-03-12] MEDS ORDERED: POTASSIUM CHLORIDE CRTAB 20 MEQ TABCR PO STA (10:41)
[2023-03-12] MEDS ORDERED: FUROSEMIDE 40 MG/4 ML VIAL IV ONE (10:45)
--- NOTE | 2023-03-12 14:14 | Discharge Summary ---
Date of Service March 12, 2023 Admission HPI Per Admitting Provider This is an 82-year-old female with PMH of history of CVA with some residual left-sided weakness, hyperlipidemia, obesity SOB and cough x 5 days. History obtained by son at bedside, who she lives with. Son served as certified court/medical interpreter of [place] as preference due to limitations with interpretive service. Seen by PCP earlier this week due to respiratory symptoms and was started on Augmentin and 5 day prednisone taper she finished earlier today. Yesterday afternoon, patient felt comfortable and looked more energetic per son but then appeared more weak and swollen this morning and was directed to ED for further evaluation. Had some confusion this morning and was asking to be reminded of something they had discussed previously. But otherwise seems to be mentating close to baseline. Reported a subjective fever last night but has since resolved. No nausea, vomiting, abdominal pain, dysuria, diarrhea or constipation. Decreased urination and constipated for past few days but was able to urinate in ED without issue. L ast took medications atenolol-chlorthalidone yesterday morning. Of note, patient increased diuretic dose in October 2021 due to elevated pressure and sodium was 138 at that time. Have not been able to find any more recent lab work. Admission Exam Per Admitting Provider NAD, well developed HEENT: EOMI, PERRLA Lungs: CTA, no wheezing or crackles Cardiac: normal S1/S2, no murmur Abd: obese abd, ND, NT MSK: trace b/l LE pitting edema Psych: AAOx3 (but stated that the year is 2021), normal affect Principal Diagnosis Severe hyponatremia Hyperthyroidism Diabetes mellitus - new diagnosis Discharge Exam General: obese F, in NAD, on room air Chest: + diffuse rhonchi CVS: Regular rate and rhythm, normal heart sounds, no murmur Abdomen: Soft, non tender, not distended, normal bowel sounds Neuro: Awake, alert, oriented, conversing well, moves extremities Extremities: minimal LE edema, moves extremities Skin: warm, dry Discharge Data Allergies Allergy/AdvReac Type Severity Reaction Status Date / Time No Known Allergies Allergy Unverified 02/28/23 15:56 Consultations 02/28/23 15:54 ED Decision to Admit Stat 02/28/23 16:10 Consult Nephrology Routine 02/28/23 18:06 Consult Intelligence Operations Routine 03/02/23 19:57 Consult Intelligence Operations Routine Ordered Studies 03/03/23 07:48 CT chest diagnostic w con Routine FINDINGS: Lung volumes are normal. Lungs are clear. There is no pneumothorax or pleural effusion. Stable cardiomegaly. Mediastinal contours are normal. There is no evidence for pulmonary edema. IMPRESSION: No acute cardiopulmonary findings. No change in appearance of the chest. 03/05/23 06:05 US venous doppler LE RT Urgent FINDINGS/IMPRESSION: Currently there is normal compressibility of the deep venous system from the co mmon femoral vein through the proximal calf veins. No superficial venous thrombosis is identified. Hospital Course (1) Hyponatremia: (2) Viral respiratory infection: (3) Hypertension: (4) Hyperlipidemia: (5) History of CVA (cerebrovascular accident): (6) Hyperthyroidism: (7) Abnormal CT scan, chest: Plan 82 yo F with history of CVA with some residual left-sided weakness, hyperlipidemia, obesity SOB and cough x 5 days and was found to have severe hyponatremia on admission. Presented with acute confusion and also unstable eating gait which is now resolved. Severe hyponatremia-sodium 108->111->115->118->122->123->125->128-->130->133 -> 141 -> correcting appropriately, nephrology managing. 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 Low urine and serum osmolality and high random urine sodium. Cortisol level normal. TSH suppressed,fT4 elevated, fT3 normal Nephrology managing-status post IV Lasix, fluid restriction, urea. Urea added 03/07/23 but discontinued today 03/09 due to elevated BUN. Lasix discontinued 03/10. 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 Does not have overt hypothyroid symptoms. TSH suppressed <0.01, T4 elevated 2.2, free T3 normal, thyroid receptor antibody pending. Discussed with Dr Barker and recommended starting methimazole 15 mg bd and outpatient follow up with endocrinology in 3 weeks. Started on methimazole. DM-2- newly diagnosed. A1c 8%. Multiple hypoglycemic episodes due to mismatch between insulin and oral intake. Discontinued insulin due to family concerns about hypoglycemia and metformin added. Monitor. Carb controlled diet. Will not be aggressive given her age and comorbidities. Will need to follow up with PCP for further management. Diabetic neuropathy- burning sensation in sole and pain other body parts could be from neuropathy, started gabapentin and Voltaren gel. US duplex negative for clots Leukocytosis- resolved. UA unremarkable. Completed 6 days of doxy given her recent respiratory symptoms. Procalcitonin negative. Reports urinary hesitancy - re-checked UA- negative. Still w/ significant cough - cont. guaifenesin, doxy. Pt is on room air, saturating well. Repeat procalcitonine negative Viral respiratory infection/Parainfluenza 3 infection Parainfluenza 3 detected on viral PCR. No indication to continue Augmentin prescribed in outpatient setting (completed 5 days), completed 5 day prednisone taper Supportive care Essential hypertension: BP controlled, continue current meds- atenolol, goal SBP of <130. Will not be aggressive given her age Hyperlipidemia: Continue statin History of CVA (cerebrovascular accident):Remote history of CVA with mild left sided weakness. Continue aspirin, statin Urinary hesitancy- UA negative for UTI. Denies dysuria Total Time Total Time Spent Total Time Spent (In Minutes): 40 Discharge Plan Discharge Items Patient Disposition: Home - Home Health Services Reason For Visit: SEVERE HYPONATREMIA Discharge Diagnosis: Severe hyponatremia Hyperthyroidism Diabetes mellitus - new diagnosis Condition on Discharge: Fair Activity: Per Instructions section Non-emergency contact: Primary Care Provider and Specialist Call non-emergency contact if: you have any medication questions and your symptoms worsen Follow-up/Referrals: Júnior Kerr PA-C [Physician Upholstery Tech] - 07/10/23 9:00 am (The Endocrinology office will call you with a sooner appointment. If you do not hear from them, please call the office.) Komal Salazar MD [Primary Care Provider] - (Date & Time 03/19/2023 11:20 AM Provider Komal Salazar MD Department General Internal Medicine [facility] ) Diet: Carb Consistent or DM2, Heart Healthy and Lactose Intolerant Fluids: 2000ml (8 cups) Addtl Attending Provider Instructions: Follow-up with your primary care provider, within 1 week. The appointment was scheduled for you for March 19. You will also need to follow-up with endocrinology in 3 weeks. You will be contacted about the appointment. In the meantime, take methimazole 15 mg twice a day (for next 2-3 weeks). You will need blood work, BMP, to check on your sodium level. This should be done in about 2-3 days. Primary care doctor will order that for you. Your hemoglobin A1c is elevated at 8.0%, which is a new diagnosis of diabetes. Take metformin 850 mg twice a day. Discuss further with your primary care physician how your medications, diet should be changed. Do not take chlorthalidone, as your sodium was very low when you came to the hospital. Continue taking atenolol. Continue to monitor your blood pressure. Continue taking guaifenesin for next few days. Pending Studies at Discharge: No Stand-Alone Forms: [facility], Smoking Cessation Medications and DC Order Prescriptions: New atenolol 50 mg Tablet 12.5 mg PO QAM Qty: 10 0RF metformin 850 mg Tablet 850 mg PO BID Qty: 20 0RF Rx Instructions: take with meal methimazole 5 mg Tablet 15 mg PO BID 21 Days Qty: 126 0RF guaifenesin [Mucinex] 600 mg Tablet Extended Release 12hr 600 mg PO Q12 5 Days Qty: 10 0RF gabapentin 100 mg Capsule 100 mg PO BID Qty: 10 0RF Continued atorvastatin 10 mg tablet 10 mg PO DAILY vitamin B complex Tablet 1 tab PO DAILY ascorbic acid (vitamin C) 100 mg Tablet 0 mg PO DAILY aspirin 81 mg Capsule 81 mg PO DAILY Discontinued atenolol-chlorthalidone 50-25 mg tablet 1 tab PO DAILY Qty: 30 0RF prednisone 20 mg tablet 20 mg PO UD Rx Instructions: BEGIN 02/24/23 X 5 DAYS. LAST DOSE 02/28/23 IN AM. amoxicillin-pot clavulanate 875-125 mg tablet 1 tab PO BID Rx Instructions: BEGIN 02/25/23 X 10 DAYS. Discharge Orders: Discharge Order (Routine); Ordered 03/12/23 Ordered By: Damion Hackett/Other Patient Handouts: A1C, 5 Steps for Eating Healthier Admission Data Admit Date/Time: 02/28/23 18:03 Attending Provider: Damion Loaiza Admit Provider: Shailesh Gómez Primary Care Provider: Komal Salazar Other Providers: [facility],Home Health ; [facility],Home Healthcare ; Shailesh Gómez ; Kimberli Esparza ; Shmuel Armenta ; Kasi King ; Vick Hendrix ; Ganesh Castañeda ; [facility]
== END 2023-03-12 15:44 | disposition home health service (06) | DRG 644 ==
LOC: ED 12:17 → SUATTDRO 18:03 → 1E 18:03 → 2E 03-04 21:54 → 3W 03-08 14:48